=== PATIENT | female | born 2000 | race Caucasian/White ===

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

== ENCOUNTER 2018-03-21 09:25 | Day surgery (SDC) | payer OTHER ==
--- NOTE | 2018-03-11 20:03 | HP ---
PREOPERATIVE HISTORY AND PHYSICAL EXAM: DATE OF ADMISSION/SURGERY: 03/21/18 [facility] DATE OF OFFICE VISIT/ENCOUNTER: 03/05/18 ATTENDING SURGEON: Gayla Daily MD * (DICTATED BY TAMIKO TROTTER) PROCEDURE: Excision mass, left wrist. CHIEF COMPLAINT: Mass, left wrist. 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 She complaints of a painful mass on the volar radial aspect of her wrist that has been present for over a year, some times it gets quite painful. She has tried wearing a brace, but that has not been very helpful. She does not recall any specific injury. She occasionally has numbness and tingling associated with it. She would like to have it surgically removed. PAST MEDICAL HISTORY: Unremarkable. PAST SURGICAL HISTORY: 1. Tonsillectomy. 2. Cyst removed from behind left ear. CURRENT MEDICATIONS: 1. Apri 0.15-30 mg-mcg 1 tab daily. 2. Naproxen p.r.n. ALLERGIES: No known drug allergies. FAMILY MEDICAL HISTORY: Diabetes, hypertension, and cancer. SOCIAL HISTORY: The patient is a student at [employer]. She denies tobacco use or recreational drug use, and does not drink alcohol. REVIEW OF SYSTEMS: Negative for general, cephalic, cardiovascular, respiratory , GI, , other musculoskeletal, integumentary, endocrine, neurologic, and hematologic symptoms. Infectious disease is negative for MRSA, hepatitis C, and HIV. No known anesthesia problems. PHYSICAL EXAMINATION GENERAL: Well-developed, well-nourished, 18-year-old female, in no acute distress. VITAL SIGNS: Height 5 feet tall, weight 146 pounds, pulse rate 88, and blood pressure 92/70. HEENT: Normocephalic and atraumatic. Pupils are equal, round, and reactive to light and accommodation. Extraocular movements are intact. NECK: Supple. No palpable lymph nodes. Throat is clear. PULMONARY: Lungs are clear to auscultation bilaterally. No wheezes, rales, or rhonchi. CARDIOVASCULAR: Regular rate and rhythm. S1 and S2. No murmurs, rubs, or gallops. No edema. ABDOMEN: Positive bowel sounds, soft, and nontender. NEUROLOGIC: Alert and oriented x3. Cranial nerves II through XII are intact. Sensation is intact to light touch. MUSCULOSKELETAL: On exam of the left wrist, she has a cystic mass on the volar radial aspect of the wrist, it is tender to palpation. She has good range of motion of the wrist in both flexion and extension. She can make a full fist. Neurovascular function is intact. Skin is intact. IMAGING STUDIES: X-rays AP, lateral, and oblique of the left wrist appear normal. IMPRESSION: Left volar wrist ganglion. PLAN: The patient is scheduled to undergo an excision mass, left wrist with Dr. Daily on 03/21/18. She will return to the office 10 days postop for followup and suture removal. A prescription for Ultracet was e-scribed to the patient's pharmacy for postoperative pain management. TAMIKO TROTTER [id number]/[facility] #: [id number] MTDCindy
[2018-03-21] MEDS ORDERED: fentaNYL* 50 MCG/ML 2 ML VIAL (100 MCG VIAL) ONE (10:27)
[2018-03-21] MEDS ORDERED: Propofol* 10 MG/ML 20 ML BTL IV PUSH ONE ×2 (10:29→11:16)
[2018-03-21] MEDS ORDERED: Lidocaine 2% PF * 5 ML VIAL ONE (10:29)
[2018-03-21] MEDS ORDERED: Lidocaine 1% INJ* 10 MG/ML 30 ML SDV ONE (10:47)
[2018-03-21 13:18] VITALS: BP 101/62
[2018-03-21] MEDS ORDERED: traMADol TAB* 50 MG ONE (13:24)
[2018-03-21] MEDS ORDERED: Acetaminophen TAB* 325 MG ONE (13:25)
--- NOTE | 2018-03-22 05:26 | OP ---
DATE OF OPERATION: 03/21/18 [facility] DATE OF : 89 SURGEON: Gayla Daily MD RELATIONSHIP BANKER: TAMIKO Ramesh ANESTHESIA: Local MAC. PRE-OP DIAGNOSIS: Left wrist mass. POST-OP DIAGNOSIS: Left wrist mass. OPERATIVE PROCEDURE: Left wrist mass excision. ESTIMATED BLOOD LOSS: Zero. TOURNIQUET TIME: About 15 minutes. INDICATIONS FOR PROCEDURE: Fer is a 18-year-old female with a painful mass on the volar radial aspect of her left wrist. She presents for removal. Clinically, the mass is a ganglion cyst. DESCRIPTION OF PROCEDURE: The patient was brought to the operating room, was given a sedation anesthetic and a local infiltration total of 16 cc of 1% plain lidocaine on the volar radial aspect of her left wrist. The skin of her left upper extremity was prepped and draped in usual sterile fashion. The hand and forearm were exsanguinated and the tourniquet elevated to 250 mmHg. A Chevron incision was made centered over the mass which appeared to be a ganglion cyst emanating from the FCU tendon sheath. The radial artery was carefully dissected away from the mass and the mass was removed with a small portion of the flexor tendon sheath. The edges of the sheath were cauterized with the Bovie. There was no extension of the mass down to the wrist joint. The wound was reapproximated with 4-0 nylon suture and then dressed with Xeroform, 4x4, Webril and an Kayode wrap. The patient tolerated the procedure well and was brought to the recovery room in good condition. [id number]/[facility] #: [id number] [facility] HOSPITALCindy
== END 2018-03-21 13:33 | disposition home or self-care (01) ==
LOC: OREAST 09:25
PROVIDERS: ATTEND Orthopaedic Surgery
DX: M67.432 Ganglion, left wrist (principal)
CPT/HCPCS: 81025; 88304; A9270-GY; J2704; J3010

== ENCOUNTER 2018-04-05 14:41 | Emergency (ER) | payer OTHER ==
--- OUTSIDE RECORDS SUMMARY | 2018-04-05 14:46 | XMS REPORT ---
:2000 External Reference #:[id number] Author Organization [facility] Address [address] [place] [address] [place] [address] Phone [phone] Care Team Providers Name Role Phone Alisia Mcfarland DO Care Team Information Allergist/Pediatric Pulmonologist Unavailable Alisia Mcfarland DO Primary Care Physician Unavailable Payers Type Date Identification Numbers Payment Provider Subscriber Commercial Effective: Policy Number: [id number] [employer] Anton Lynch 2010 Medicaid PayID: [id number] [place] [id number] Problems Description No Information Family History Date Family Member(s) Problem(s) Comments General Diabetes General Hypertension General Cancer Social History Type Date Description Comments Lives With Sister ETOH Use Denies alcohol use Smoking Patient has never smoked Exercise Type/Frequency Exercises regularly Allergies, Adverse Reactions, Alerts Date Description Reaction Status Severity Comments 03/05/2018 NKDA active Medications Medication Date Status Form Strength Qnty SIG Indications Ordering Provider No Active Active Unknown Medications 018 Ultracet Hx Tablets 37.5-325mg 15tabs 1 tab by Gayla 018 - mouth Valdemar Daily every 018 4-6 hours as needed pain Apri Hx Tablets 0.15-30mg-m 1 by Unknown 000 - cg mouth every 018 day Vital Signs Date Vital Result Comment 03/31/2018 Height 60 inches 5'0" Heart Rate 80 /min BP Systolic 118 mmHg BP Diastolic 80 mmHg Body Temperature 97.5 F Pain Level 0 03/05/2018 Height 60 inches 5'0" Weight 146.50 lb Heart Rate 88 /min BP Systolic Sitting 92 mmHg BP Diastolic Sitting 70 mmHg Respiratory Rate 16 /min Body Temperature 98.6 F Pain Level 7 BMI (Body Mass Index) 28.6 kg/m2 10/26/2010 Height 60 inches 5'0" Weight 109.00 lb Heart Rate 82 /min BP Systolic 99 mmHg BP Diastolic 63 mmHg BMI (Body Mass Index) 21.3 kg/m2 Blood Pressure Percentile 24 % Height Percentile 31 % Weight Percentile 67th Results Test Date Test Result H/L Range Note Laboratory test 03/21/2018 Surgical Pathology SEE RESULT BELOW 1, 2 finding Laboratory test 12/28/2017 Monospot Negative Negative 3, 4 finding Leo Ellison 12/28/2017 Ebv Capsid Ag IgG Negative Negative 3 Comprehensive Ab Ebv Capsid Ag IgM Ab Negative Negative 3 Leo-Ellison Nuclear Antigen Negative Negative 3 Leo-Ellison Virus Interp See Comment 3, 5 Laboratory test finding 12/28/2017 Rapid Strep Molecular Negative Negative 6 1 [id number] 2 SEE RESULT BELOW Name: JOHAN LYNCH : [address]: Gayla Daily MD Acct: [id number] Unit: [id number] AGE: 18 Location: [facility] Re03/21/18 SEX: F Status: RUSSELL JEROME SPEC: [id number] MICHAEL: 03/21/18-[address] [facility] [address]: Gayla Daily MD REQ: [id number] RECD: 03/21/18 STATUS: SOUT _ ORDERED: LEVEL 3 COMMENTS: [id number] FINAL DIAGNOSIS Soft tissue, left wrist, excision: -- Ganglion cyst. PRE-OPERATIVE DIAGNOSIS Left wrist mass GROSS DESCRIPTION The specimen is received in formalin labeled, Ganglion Left Wrist, and consists of a 0.5 x 0.4 x 0.3 cm belle-white rubbery fibrous tissue fragment admixed with yellow- white fat. The specimen is inked, bisected and submitted entirely in one cassette. Signed by and Reported on: Florentin Mehta MD [id number] END OF REPORT DEPARTMENT OF PATHOLOGY, [address] [place] [address] Florentin Mehta M.D. Director [facility] # [id number] Would you like an EBV if Monospot is Negative?: Y 5 Results suggest no prior exposure to Leo-Ellison Virus. However, a second serum specimen should be tested in 10-14 days if clinically indicated. ADDITIONAL INFORMATION In most populations, at least 90% of the adult population will have been infected with EBV sometime in the past and therefore, will be positive for anti-VCA/IgG and anti- EBNA. Antibodies to EBNA develop 6-8 weeks after primary infection and remain present for life. Presence of VCA/ IgM antibodies indicates recent primary infection with EBV. Test Performed by: [facility] [address], [place] [address] 6 [place]. Commissioner: [id number] Procedures Description No Information Encounters Type Date Location Provider CPT E/M Dx Office Visit 03/05/2018 [facility] Gayla Daily, [id number] R22.32 3:15p [facility] M67.432 Office Visit 10/26/2010 8:30a [facility], [id number] 719.46 [facility] Plan of Care Future Appointment(s):05/01/2018 8:00 am - Gayla Daily M.D. at [facility]/2018 - Gayla Daily M.D.M67.432 Ganglion, left wristFollow up:Follow up: 4 weeksRecommendations:Massage scar 3-4 times daily for 5 minutes with cocoa butter or Vitamin E lotion
[2018-04-05 15:05] VITALS: BP 115/77
--- NOTE | 2018-04-05 16:10 | UC ---
Abdominal Pain Female HPI - HPI Summary HPI Summary: 18 year old female presents with 2 day history of lower abdominal pain. Describes pain as constant cramping. Denies aggravating factors. Improved with ibuprofen. Started with onset of menstrual period. She did note some heavy bleeding initially but has improved. Has history of 1 other episode of dysmenorrhea with the passing of some tissue that was thought to have been a miscarriage although she states this was ruled out and she was told she had "some extra tissue on her ovaries". Denies fever, chills, nausea, vomiting, diarrhea, dysuria, frequency, urgency, vaginal discharge. She is on oral control. Denies missing any doses. Sexually active and does not use any other barrier protection. - History of Current Complaint Chief Complaint: UCAbdominalPain Stated Complaint: ABD PAIN Time Seen by Provider: 04/05/18 15:35 Hx Obtained From: Patient Hx Last Menstrual Period: on control but period was 03/10/2018 ?: No Onset/Duration: Gradual Onset, Lasting Days - 2 Timing: Constant Severity Currently: Moderate Pain Intensity: 7 Location: Other - lower abdomen Radiates: No Character: Cramping Aggravating Factor(s): Nothing Alleviating Factor(s): OTC Analgesics Associated Signs and Symptoms: Positive: Vaginal Bleeding - Menses. Negative: Fever, Back Pain, Constipation, Blood in Stool, Urinary Symptoms, Vaginal Discharge, Nausea, Vomiting, Diarrhea Allergies/Adverse Reactions: Allergies Allergy/AdvReac Type Severity Reaction Status Date / Time No Known Allergies Allergy Verified 03/21/18 09:44 Home Medications: Home Medications Aspirin 325 mg PO 04/05/18 [History] PMH/Surg Hx/FS Hx/Imm Hx Previously Healthy: Yes - Denies significant PMH - Surgical History Surgical History: Yes Surgery Procedure, Year, and Place: 2004 T & A, CYST REMOVAL FORM [facility]. cyst removed from her wrist a week ago - Family History Family History: Noncontributory - Social History Occupation: Student Lives: Dormitory/Roommates Alcohol Use: None Substance Use Type: None Smoking Status (MU): Never Smoked Tobacco Have You Smoked in the Last Year: No - Immunization History Vaccination Up to Date: Yes Review of Systems Constitutional: Negative Respiratory: Negative Cardiovascular: Negative Gastrointestinal: Abdominal Pain Genitourinary: Negative Is Patient Immunocompromised?: No All Other Systems Reviewed And Are Negative: Yes Physical Exam Triage Information Reviewed: Yes Appearance: Well-Appearing, No Pain Distress, Well-Nourished Vital Signs: Initial Vital Signs Temp 97.7 F 04/05/18 14:57 Pulse 86 04/05/18 14:57 Resp 16 04/05/18 14:57 BP 115/77 04/05/18 14:57 Pulse Ox 98 04/05/18 14:57 Vital Signs Reviewed: Yes Respiratory: Positive: Lungs clear, Normal breath sounds, No respiratory distress Cardiovascular: Positive: RRR, No Murmur Abdomen Description: Positive: No Organomegaly, Soft, Other: - Mild lower abdominal tenderness without rebound tenderness or peritoneal signs.. Negative : CVA Tenderness (R), CVA Tenderness (L), Distended, Guarding Bowel Sounds: Positive: Present Neurological: Positive: Alert Skin Exam: Normal Diagnostics - Laboratory Diagnostic Studies Completed/Ordered: UA 1+ protein, trace ketones, 3+ blood. Urine negative. Abd Pain Female Course/Dx - Course Course Of Treatment: 18 year old female presents with 2 day history of lower abdominal pain with onset of mestrual period. She was concerned about unusually heavy bleeding at the start of her period after a previous episode that was thought to have been a miscarriage although there is some question whether this was actually the case. She states the bleeding has diminished and her pain improved with ibuprofen. Her POC urinalysis showed only small amount of protein and trace ketones with 3+ blood. Her urine was negative. I suspect that her symptoms are dysmenorrhea however discussed with patient that I could not rule out other diagnoses such as ovarian cyst, ovarian torsion, or appendicitis. She is electing for watchful waiting. Reviewed warning symptoms requiring immediate evaluation in the emergency room. Verbalizes understanding and agrees with POC. - Differential Dx/Diagnosis Differential Diagnosis: Appendicitis, Ectopic , Urinary Tract Infection Provider Diagnoses: dysmenorrhea Discharge - Sign-Out/Discharge Documenting (check all that apply): Patient Departure All imaging exams completed and their final reports reviewed: No Studies - Discharge Plan Condition: Stable Disposition: HOME Patient Education Materials: Dysmenorrhea (ED) Forms: *Work Release Referrals: Ceasar Garza, MANAGER PRODUCT SUPPORT [Primary Care Provider] - 3 Days (If no improvement in symptoms.) Additional Instructions: The urine test was performed in the clinic today did not show any signs of infection and her test was also negative. I suspect that your pain is related to your menstrual period. Continue taking ibuprofen 600 mg every 8 hours as needed for pain. Follow-up with your primary care provider in 3 days if symptoms persist. Seek immediate medical attention in the emergency room if you develop fever greater than 100.5 F, have worsening abdominal pain, persistent vomiting, heavy vaginal bleeding that requires you to change her pad more than once every 1-2 hours, you become weak, dizzy, or lightheaded, or any worsening of symptoms. - Billing Disposition and Condition Condition: STABLE Disposition: Home - Attestation Statements Provider Attestation: I was available for consult. This patient was seen by the PATRICIA. The patient was not presented to, seen by, or examined by me. -All
== END 2018-04-05 16:51 | disposition home or self-care (01) ==
LOC: UCEAST 14:41
DX: N94.6 Dysmenorrhea, unspecified (principal)
CPT/HCPCS: 81003; 84702; 99211; G0463

== ENCOUNTER 2018-06-21 19:41 | Emergency (ER) | payer OTHER ==
[2018-06-21] MEDS ORDERED: NS 0.9% 1000 ML* 1,000 ML IV ONE (19:50)
[2018-06-21] MEDS ORDERED: Ondansetron INJ* 2 MG/ML VIAL IV ONE (19:50)
[2018-06-21] MEDS ORDERED: Morphine VIAL* 4 MG/ML VIAL (1 ml vial) IV ONE ×2 (19:52→22:36)
--- NOTE | 2018-06-21 19:56 | ED ---
Abdominal Pain/Female - HPI Summary HPI Summary: A 18 y/o female accompanied by her parents presents to the ED c/o right lower quadrant abdominal pain. Currently, the patient is still experiencing right lower quadrant abdominal pain reaching 7/10 in severity. In the ED room, the patient has a pulse of 108 BPM and O2 saturation of 99%. As per triage, "BIB EMS due to RLQ pain since afternoon today. Pt reports pain started suddenly and has gotten worse since. Also reports nausea; denies vomiting or diarrhea. Reports hx of PCOS; LMP aprox. 05/31". According to the patient, she has been experiencing right lower abdominal pain since the start of today (06/21/2018). She has no other medical problems at this time. No PMHx of appendectomy and cholecystectomy. SHx of no ETOH or smoking. Patient denied pain medications at this time. - History of Current Complaint Chief Complaint: EDAbdPain Stated Complaint: ABD PAIN Time Seen by Provider: 06/21/18 19:47 Hx Obtained From: Patient Hx Last Menstrual Period: 04/05/18 Onset/Duration: Sudden Onset, Lasting Hours, Still Present Timing: Constant Severity Initially: Moderate Severity Currently: Moderate Pain Intensity: 7 Pain Scale Used: 0-10 Numeric Location: Discrete At: RLQ Radiates: No Aggravating Factor(s): Nothing Alleviating Factor(s): Nothing Associated Signs and Symptoms: Positive: Negative Allergies/Adverse Reactions: Allergies Allergy/AdvReac Type Severity Reaction Status Date / Time No Known Allergies Allergy Verified 05/25/18 13:28 PMH/Surg Hx/FS Hx/Imm Hx Endocrine/Hematology History: Denies: Hx Diabetes, Hx Thyroid Disease Cardiovascular History: Denies: Hx Hypertension, Hx Pacemaker/ICD Respiratory History: Denies: Hx Asthma, Hx Chronic Obstructive Pulmonary Disease (COPD) GI History: Denies: Hx Ulcer Sensory History: Reports: Hx Contacts or Glasses - GLASSES Denies: Hx Hearing Aid Opthamlomology History: Reports: Hx Contacts or Glasses - GLASSES Psychiatric History: Reports: Hx Anxiety - tends to get anxious with "overload" no meds Denies: Hx Panic Disorder - Surgical History Surgery Procedure, Year, and Place: 2004 T & A, CYST REMOVAL FORM [facility]. cyst removed from her wrist a week ago Hx Anesthesia Reactions: No Infectious Disease History: No Infectious Disease History: Denies: Hx Clostridium Difficile, Hx Hepatitis, Hx Human Immunodeficiency Virus (HIV), Hx of Known/Suspected MRSA, Hx Shingles, Hx Tuberculosis, Hx Known/ Suspected VRE, Hx Known/Suspected VRSA, History Other Infectious Disease, Traveled Outside the [place] in Last 30 Days - Family History Known Family History: Positive: Hypertension Family History: Noncontributory - Social History Alcohol Use: None Substance Use Type: Reports: None Smoking Status (MU): Never Smoked Tobacco Have You Smoked in the Last Year: No Review of Systems Negative: Fever Positive: Abdominal Pain - RLQ All Other Systems Reviewed And Are Negative: Yes Physical Exam - Summary Physical Exam Summary: Appearance: Well appearing, pain distress Skin: warm, dry, reflects adequate perfusion Head/face: normal Eyes: EOMI, OLEG ENT: normal Neck: supple, non-tender Respiratory: CTA, breath sounds present Cardiovascular: RRR, pulses symmetrical Abdomen: soft, tenderness in right lower quadrant Musculoskeletal: normal, strength/ROM intact Neuro: normal, sensory motor intact, A&Ox3 Triage Information Reviewed: Yes Vital Signs On Initial Exam: Initial Vitals Temp Pulse Resp BP Pulse Ox 98.6 F 110 20 139/72 100 06/21/18 19:42 06/21/18 19:42 06/21/18 19:42 06/21/18 19:42 06/21/18 19:42 Vital Signs Reviewed: Yes Diagnostics - Vital Signs Vital Signs Temp Pulse Resp BP Pulse Ox 06/21/18 19:42 98.6 F 110 20 139/72 100 - Laboratory Result Diagrams: 06/21/18 20:18 06/21/18 20:18 Lab Statement: Any lab studies that have been ordered have been reviewed, and results considered in the medical decision making process. - CT CT A/P CT Interpretation Completed By: Radiologist Summary of CT Findings: No CT findings to correlate with patient's symptomatology. Specifically no. appendicitis. ED PHYSICIAN REVIEWED THIS RADIOLOGY REPORT. Re-Evaluation - Re-Evaluation First Eval Re-Evaluation Time: 21:23 Comment: PATIENT WOULD LIKE PAIN MEDICATIONS. Abdominal Pain Fem Course/Dx - Course Course Of Treatment: A 18 y/o female accompanied by her parents presents to the ED c/o right lower quadrant abdominal pain. Currently, the patient is still experiencing right lower quadrant abdominal pain reaching 7/10 in severity. In the ED room, the patient has a pulse of 108 BPM and O2 saturation of 99%. According to the patient, she has been experiencing right lower abdominal pain since the start of today (06/21/2018). She has no other medical problems at this time. No PMHx of appendectomy and cholecystectomy. Physical examination findings significant for tenderness in right lower quadrant and patient is in pain distress. A CT A/P revealed no CT findings to correlate with patient's symptomatology. Specifically no appendicitis. Hematology, Chemistry, and urinalysis screens were done. No significant laboratory abnormalities were found , except in urine screen. In the ED course, the patient received Omnipaque, Morphine, Bactrim, Zofran. And IV fluids. Patient will be discharged with a diagnosis of UTI. Patient will be sent home with a prescription for Motrin, Zofran, and Bactrim. Patient is to take medication as prescribed. Patient is to follow up with primary care provider in 2-3 days. Patient is to return to ED for any new or worsening symptoms. Patient is agreeable with this plan. - Diagnoses Differential Diagnosis: Positive: Appendicitis, Renal Colic, Urinary Tract Infection Provider Diagnoses: UTI (urinary tract infection) Discharge - Sign-Out/Discharge Documenting (check all that apply): Patient Departure - DISCHARGE - Discharge Plan Condition: Stable Disposition: HOME Prescriptions: Ibuprofen TAB* [Motrin TAB* 600 MG] 600 mg PO Q8H PRN #15 tab MDD 3 PRN Reason: Pain Ondansetron ODT TAB* [Zofran 4 MG Odt TAB*] 4 mg PO Q8H PRN #15 tab.odt MDD 3 PRN Reason: Vomiting Sulfamethox/Trimethoprim DS* [Bactrim DS 800/160 TAB*] 1 tab PO BID #10 tab Patient Education Materials: Urinary Tract Infection in Women (ED) Referrals: Ceasar Garza, WEB PRESS OPERATOR ASSISTANT [Primary Care Provider] - 3 Days Additional Instructions: TAKE MEDICATION PRESCRIBED. FOLLOW UP WITH PRIMARY CARE PROVIDER IN 2-3 DAYS. RETURN TO ED FOR ANY NEW OR WORSENING SYMPTOMS. - Billing Disposition and Condition Condition: STABLE Disposition: Home - Attestation Statements Document Initiated by Scribe: Yes Documenting Scribe: Julian Webb Provider For Whom Scribe is Documenting (Include Credential): MD Tony Crawfordibe Attestation: Julian Lerma, scribed for Elie Guajardo MD on 06/22/18 at 0104. Scribe Documentation Reviewed: Yes Provider Attestation: The documentation as recorded by the scribe, Julian Webb accurately reflects the service I personally performed and the decisions made by me, Elie Guajardo MD Status of Scribe Document: Viewed
[2018-06-21 20:28] LABS: ABS Basophils 0 10^3/ul (0-0.2); ABS Eosinophils 0.1 10^3/ul (0-0.6); ABS Lymphocytes 1.1 10^3/ul (1.0-4.8); ABS Monocytes 0.7 10^3/ul (0-0.8); ABS Neutrophils 11.9 10^3/ul (1.5-7.7); ABS Nucleated RBC 0 10^3/ul; Eosinophil % 0.7 %; Hematocrit 38 % (35-47); Hemoglobin 12.7 g/dl (12.0-16.0); Lymphocyte % 7.9 %; Mean Corpuscular HGB Conc 34 g/dl (31-36); Mean Corpuscular Hemoglobin 29 pg (27-31); Mean Corpuscular Volume 88 fL (80-97); Mean Platelet Volume 7.1 fL (7.4-10.4); Nucleated Red Blood Cells % 0; Platelet Count 409 10^3/ul (150-450); Red Blood Count 4.33 10^6/ul (4.00-5.40); Red Cell Distribution Width 13 % (10.5-15); White Blood Count 13.9 10^3/ul (3.5-10.8)
[2018-06-21 20:37] LABS: INR 1.07 (0.77-1.02)
[2018-06-21 20:45] LABS: ALT 11 U/L (7-52); AST 14 U/L (13-39); Albumin/Globulin Ratio 1.3 (1-3); Alkaline Phosphatase 59 U/L (34-104); Anion Gap 9 mmol/L (2-11); Blood Urea Nitrogen 12 mg/dL (6-24); CO2 Carbon Dioxide 21 mmol/L (22-32); Calcium 9.1 mg/dL (8.6-10.3); Chloride 106 mmol/L (101-111); EGFR Non-African American 91.4 (>60); Globulin 3.2 g/dL (2-4); Glucose 118 mg/dL (70-100); Potassium 3.6 mmol/L (3.5-5.0); Sodium 136 mmol/L (135-145); Total Protein 7.2 g/dL (6.4-8.9)
[2018-06-21 20:52] LABS: HCG Pregnancy < 0.60 mIU/mL
[2018-06-21] MEDS ORDERED: Iohexol 300* (CONTRAST) 10 ML SDV IV ONE (21:11)
[2018-06-21 21:35] LABS: Urine Appearance Cloudy; Urine Bacteria Absent (Absent); Urine Bilirubin Negative (Negative); Urine Blood Negative (Negative); Urine Color Yellow; Urine Glucose Negative (Negative); Urine Ketones 1+ (Negative); Urine Nitrite Negative (Negative); Urine Protein Negative (Negative); Urine Red Blood Cell Absent (Absent); Urine Specific Gravity 1.021 (1.010-1.030); Urine Urobilinogen Negative (Negative); Urine White Blood Cell 1+(6-10/hpf) (Absent)
[2018-06-21] MEDS ORDERED: Sulfamethox/Trimethoprim DS 800/160* TAB PO ONE (23:42)
[2018-06-21 23:55] VITALS: BP 108/61
== END 2018-06-22 00:10 | disposition home or self-care (01) ==
LOC: ED 19:41
DX: N39.0 Urinary tract infection, site not specified (principal); R10.31 Right lower quadrant pain
CPT/HCPCS: 36415; 74177; 80053; 81003; 81015; 83690; 84702; 85025; 85610; 85730; 87086; 99284; A9270-GY; J2270; J2405; Q9967

== ENCOUNTER → 2018-10-14 17:23 | Emergency (ER) | payer OTHER ==
--- NOTE | 2018-10-14 18:58 | ED ---
Back Pain - HPI Summary HPI Summary: A 18 y/o F presents to the ED with c/o R flank pain onset today that is radiating to her lower back. The pain is rated 5 out of10. Associated sx: nausea. Denies fever, vomiting, hematuria, dysuria. She notes that two weeks ago , she had abd pain and dysuria. She saw her GI who took a urine sample and told her she had a UTI, but did not treat pt for UTI. - History of Current Complaint Chief Complaint: EDFlankPain Stated Complaint: RT SIDE AND BACK PAIN PER PT Time Seen by Provider: 10/14/18 18:54 Hx Obtained From: Patient Hx Last Menstrual Period: 04/05/18 Onset/Duration: Lasting Hours - today, Still Present Onset/Duration: Started Hours Ago - today, Atraumatic, Still Present Timing: Constant Back Pain Location: Is Discrete @ - R flank, Radiates To - lower back Severity Initially: Moderate Severity Currently: Moderate Pain Intensity: 5 Pain Scale Used: 0-10 Numeric Associated Signs And Symptoms: Negative: Fever, Other - pos: nausea. neg: vomiting, dysuria, hematuria - Allergies/Home Medications Allergies/Adverse Reactions: Allergies Allergy/AdvReac Type Severity Reaction Status Date / Time No Known Allergies Allergy Verified 09/10/18 08:20 PMH/Surg Hx/FS Hx/Imm Hx Previously Healthy: No Endocrine/Hematology History: Denies: Hx Diabetes, Hx Thyroid Disease Cardiovascular History: Denies: Hx Hypertension, Hx Pacemaker/ICD Respiratory History: Denies: Hx Asthma, Hx Chronic Obstructive Pulmonary Disease (COPD) GI History: Denies: Hx Ulcer Sensory History: Reports: Hx Contacts or Glasses - GLASSES Denies: Hx Hearing Aid Opthamlomology History: Reports: Hx Contacts or Glasses - GLASSES Psychiatric History: Reports: Hx Anxiety - tends to get anxious with "overload" no meds Denies: Hx Panic Disorder - Surgical History Surgery Procedure, Year, and Place: 2004 T & A, CYST REMOVAL FORM [facility]. cyst removed from her wrist a week ago Hx Anesthesia Reactions: No Infectious Disease History: No Infectious Disease History: Denies: Hx Clostridium Difficile, Hx Hepatitis, Hx Human Immunodeficiency Virus (HIV), Hx of Known/Suspected MRSA, Hx Shingles, Hx Tuberculosis, Hx Known/ Suspected VRE, Hx Known/Suspected VRSA, History Other Infectious Disease, Traveled Outside the [place] in Last 30 Days - Family History Known Family History: Positive: Hypertension - Social History Occupation: Student Lives: With Family Alcohol Use: None Hx Substance Use: No Substance Use Type: Reports: None Hx Tobacco Use: No Smoking Status (MU): Never Smoked Tobacco Have You Smoked in the Last Year: No Review of Systems Negative: Fever Positive: Nausea. Negative: Vomiting Positive: flank pain - R. Negative: dysuria, hematuria Musculoskeletal: Other - pos: lower back pain All Other Systems Reviewed And Are Negative: Yes Physical Exam - Summary Physical Exam Summary: Appearance: Well-appearing, Well-nourished, lying in bed comfortably Skin: Warm, dry, no obvious rash Eyes: sclera anicteric, no conjunctival pallor ENT: mucous membranes moist, pharynx appears normal Neck: Supple, nontender Respiratory: Clear to auscultation, no signs of respiratory distress Cardiovascular: Normal S1, S2. No murmurs. Normal distal pulses in tibial and radial bilaterally. Abdomen: Soft, nontender, normal active bowel sounds present, no CVA tenderness Musculoskeletal: Normal, Strength/ROM Intact Neurological: A&Ox3, awake and alert, mentation is normal, speech is fluent and appropriate Psychiatric: affect is normal, does not appear anxious or depressed Triage Information Reviewed: Yes Vital Signs On Initial Exam: Initial Vitals Temp Pulse Resp BP Pulse Ox 98.8 F 75 16 121/86 98 10/14/18 17:49 10/14/18 17:49 10/14/18 17:49 10/14/18 17:49 10/14/18 17:49 Vital Signs Reviewed: Yes Diagnostics - Vital Signs Vital Signs Temp Pulse Resp BP Pulse Ox 10/14/18 17:49 98.8 F 75 16 121/86 98 - Laboratory Result Diagrams: 10/14/18 19:11 10/14/18 19:11 Lab Statement: Any lab studies that have been ordered have been reviewed, and results considered in the medical decision making process. Re-Evaluation - Re-Evaluation 1 Re-Evaluation Time: 20:29 Change: Improved Comment: Discussing results with pt and plans for DC. Back Pain Course/Dx - Course Course Of Treatment: Pt is a 18 y/o F presents with R flank pain radiating to her lower back onset today. Denies fever, vomiting, hematuria, dysuria. She had an untreated UTI two weeks ago. Lab work is unremarkable. UA shows trace leukocyte esterase, ascorbic acid present and squamous epithelia present. Clinically I doubt the patient has a kidney infection as her pain is quite a bit lower than I would expect, not really about the flank, and her urinalysis is essentially normal. Will discharge patient home. - Diagnoses Provider Diagnoses: Low back pain Discharge - Sign-Out/Discharge Documenting (check all that apply): Patient Departure - DC Patient Received Moderate/Deep Sedation with Procedure: No - Discharge Plan Condition: Good Disposition: HOME Patient Education Materials: Acute Low Back Pain (ED) Referrals: Ceasar Garza, DESKTOP ENGINEER [Primary Care Provider] - 1 Week Additional Instructions: The urine test did not show any sign of infection, so I do not think your pain is coming from a kidney infection. It is more likely coming from the muscles and joints in the back. This should get better on its own, over the counter pain medication can be taken for symptom control. - Billing Disposition and Condition Condition: GOOD Disposition: Home - Attestation Statements Document Initiated by Laurence: Yes Documenting Scribe: Zina Ruffin Provider For Whom Laurence is Documenting (Include Credential): Dr. Jayden Mathur MD Scribe Attestation: I, dinorah Olguinibed for Dr. Jayden Mathur MD on 10/15/18 at 1050. Scribe Documentation Reviewed: Yes Provider Attestation: The documentation as recorded by the Zina dallas accurately reflects the service I personally performed and the decisions made by me, Dr. Jayden Mathur MD Status of Scribe Document: Viewed
[2018-10-14 19:18] LABS: ABS Basophils 0.1 10^3/ul (0-0.2); ABS Eosinophils 0.2 10^3/ul (0-0.6); ABS Lymphocytes 2.9 10^3/ul (1.0-4.8); ABS Monocytes 0.6 10^3/ul (0-0.8); ABS Neutrophils 5.4 10^3/ul (1.5-7.7); ABS Nucleated RBC 0 10^3/ul; Eosinophil % 1.8 %; Hematocrit 37 % (33-41); Hemoglobin 12.1 g/dL (12.0-16.0); Lymphocyte % 31.5 %; Mean Corpuscular HGB Conc 33 g/dL (31-36); Mean Corpuscular Hemoglobin 28 pg (27-31); Mean Corpuscular Volume 84 fL (80-97); Mean Platelet Volume 7.6 fL (7.4-10.4); Nucleated Red Blood Cells % 0; Platelet Count 410 10^3/uL (150-450); Red Blood Count 4.35 10^6 /uL (3.70-4.87); Red Cell Distribution Width 15 % (10.5-15); White Blood Count 9.1 10^3/uL (3.5-10.8)
[2018-10-14 19:38] LABS: ALT 9 U/L (7-52); AST 13 U/L (13-39); Albumin/Globulin Ratio 1.3 (1-3); Alkaline Phosphatase 78 U/L (34-104); Anion Gap 4 mmol/L (2-11); BUN/Creatinine Ratio 17.5 (8-20); Blood Urea Nitrogen 14 mg/dL (6-24); CO2 Carbon Dioxide 26 mmol/L (22-32); Calcium 9.3 mg/dL (8.6-10.3); Chloride 106 mmol/L (101-111); EGFR African American 110.7 (>60); EGFR Non-African American 91.4 (>60); Glucose 106 mg/dL (70-100); Potassium 3.8 mmol/L (3.5-5.0); Sodium 136 mmol/L (135-145)
[2018-10-14 19:39] LABS: Urine Appearance Cloudy; Urine Bacteria Absent (Absent); Urine Bilirubin Negative (Negative); Urine Blood Negative (Negative); Urine Color Yellow; Urine Glucose Negative (Negative); Urine Ketones Negative (Negative); Urine Nitrite Negative (Negative); Urine Protein Negative (Negative); Urine Red Blood Cell Trace(0-2/hpf) (Absent); Urine Specific Gravity 1.017 (1.010-1.030); Urine Squamous Epithelial Cell Present (Absent); Urine Urobilinogen Negative (Negative); Urine White Blood Cell Trace(0-5/hpf) (Absent)
[2018-10-14 19:44] LABS: HCG Pregnancy < 0.60 mIU/mL
[2018-10-14 21:01] VITALS: BP 112/67
== END | disposition home or self-care (01) ==
LOC: ED 17:23
DX: M54.5 Low back pain (principal); R10.9 Unspecified abdominal pain
CPT/HCPCS: 36415; 80053; 81003; 81015; 84702; 85025; 87086; 99282

== ENCOUNTER → 2018-12-04 15:34 | Emergency (ER) | payer OTHER ==
--- OUTSIDE RECORDS SUMMARY | 2018-12-04 15:53 | XMS REPORT | Continuity of Care Document ---
:2000 External Reference #:[id number] Author Name Whit Gonzalez Care Team Providers Name Role Phone Ceasar Garza NP Primary Care Physician Unavailable Payers Date Identification Numbers Payment Provider Subscriber Policy Number: [id number] [employer] Anton Lynch PayID: [id number] [address] [address] [place] [address] Effective: 2010 Policy Number: [employer] Anton Lynch [id number] Expires: 2018 PayID: [id number] [address] [address] [place] [address] Problems Active Problems Provider Date Right lower quadrant pain Sherry De NP Onset: 10/24/2018 Cyst of right ovary Sherry De NP Onset: 10/24/2018 Gastroesophageal reflux disease Sherry De NP Onset: 10/24/2018 Resolved Problems Constipation Sherry De NP Onset: 10/03/2018 Resolved: 10/25/2018 Family History Date Family Member(s) Observation Comments General Diabetes General Hypertension General Cancer General Melargia Parestetica Sister age 31 General Pituatary adenoma Sister age 16 General Thyroid Disease Mother Breast Cancer Mother Ovarian Cancer First Sister Breast Cancer Maternal Grandmother Heart Disease Social History Type Date Description Comments Sex Unknown Marital Status Single Lives With Sister 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 Student [employer] ETOH Use Denies alcohol use Tobacco Use Start: Unknown Patient has never smoked Smoking Status Reviewed: 11/26/18 Patient has never smoked Exercise Type/Frequency Exercises regularly Allergies, Adverse Reactions, Alerts Description No Known Drug Allergies Medications Active Medications SIG Qnty Indications Ordering Provider Date Fibercon one to two tablets Sherry De NP 10/25/2018 625mg daily Tablets Amoxicillin 2 by mouth twice a 40tabs Other Ordering 10/25/2018 500mg day Provider Tablets Omeprazole 1 by mouth every 30tabs Sherry De NP 10/03/2018 20mg morning 1/[address] before breakfast Align 1 by mouth every 14caps Sherry De NP 10/03/2018 4mg Capsules day Miralax please take 17 357gm Sherry De NP 10/03/2018 [id number] Powder grams in a drink of your choice. one/two drinks as directed. Apri 1 by mouth every Unknown 0.15-30mg-mcg day Tablets History Medications Fiber Complete Sherry De NP 10/25/2018 - Tablets 10/25/2018 No Active Medications Unknown 03/31/2018 - 10/03/2018 Ultracet 1 tab by mouth 15tabs Gayla Daily, 03/05/2018 - 37.5-325mg every 4-6 hours M.D. 03/30/2018 Tablets as needed pain Vital Signs Date Vital Result Comment 11/26/2018 8:13am Height 59 inches 4'11" Weight 147.00 lb Heart Rate 85 /min BP Systolic 109 mmHg BP Diastolic 75 mmHg O2 % BldC Oximetry 99 % BMI (Body Mass Index) 29.7 kg/m2 Last Menstrual Period [id number] 10/24/2018 3:33pm Weight 144.50 lb Heart Rate 80 /min BP Systolic 106 mmHg BP Diastolic 73 mmHg Respiratory Rate 16 /min Body Temperature 98.0 F 10/03/2018 9:15am Height 60 inches 5'0" Weight 146.25 lb Heart Rate 75 /min BP Systolic 101 mmHg BP Diastolic 70 mmHg Respiratory Rate 16 /min Body Temperature 97.6 F O2 % BldC Oximetry 100 % BMI (Body Mass Index) 28.6 kg/m2 05/14/2018 8:36am Height 60 inches 5'0" Weight 146.00 lb BP Systolic 128 mmHg BP Diastolic 82 mmHg Respiratory Rate 15 /min Body Temperature 97.8 F Pain Level 0 BMI (Body Mass Index) 28.5 kg/m2 03/31/2018 8:44am Height 60 inches 5'0" Heart Rate 80 /min BP Systolic 118 mmHg BP Diastolic 80 mmHg Body Temperature 97.5 F Pain Level 0 03/05/2018 3:47pm Height 60 inches 5'0" Weight 146.50 lb Heart Rate 88 /min BP Systolic Sitting 92 mmHg BP Diastolic Sitting 70 mmHg Respiratory Rate 16 /min Body Temperature 98.6 F Pain Level 7 BMI (Body Mass Index) 28.6 kg/m2 10/26/2010 8:22am Height 60 inches 5'0" Weight 109.00 lb Heart Rate 82 /min BP Systolic 99 mmHg BP Diastolic 63 mmHg BMI (Body Mass Index) 21.3 kg/m2 Blood Pressure Percentile 24 % Height Percentile 31 % Weight Percentile 67th Results Test Date Facility Test Result H/L Range Note Urinalysis Profile 10/07/2018 [facility] Urine Color Yellow [address] [place] [address] [phone] Urine Appearance Cloudy Urine Specific [place] 1.023 N 1.010-1.030 Urine pH 6.0 N 5-9 Urine Urobilinogen Negative Negative Urine Ketones Negative Negative Urine Protein Negative Negative Urine Leukocytes Trace Abnormal Negative Urine Blood Negative Negative Urine Nitrite Negative Negative Urine Bilirubin Negative Negative Urine Glucose Negative Negative Urine White Blood Cell Absent Absent Urine Red Blood Cell Trace(0-2/hpf) Absent Urine Bacteria Absent Absent Urine Squamous Epithelial Cell Present Abnormal Absent Urine Culture And 10/07/2018 [facility] Urine Culture SEE RESULT [address] [place] [address] [phone] Comp Metabolic 10/03/2018 [facility] Sodium 138 mmol/L N 135- [address] [place] [address] [phone] Potassium 4.4 mmol/L N 3.5-5.0 Chloride 104 mmol/L N 101-111 Co2 Carbon Dioxide 26 mmol/L N 22-32 Anion Gap 8 mmol/L N 2-11 Glucose 127 mg/dL High 70-100 Blood Urea Nitrogen 12 mg/dL N 6-24 Creatinine 0.81 mg/dL N 0.51-0.95 BUN/Creatinine Ratio 14.8 N 8-20 Calcium 9.4 mg/dL N 8.6-10.3 Total Protein 7.0 g/dL N 6.4-8.9 Albumin 4.1 g/dL N 3.2-5.2 Globulin 2.9 g/dL N 2-4 Albumin/Globulin Ratio 1.4 N 1-3 Total Bilirubin 0.40 mg/dL N 0.2-1.0 Alkaline Phosphatase 80 U/L N 34-104 Alt 12 U/L N 7-52 Ast 14 U/L N 13-39 Egfr Non- 90.1 >60 Egfr 109.1 >60 3 Laboratory test 10/03/2018 [facility] C Reactive 7.39 mg/L N < 8.[address] [place] [address] [phone] CBC Auto Diff 10/03/2018 [facility] White Blood 9.2 N 3.5- 10.[address] Count 10^3/[place] [address] [phone] Red Blood Count 4.57 10^6/uL N 3.70-4.87 Hemoglobin 12.7 g/dL N 12.0-16.0 Hematocrit 39 % N 33-41 Mean Corpuscular Volume 84 fL N 80-97 Mean Corpuscular Hemoglobin 28 pg N 27-31 Mean Corpuscular HGB Conc 33 g/dL N 31-36 Red Cell Distribution Width 14 % N 10.5-15 Platelet Count 453 10^3/uL High 150-450 Mean Platelet Volume 7.7 fL N 7.4-10.4 Abs Neutrophils 5.8 10^3/uL N 1.5-7.7 Abs Lymphocytes 2.8 10^3/uL N 1.0-4.8 Abs Monocytes 0.4 10^3/uL N 0-0.8 Abs Eosinophils 0.1 10^3/uL N 0-0.6 Abs Basophils 0 10^3/uL N 0-0.2 Abs Nucleated RBC 0 10^3/uL Granulocyte % 63.3 % Lymphocyte % 30.5 % Monocyte % 4.3 % Eosinophil % 1.6 % Basophil % 0.3 % Nucleated Red Blood Cells % 0 Laboratory test 10/03/2018 [facility] Erythrocyte Sed 14 mm/Hr N 0-20 [address] [place] [address] [phone] Urinalysis 10/03/2018 [facility] Urine Color Yellow Profile [address] [place] [address] [phone] Urine Appearance Cloudy Urine Specific [place] 1.017 N 1.010-1.030 Urine pH 6.0 N 5-9 Urine Urobilinogen Negative Negative Urine Ketones Negative Negative Urine Protein Negative Negative Urine Leukocytes 2+ Abnormal Negative Urine Blood Negative Negative Urine Nitrite Negative Negative Urine Bilirubin Negative Negative Urine Glucose Negative Negative Urine White Blood Cell Trace(0-5/hpf) Absent Urine Red Blood Cell Absent Absent Urine Bacteria Absent Absent Urine Squamous Epithelial Cell Present Abnormal Absent Laboratory test 03/21/2018 [facility] Surgical SEE RESULT 5 , [address] [place] [address] [phone] Laboratory test 12/28/2017 [facility] Monospot Negative Negative 7, [address] [place] [address] [phone] Leo Ellison 12/28/2017 [facility] Ebv Capsid Negative Negative Comprehensive [address] [place] [address] [phone] Ebv Capsid Ag IgM Ab Negative Negative Leo-Ellison Nuclear Antigen Negative Negative Leo-Ellison Virus Interp See Comment 9 Laboratory test 12/28/2017 [facility] Rapid Strep Negative Negative [address] [place] [address] [phone] 1 [id number] 2 SEE RESULT BELOW Name: LYNCHJOHAN Adair Ann : [address]: Sherry De NP Acct: [id number] Unit: [id number] AGE: 18 Location: [facility] Re10/07/18 SEX: F Status: REG REF SPEC: [id number] MICHAEL: 10/07/18-[address]: Sherry De NP REQ: [id number] RECD: 10/07/18 STATUS: COMP OTHR DR: Nick Nolasco MD _ SOURCE: URINE [facility]: ORDERED: Urine Culture Procedure Result Reported Site Urine Culture Final 10/09/18- 1138 ML No growth of clinically significant organisms * ML - Main Lab . END OF REPORT DEPARTMENT OF PATHOLOGY, [address] [place] [address] Florentin Mehta M.D. Director [facility] # [id number] 3 Because ethnic data is not always readily available, this report includes an eGFR for both -Americans and non- Americans. The National Kidney Disease Education Program (NKDEP) does not endorse the use of the MDRD equation for patients that are not between the ages of 18 and 70, are , have extremes of body size, muscle mass, or nutritional status, or are non- or non-. According to the National Kidney Foundation, irrespective of diagnosis, the stage of the disease is based on the level of kidney function: Stage Description GFR(mL/min/1.73 m(2)) 1 Kidney damage with normal or decreased GFR 90 2 Kidney damage with mild decrease in GFR 60-89 3 Moderate decrease in GFR 30-59 4 Severe decrease in GFR 15-29 5 Kidney failure <15 (or dialysis) 4 Test Performed by: [facility] [address] [place] [id number] Florentin Mehta M.D. Director of Laboratory 5 [id number] 6 SEE RESULT BELOW Name: JOHAN LYNCH : [address]: Gayla Daily MD Acct: [id number] Unit: [id number] AGE: 18 Location: [facility] Re03/21/18 SEX: F Status: RUSSELL WINTER SPEC: [id number] MICHAEL: 03/21/18-[address] [facility] [address]: Gayla Daily MD REQ: [id number] RECD: 03/21/18 STATUS: SOUT _ ORDERED: LEVEL 3 COMMENTS: [id number] FINAL DIAGNOSIS Soft tissue, left wrist, excision: [...] 1128 END OF REPORT DEPARTMENT OF PATHOLOGY, [address] [place] [address] Florentin Mehta M.D. Director [facility] # [id number] Would you like an EBV if Monospot is Negative?: Y 9 Results suggest no prior exposure to Leo-Ellison [...] primary infection with EBV. Test Performed by: [facility] [address] [place] [id number] [employer]: [id number] Procedures Date Code Description Status 03/21/2018 69632 Excision Ganglion Wrist/ Dorsal Or Volar; Primary Completed 03/21/2018 63683 Excision Ganglion Wrist/ Dorsal Or Volar; Primary Completed Encounters Type Date Location Provider Dx Diagnosis Office Visit 10/24/2018 [facility] Sherry De, N83.201 Unspecified 2:30p PATIENT OBSERVER ovarian cyst, right side E28.8 Other ovarian dysfunction K21.0 Gastro-esophageal reflux disease with esophagitis Office 10/03/2018 [facility] Sherry K21.9 Gastro-esophageal Visit 9:00a NERIS De reflux disease without esophagitis R10.11 Right upper quadrant pain Office Visit 03/05/2018 3:15p Orthopedic Gayla Daily, R22.32 [facility] swelling, mass C.M.A. and lump, left upper limb M67.432 Ganglion, left wrist Office Visit 10/26/2010 8:30a Orthopedic Daniel Dubose, 719.46 [facility] Lower Leg Plan of Treatment Future Appointment(s):01/23/2019 1:30 pm - Sherry De NP at [facility] Nrkjppghkgossujm46/29/2019 - Ania Jarquin [place].419 Encounter for gynecological examination (general) (routine)N94.6 Dysmenorrhea, unspecifiedComments:I suspect that your symptoms are related to dysmenorrhea and can be helped with ibuprofen and magnesium, in addition to your control pill.Ibuprofen 600mg every morning starting the first day of your period and continuing throughout your period.Magnesium glycinate 300mg a day every day to supportgood period health.I also recommend that you read the Period Repair Manual. It provides great information about period management including information about how working with stress, exercise, and diet can greatly improve your period as well.
--- OUTSIDE RECORDS SUMMARY | 2018-12-04 15:54 | XMS REPORT | Continuity of Care Document ---
:2000 External Reference #:[id number] Author Name Ceasar Garza, C.P.N.P Address [address] [place] [address] [place] [address] Care Team Providers Name Role Phone Ceasar Garza CPNP Primary Care Physician Unavailable Payers Date Identification Numbers Payment Provider Subscriber Policy Number: [id number] Gucci (Managed MD) Celine Lynch PayID: [id number] [address] [address] [place] [address] Family History Date Family Member(s) Observation Comments General Asthma General Seasonal Allergies General Constipation General Irritable Bowel Syndrome Mother Cancer First Sister Hypercholesterolemia First Sister Pituiatry adenoma First Sister Tiffani - history of pituitary macroadenoma, insulin insensitivity, migraines Maternal Grandmother Autoimmune disease Maternal Grandmother Heart Disease Paternal Uncles Blood Disorder Paternal Uncles Hypercholesterolemia Paternal Aunts Blood Disorder Social History Type Date Description Comments Sex Unknown General Living with sister Tobacco Use Start: Unknown Patient has never smoked Smoking Status Reviewed: 11/13/18 Patient has never smoked Allergies, Adverse Reactions, Alerts Description No Known Drug Allergies Medications Active Medications SIG Qnty Indications Ordering Provider Date Acetaminophen 1 or 2 tablets 60tabs K08.89 Ceasar Garza, 10/20/2018 500mg by mouth every 6 C.P.N.P Tablets hours as needed for pain Michaeler take one tablet 28tabs N94.6 Ceasar Garza, 04/30/2018 0.15-30mg-mcg by mouth at same C.P.N.P Tablets time of day every day Ibuprofen 200 4 tablets every K08.89 Unknown 200mg 8 hours as Tablets needed for pain History Medications Amoxicillin 1 tablet twice 20tabs K08.89 Ceasar Garza, 10/20/2018 - 875mg daily for 10 C.P.N.P 10/30/2018 Tablets days Ondansetron 1 by mouth every 10tabs R10.9 Ceasar Garza, 09/17/2018 - 8mg Tablets 8 hours as C.P.N.P 09/27/2018 Dispers needed for nausea/vomiting Miralax 1 capful in 8 1020gm K59.00 Ceasar Garza, 07/04/2018 - 3350NF Powder oz. of liquid C.P.N.P 11/13/2018 daily Apri take one by 28tabs N94.6 Ceasar Garza, 10/02/2017 - 0.15-30mg-mcg mouth at the C.P.N.P 04/30/2018 Tablets same time daily Sprintec 28 Take one tablet 28tabs N94.6 Ceasar Garza, 09/16/2017 - by mouth once C.P.N.P 10/02/2017 0.25-35mg-mcg Tablets daily Naproxen 1 tablet by 30tabs N94.6 Ceasar Garza, 09/16/2017 - 375mg Tablets mouth twice C.P.N.P 08/28/2018 daily with food as needed for pain Ranitidine HCL 1 by mouth twice 60tabs R10.13 Ceasar Garza, 2017 - 150mg a day as needed C.P.N.P 08/28/2018 Tablets Lotrisone apply sparingly 30gm R21 Ceasar Garza, 09/16/2017 - 1-0.05% Cream to affected area C.P.N.P 09/16/2017 twice daily Ketoconazole apply to rash on 30gm R21 Ceasar Garza, 09/16/2017 - 2% Cream left shoulder C.P.N.P 07/04/2018 twice daily Fluticasone apply to rash on 30gm Ceasar Garza, 09/16/2017 - Propionate shoulder twice C.P.N.P 08/28/2018 0.05% Cream daily for 5 days Hydrocortisone apply sparingly, 15gm R21 Dutch Fabian, 08/29/2017 - Valerate over the rash M.D. 09/03/2017 0.2% Cream twice a day for 5 days No Active Medications Unknown 07/27/2016 - 07/27/2016 Norethindrone Take 1 tablet by 84tabs N94.6 Ceasar Kayla, 07/27/2016 - Acetate/Ethinyl mouth at the C.P.N.P 09/16/2017 Estradiol/Ferrous same time daily Fumarate 1-20mg-mcg Tablets Amoxicillin/Clavulana 1 tablet twice 20tabs Ceasar Garza, 11/18/2015 - te Potassium daily for 10 C.P.N.P 11/28/2015 875-125mg days Tablets Naproxen 1 by mouth twice 60tabs R51 Ceasarkassidy Garza, 10/27/2015 - 500mg Tablets a day as needed C.P.N.P 07/27/2016 for pain Cetirizine HCL take one tablet 30tabs R42 Ceasar Garza, 10/27/2015 - 10mg by mouth daily C.P.N.P 07/27/2016 Tablets as needed for allergies Omeprazole 1 by mouth every 30caps Ceasar Garza, 06/16/2015 - 20mg day C.P.N.P 08/15/[address] No Active Medications Unknown 09/20/2014 - 06/16/2015 Naproxen 1 tablet by 60tabs 724.5 Ceasar Garza, 01/26/2014 - 500mg Tablets mouth twice C.P.N.P 02/25/2014 daily as needed for pain No Active Medications Unknown 07/02/2012 - 01/26/2014 Clotrimazole apply topically 30G Alisia Mcfarland, 01/24/2011 - 1% Cream bid D.O. 07/01/2012 Miralax 2-4 tsp po qd 255G 564.00 Angeli Maeve, 05/09/2010 - 3350NF Packet -mix with drink C.P.N.P. 07/01/2012 Wyus-Ac-Qmpd 1 PO qd 30units v20.2 Alisia Mcfarland, 09/25/2006 - 1mg D.O. 07/01/2012 Chewtabs Pulmicort Turbuhaler 1 puff bid 1units 493.90 Alisia Mcfarland, 09/25/2006 - D.O. 05/09/2010 200mcg/Inhalation Inhaler Medications Administered in Office Medication SIG Qnty Indications Ordering Provider Date TB Intradermal Test [facility] 12/11/2017 Injection H1N1 mist incoming rec only, Unknown 06/14/2009 not valid @BF Injection Immunizations CPT Code Status Date Vaccine Lot # [id number] Given 10/17/2017 Meningococcal B Recombinant Protein And Outer [id number] Membrane [Bexsero] 76716 Given 09/16/2017 Meningococcal B Recombinant Protein And Outer [id number] Membrane [Bexsero] 24853 Given 07/27/2016 Flu Inj Quadrivalent .5ml Preserve Free [id number] 94509 Given 10/27/2015 Meningococcal A,C,Y,W135 (Menactra) Preservative [id number] Free 91351 Given 10/27/2015 HPV 9 Gardasil 9 [id number] 51089 Given 04/19/2015 Flu Inj Quadrivalent .5ml Preserve Free [id number] 47347 Given 03/03/2015 HPV 9 Gardasil 9 [id number] 12588 Given 09/20/2014 HPV 4 Gardasil 4 [id number] 31829 Given 04/27/2014 Flu Inj Quadrivalent .5ml Preserve Free [id number] 09547 Given 04/11/2013 Flu Inj Quadrivalent .5ml Preserve Free [id number] 65705 Given 07/23/2012 Hepatitis A Vaccine Pediatric/Adolescent 2 Dose [id number] Schedule 61116 Given 07/02/2012 Flu Vacc Preserv Free Trivalent 3+yrs [id number] 53391 Given 07/13/2011 Meningococcal A,C,Y,W135 (Menactra) Preservative [id number] Free 83436 Given 07/13/2011 Hepatitis A Vaccine Pediatric/Adolescent 2 Dose [id number] Schedule 44995 Given 06/19/2011 Flu Vacc Preserv Free Trivalent 3+yrs [id number] 55089 Given 05/09/2010 Varicella (Chicken Pox) Immunization [id number] 75251 Given 05/09/2010 Flu Vacc Preserv Free Trivalent 3+yrs [id number] 15230 Given 05/04/2010 TdaP Immunization Age 7+ [id number] 01977 Given 06/25/2007 Flu Vacc Preserv Free Trivalent 3+yrs 35298 Given 05/15/2007 Flu Vaccine Age 3+Years [id number] 49790 Given 05/15/2007 Flu Vacc Preserv Free Trivalent 3+yrs 98353 Given 02/02/2002 Poliomyelitis Immunization 80654 Given 02/02/2002 MMR Virus Immunization 02695 Given 02/02/2002 DTP Immunization 70754 Given 02/02/2002 Hib Vaccine 48019 Given 01/09/1999 Hepatitis B Imm Age 0 to 19yr 66519 Given 01/09/1999 Varicella (Chicken Pox) Immunization 16122 Given 01/09/1999 Poliomyelitis Immunization 69676 Given 01/09/1999 MMR Virus Immunization 90013 Given 01/09/1999 DTP Immunization 67882 Given 01/09/1999 Hib Vaccine 11441 Given 1998 DTP Immunization 88758 Given 1998 Hib Vaccine 12374 Given 1998 Hepatitis B Imm Age 0 to 19yr 38682 Given 1998 Poliomyelitis Immunization 07305 Given 1998 Hepatitis B Imm Age 0 to 19yr 25012 Given 1998 Poliomyelitis Immunization 20678 Given 1998 DTP Immunization 93751 Given 1998 Hib Vaccine [id number] Refused 04/27/2014 HPV 4 Gardasil 4 Vital Signs Date Vital Result Comment 11/13/2018 2:59pm Weight 146.00 lb Weight 66.226 kg Body Temperature 98.7 F Heart Rate 84 /min BP Systolic 129 mmHg BP Diastolic 84 mmHg O2 % BldC Oximetry 98 % 10/20/2018 3:27pm Weight 146.12 lb Weight 66.282 kg Body Temperature 98.5 F 09/17/2018 3:35pm Weight 147.00 lb Weight 66.679 kg Body Temperature 98.3 F Heart Rate 107 /min BP Systolic 113 mmHg BP Diastolic 76 mmHg 08/28/2018 8:35am Weight 147.00 lb Weight 66.679 kg 07/04/2018 4:05pm Height 59.25 inches 4'11.25" Weight 143.00 lb Weight 64.865 kg Body Temperature 98.1 F Heart Rate 95 /min BP Systolic 113 mmHg BP Diastolic 73 mmHg BMI (Body Mass Index) 28.6 kg/m2 02/18/2018 3:12pm Weight 149.81 lb Weight 67.955 kg Body Temperature 98.0 F 09/16/2017 8:10am Height 59.5 inches 4'11.50" Height Percentile 3 % Weight 148.00 lb Weight 67.133 kg Weight Percentile 79th Heart Rate 86 /min BP Systolic 109 mmHg BP Diastolic 78 mmHg BMI (Body Mass Index) 29.4 kg/m2 Body Mass Index Percentile 92 % Right ear audiology results 25 db Left ear audiology results 20 db Left Visual Acuity Distance 20/25 Corrective Lenses Right Visual Acuity Distance 20/25 Corrective Lenses 08/29/2017 12:26pm Weight 1488.00 lb Weight 674.957 kg Weight Percentile >97th Body Temperature 97.6 F 06/21/2017 4:31pm Weight 142.25 lb Weight 64.525 kg Weight Percentile 73rd Body Temperature 97.8 F Heart Rate 80 /min BP Systolic 114 mmHg BP Diastolic 69 mmHg 07/27/2016 7:50am Height 59.25 inches 4'11.25" Height Percentile 3 % Weight 146.25 lb Weight 66.339 kg Weight Percentile 80th Heart Rate 85 /min BP Systolic 109 mmHg BP Diastolic 73 mmHg Blood Pressure Percentile 57 % BMI (Body Mass Index) 29.3 kg/m2 Body Mass Index Percentile 93 % Right ear audiology results 20 db Left ear audiology results 20 db Left Visual Acuity Distance 20/20 Corrective Lenses Right Visual Acuity Distance 20/20 Corrective Lenses 10/27/2015 8:59am Weight 155.00 lb Weight 70.308 kg Weight Percentile 88th Heart Rate 80 /min BP Systolic 113 mmHg BP Diastolic 76 mmHg Blood Pressure Percentile 0 % 07/07/2015 8:17am Height 59.50 inches 4'11.50" Height Percentile 3 % Weight 150.00 lb Weight 68.040 kg Weight Percentile 85th Heart Rate 82 /min BP Systolic 107 mmHg BP Diastolic 73 mmHg Blood Pressure Percentile 45 % BMI (Body Mass Index) 29.8 kg/m2 Body Mass Index Percentile 95 % 06/08/2015 12:50pm Weight 149.00 lb Weight 67.586 kg Weight Percentile 85th Body Temperature 98.5 F Heart Rate 78 /min BP Systolic 94 mmHg BP Diastolic 62 mmHg Blood Pressure Percentile 0 % 03/03/2015 1:40pm Weight 147.00 lb Weight 66.679 kg Weight Percentile 84th Body Temperature 97.7 F 09/20/2014 2:33pm Height 59 inches 4'11" Height Percentile 3 % Weight 145.00 lb Weight 65.772 kg Weight Percentile 83rd Heart Rate 72 /min BP Systolic 104 mmHg BP Diastolic 69 mmHg Blood Pressure Percentile 35 % BMI (Body Mass Index) 29.3 kg/m2 Body Mass Index Percentile 95 % 08/16/2014 11:31am Height 59.25 inches 4'11.25" Height Percentile 3 % Weight 144.38 lb Weight 65.489 kg Weight Percentile 83rd Heart Rate 81 /min BP Systolic 96 mmHg BP Diastolic 67 mmHg Blood Pressure Percentile 12 % BMI (Body Mass Index) 28.9 kg/m2 Body Mass Index Percentile 95 % 01/26/2014 3:15pm Weight 141.00 lb Weight 63.958 kg Weight Percentile 81st Body Temperature 97.8 F 08/31/2013 2:25pm Height 59.25 inches 4'11.25" Height Percentile 3 % Weight 139.00 lb Weight 63.050 kg Weight Percentile 80th Heart Rate 80 /min BP Systolic 100 mmHg BP Diastolic 69 mmHg Blood Pressure Percentile 23 % BMI (Body Mass Index) 27.8 kg/m2 Body Mass Index Percentile 94 % 03/03/2013 11:50am Weight 135.00 lb Weight 61.236 kg Weight Percentile 78th Body Temperature 98.3 F 07/23/2012 10:15am Height 59.25 inches 4'11.25" Height Percentile 4 % Weight 132.00 lb Weight 59.875 kg Weight Percentile 79th Heart Rate 88 /min BP Systolic 92 mmHg BP Diastolic 60 mmHg Blood Pressure Percentile 8 % BMI (Body Mass Index) 26.4 kg/m2 Body Mass Index Percentile 93 % 07/02/2012 11:37am Weight 136.00 lb Weight 61.690 kg Weight Percentile 82nd Body Temperature 97.5 F Blood Pressure Percentile 0 % 07/13/2011 10:03am Height 59 inches 4'11" Height Percentile 8 % Weight 124.50 lb Weight 56.473 kg Weight Percentile 79th Heart Rate 64 /min BP Systolic 102 mmHg BP Diastolic 74 mmHg Blood Pressure Percentile 36 % BMI (Body Mass Index) 25.1 kg/m2 Body Mass Index Percentile 92 % 05/08/2011 11:06am Weight 125.50 lb Weight 56.927 kg Weight Percentile 81st Body Temperature 98.6 F Blood Pressure Percentile 0 % 10/10/2010 11:09am Weight 115.50 lb Weight 52.391 kg Weight Percentile 77th Body Temperature 98.0 F Blood Pressure Percentile 0 % 05/09/2010 9:53am Height 58 inches 4'10" Height Percentile 21 % Weight 107.00 lb Weight 48.535 kg Weight Percentile 71st Heart Rate 72 /min BP Systolic 112 mmHg BP Diastolic 72 mmHg Blood Pressure Percentile 75 % BMI (Body Mass Index) 22.4 kg/m2 Body Mass Index Percentile 86 % 12/20/2009 3:24pm Weight 103.00 lb Weight 46.721 kg Weight Percentile 71st Body Temperature 98.1 F Blood Pressure Percentile 0 % 10/12/2009 12:27pm Weight 107.00 lb Weight 48.535 kg Weight Percentile 79th Body Temperature 97.5 F Blood Pressure Percentile 0 % 10/07/2008 11:14am Height 54 inches 4'6" Height Percentile 24 % Weight 92.00 lb Weight 41.731 kg Weight Percentile 77th Heart Rate 84 /min BP Systolic 100 mmHg BP Diastolic 60 mmHg BMI (Body Mass Index) 22.2 kg/m2 Body Mass Index Percentile 96 % 09/25/2006 2:14pm Height 49.5 inches 4'1.50" Height Percentile 18 % Weight 63.00 lb Weight 28.577 kg Weight Percentile 55th Heart Rate 90 /min BP Systolic 90 mmHg BP Diastolic 60 mmHg BMI (Body Mass Index) 18.1 kg/m2 Body Mass Index Percentile 82 % Results Test Date Facility Test Result H/L Range Note CBC Auto Diff 10/14/2018 [facility] White Blood 9.1 10^3/uL N 3.5-10.[address] [place] [address] [phone] Red Blood Count 4.35 10^6/uL N 3.70-4.87 Hemoglobin 12.1 g/dL N 12.0-16.0 Hematocrit 37 % N 33-41 Mean Corpuscular Volume 84 fL N 80-97 Mean Corpuscular Hemoglobin 28 pg N 27-31 Mean Corpuscular HGB Conc 33 g/dL N 31-36 Red Cell Distribution Width 15 % N 10.5-15 Platelet Count 410 10^3/uL N 150-450 Mean Platelet Volume 7.6 fL N 7.4-10.4 Abs Neutrophils 5.4 10^3/uL N 1.5-7.7 Abs Lymphocytes 2.9 10^3/uL N 1.0-4.8 Abs Monocytes 0.6 10^3/uL N 0-0.8 Abs Eosinophils 0.2 10^3/uL N 0-0.6 Abs Basophils 0.1 10^3/uL N 0-0.2 Abs Nucleated RBC 0 10^3/uL Granulocyte % 59.6 % Lymphocyte % 31.5 % Monocyte % 6.3 % Eosinophil % 1.8 % Basophil % 0.8 % Nucleated Red Blood Cells % 0 Comp Metabolic Panel 10/14/2018 [facility] Sodium 136 mmol/L N 135-145 [address] [place] [address] [phone] Potassium 3.8 mmol/L N 3.5-5.0 Chloride 106 mmol/L N 101-111 Co2 Carbon Dioxide 26 mmol/L N 22-32 Anion Gap 4 mmol/L N 2-11 Glucose 106 mg/dL High 70-100 Blood Urea Nitrogen 14 mg/dL N 6-24 Creatinine 0.80 mg/dL N 0.51-0.95 BUN/Creatinine Ratio 17.5 N 8-20 Calcium 9.3 mg/dL N 8.6-10.3 Total Protein 7.0 g/dL N 6.4-8.9 Albumin 4.0 g/dL N 3.2-5.2 Globulin 3.0 g/dL N 2-4 Albumin/Globulin Ratio 1.3 N 1-3 Total Bilirubin 0.30 mg/dL N 0.2-1.0 Alkaline Phosphatase 78 U/L N 34-104 Alt 9 U/L N 7-52 Ast 13 U/L N 13-39 Egfr Non- 91.4 >60 Egfr 110.7 >60 1 Laboratory test 10/14/2018 [facility] HCG < 0.60 mIU/ mL 2 finding [address] [place] [address] [phone] Urinalysis Profile 10/14/2018 [facility] Urine Color Yellow [address] [place] [address] [phone] Urine Appearance Cloudy Urine Specific [place] 1.017 N 1.010-1.030 Urine pH 6.0 N 5-9 Urine Urobilinogen Negative Negative Urine Ketones Negative Negative Urine Protein Negative Negative Urine Leukocytes Trace Abnormal Negative Urine Blood Negative Negative * * Abnormal Negative 3 Urine Nitrite Negative Negative Urine Bilirubin Negative Negative Urine Glucose Negative Negative Urine White Blood Cell Trace(0-5/hpf) Absent Urine Red Blood Cell Trace(0-2/hpf) Absent Urine Bacteria Absent Absent Urine Squamous Epithelial Cell Present Abnormal Absent Urine Culture And 10/14/2018 [facility] Urine Culture SEE RESULT [address] [place] [address] [phone] CBC Auto Diff 10/03/2018 [facility] White Blood 9.2 10^3/uL N 3.5-[address] Count .8 [place] [address] [phone] Red Blood Count 4.57 10^6/uL N 3.70-4.87 [...] Blood Cells % 0 Laboratory test 10/03/2018 [facility] C Reactive 7.39 mg/L N < 8.[address] [place] [address] [phone] Erythrocyte Sed Rate 14 mm/Hr N 0-20 5 Comp Metabolic Panel 10/03/2018 [facility] Sodium 138 mmol/L N 135-[address] [place] [address] [phone] Potassium 4.4 mmol/L N 3.5-5.0 Chloride 104 [...] Egfr Non- 90.1 >60 Egfr 109.1 >60 6 Laboratory test 08/28/2018 [facility] .Urine Culture <100k neg finding (317)- - In House Comp Metabolic 07/08/2018 [facility] Sodium 137 mmol/L N 135- 145 Panel [address] [place] [address] [phone] Potassium 4.2 mmol/L N 3.5-5.0 Chloride 105 mmol/L N 101-111 Co2 Carbon Dioxide 26 mmol/L N 22-32 Anion Gap 6 mmol/L N 2-11 Glucose 102 mg/dL High 70-100 Blood Urea Nitrogen 13 mg/dL N 6-24 Creatinine 0.78 mg/dL N 0.51-0.95 BUN/Creatinine Ratio 16.7 N 8-20 Calcium 9.6 mg/dL N 8.6-10.3 Total Protein 6.4 g/dL N 6.4-8.9 Albumin 4.1 g/dL N 3.2-5.2 Globulin 2.3 g/dL N 2-4 Albumin/Globulin Ratio 1.8 N 1-3 Total Bilirubin 0.40 mg/dL N 0.2-1.0 Alkaline Phosphatase 68 U/L N 34-104 Alt 12 U/L N 7-52 Ast 14 U/L N 13-39 Egfr Non- 94.2 >60 Egfr 113.9 >60 7 CBC Auto Diff 07/08/2018 [facility] White Blood 8.1 10^3/uL N 3.5-10.[address] [place], [place] [id number] [phone] Red Blood Count 4.07 10^6/uL N 4.00-5.40 Hemoglobin 11.8 g/dL Low 12.0-16.0 Hematocrit 35 % N 35-47 Mean Corpuscular Volume 87 fL N 80-97 Mean Corpuscular Hemoglobin 29 pg N 27-31 Mean Corpuscular HGB Conc 34 g/dL N 31-36 Red Cell Distribution Width 13 % N 10.5-15 Platelet Count 398 10^3/uL N 150-450 Mean Platelet Volume 8.0 fL N 7.4-10.4 Abs Neutrophils 5.0 10^3/uL N 1.5-7.7 Abs Lymphocytes 2.4 10^3/uL N 1.0-4.8 Abs Monocytes 0.4 10^3/uL N 0-0.8 Abs Eosinophils 0.1 10^3/uL N 0-0.6 Abs Basophils 0 10^3/uL N 0-0.2 Abs Nucleated RBC 0 10^3/uL Granulocyte % 62.4 % Lymphocyte % 30.3 % Monocyte % 5.4 % Eosinophil % 1.4 % Basophil % 0.5 % Nucleated Red Blood Cells % 0.1 Laboratory test 07/08/2018 [facility] C Reactive 12.74 mg/L High <8.[address] [place] [address] [phone] Erythrocyte Sed Rate 26 mm/Hr High 0-14 Celiac Panel 07/08/2018 [facility] Tissue Transglutaminase <1.2 U/mL [address] [place] [address] [phone] Immunoglobulin A 176 mg/dL 61 - 356 Celiac Interpretation See Comment 9 GC/Chlamydia 07/04/2018 [facility] Chlamydia Negative Negative 10 Ampl[address] [place] [address] [phone] Neisseria gonorrhoeae (GC) Rna Negative Negative Urine Culture And 06/21/2018 [facility] Urine SEE RESULT [address] [place] [address] [phone] Inr/Protime 06/21/2018 [facility] Inr 1.07 High 0.77- [address] 1.02 [place], [place] [id number] [phone] Laboratory test 06/21/2018 [facility] Partial 26.0 seconds N 26.0- finding [address] Thrombo Time 36.3 [place] [address] [phone] CBC Auto Diff 06/21/2018 [facility] White Blood 13.9 10^3/uL High 3.5-[address] Count 0.8 [place] [address] [phone] Red Blood Count 4.33 10^6/uL N 4.00-5.40 Hemoglobin 12.7 g/dL N 12.0-16.0 Hematocrit 38 % N 35-47 Mean Corpuscular Volume 88 fL N 80-97 Mean Corpuscular Hemoglobin 29 pg N 27-31 Mean Corpuscular HGB Conc 34 g/dL N 31-36 Red Cell Distribution Width 13 % N 10.5-15 Platelet Count 409 10^3/uL N 150-450 Mean Platelet Volume 7.1 fL Low 7.4-10.4 Abs Neutrophils 11.9 10^3/uL High 1.5-7.7 Abs Lymphocytes 1.1 10^3/uL N 1.0-4.8 Abs Monocytes 0.7 10^3/uL N 0-0.8 Abs Eosinophils 0.1 10^3/uL N 0-0.6 Abs Basophils 0 10^3/uL N 0-0.2 Abs Nucleated RBC 0 10^3/uL Granulocyte % 85.9 % Lymphocyte % 7.9 % Monocyte % 5.2 % Eosinophil % 0.7 % Basophil % 0.3 % Nucleated Red Blood Cells % 0 Comp Metabolic Panel 06/21/2018 [facility] Sodium 136 mmol/L N 135-[address] [place] [address] [phone] Potassium 3.6 mmol/L N 3.5-5.0 Chloride 106 mmol/L N 101-111 Co2 Carbon Dioxide 21 mmol/L Low 22-32 Anion Gap 9 mmol/L N 2-11 Glucose 118 mg/dL High 70-100 Blood Urea Nitrogen 12 mg/dL N 6-24 Creatinine 0.80 mg/dL N 0.51-0.95 BUN/Creatinine Ratio 15.0 N 8-20 Calcium 9.1 mg/dL N 8.6-10.3 Total Protein 7.2 g/dL N 6.4-8.9 Albumin 4.0 g/dL N 3.2-5.2 Globulin 3.2 g/dL N 2-4 Albumin/Globulin Ratio 1.3 N 1-3 Total Bilirubin 0.50 mg/dL N 0.2-1.0 Alkaline Phosphatase 59 U/L N 34-104 Alt 11 U/L N 7-52 Ast 14 U/L N 13-39 Egfr Non- 91.4 >60 Egfr 110.7 >60 12 Laboratory test finding 06/21/2018 [facility] Lipase 12 U/L N 11.0-82.[address] [place] [address] [phone] HCG < 0.60 mIU/mL 13 Urinalysis Profile 06/21/2018 [facility] Urine Color Yellow [address] [place] [address] [phone] Urine Appearance Cloudy Urine Specific [place] 1.021 N 1.010-1.030 Urine pH 6.0 N 5-9 Urine Urobilinogen Negative Negative Urine Ketones 1+ Abnormal Negative Urine Protein Negative Negative Urine Leukocytes 1+ Abnormal Negative Urine Blood Negative Negative Urine Nitrite Negative Negative Urine Bilirubin Negative Negative Urine Glucose Negative Negative Urine White Blood Cell 1+(6-10/hpf) Abnormal Absent Urine Red Blood Cell Absent Absent Urine Bacteria Absent Absent Urine Squamous Epithelial Cell Present Abnormal Absent Laboratory test 04/05/2018 [facility] Poc , Negative Negative [address] [place] [address] [phone] Poc Urinalysis 04/05/2018 [facility] Poc Glucose, Negative Negative [address] [place] [address] [phone] Poc Bilirubin, Urine Negative Negative Poc Ketone, Urine Trace Abnormal Negative Poc Specific [place], Urine 1.025 N 1.010-1.030 Poc Blood, Urine 3+ Abnormal Negative Poc pH, Urine 6.0 N 5-9 Poc Protein, Urine 1+ Abnormal Negative Poc Urobilinogen, Urine 1.0 Negative Poc Nitrite, Urine Negative Negative Poc Leukocytes, Urine Negative Negative Poc Color, Urine Red Abnormal Poc Clarity, Urine Cloudy 15 Laboratory test 12/28/2017 [facility] Monospot Negative Negative 16, [address] [place] [address] [phone] Leo Ellison 12/28/2017 [facility] Ebv Capsid Negative Negative Comprehensive [address] [place] [address] [phone] Ebv Capsid Ag IgM Ab Negative Negative Leo-Ellison Nuclear Antigen Negative Negative Leo-Ellison Virus Interp See Comment 18 Laboratory test 12/28/2017 [facility] Rapid Strep Negative Negative [address] [place] [address] [phone] Urinalysis 10/17/2017 [facility] Urine Cloudy Profile [address] [place] [address] [phone] Urine Specific [place] 1.008 Low 1.010-1.030 Urine pH 7.0 N 5-9 Urine Urobilinogen Negative Negative Urine Ketones Negative Negative Urine Protein Negative Negative Urine Leukocytes 2+ Abnormal Negative Urine Blood 3+ Abnormal Negative Urine Nitrite Negative Negative Urine Bilirubin Negative Negative Urine Glucose Negative Negative Urine White Blood Cell Absent Absent Urine Red Blood Cell 3+(>10/hpf) Abnormal Absent Urine Bacteria Absent Absent Urine Color Yellow Urine Culture And 10/17/2017 [facility] Urine Culture SEE RESULT [address] [place] [address] [phone] CBC Auto Diff 10/17/2017 [facility] White Blood 9.6 10^3/uL N 3.5-[address] Count 0.8 [place] [address] [phone] Red Blood Count 4.36 10^6/uL N 4.0-5.4 Hemoglobin 13.6 g/dL N 12.0-16.0 Hematocrit 40 % N 35-47 Mean Corpuscular Volume 91 fL N 80-97 Mean Corpuscular Hemoglobin 31 pg N 27-31 Mean Corpuscular HGB Conc 34 g/dL N 31-36 Red Cell Distribution Width 13 % N 10.5-15 Platelet Count 327 10^3/uL N 150-450 Mean Platelet Volume 7.5 um3 N 7.4-10.4 Abs Neutrophils 7.0 10^3/uL N 1.5-7.7 Abs Lymphocytes 1.9 10^3/uL N 1.0-4.8 Abs Monocytes 0.5 10^3/uL N 0-0.8 Abs Eosinophils 0.2 10^3/uL N 0-0.6 Abs Basophils 0 10^3/uL N 0-0.2 Abs Nucleated RBC 0 10^3/uL Granulocyte % 72.6 % N 38-83 Lymphocyte % 19.7 % Low 25-47 Monocyte % 5.3 % N 0-7 Eosinophil % 1.9 % N 0-6 Basophil % 0.5 % N 0-2 Nucleated Red Blood Cells % 0 Laboratory 10/17/2017 [facility] HCG < 0.60 21 test finding [address] mIU/[place] [address] [phone] Laboratory 09/26/2017 [facility] Urine Culture And SEE RESULT 22 test finding [address] [place] [address] [phone] GC/Chlamydia 09/26/2017 [facility] Chlamydia Negative Negative Amplified Rna [address] trachomatis Rna [place], [place] [id number] [phone] Neisseria gonorrhoeae (GC) Rna Negative Negative Laboratory test 08/29/2017 [facility] .Strep A, NEGATIVE finding (821)- - Rapid CBC Auto Diff 07/08/2017 [facility] White Blood 11.1 10^3/uL High 3.5-10. [address] Count 8 [place], [place] [id number] [phone] Red Blood Count 4.57 10^6/uL N 4.0-5.4 Hemoglobin 13.7 g/dL N 12.0-16.0 Hematocrit 41 % N 35-47 Mean Corpuscular Volume 90 fL N 80-97 Mean Corpuscular Hemoglobin 30 pg N 27-31 Mean Corpuscular HGB Conc 33 g/dL N 31-36 Red Cell Distribution Width 13 % N 10.5-15 Platelet Count 331 10^3/uL N 150-450 Mean Platelet Volume 8 um3 N 7.4-10.4 Abs Neutrophils 6.7 10^3/uL N 1.5-7.7 Abs Lymphocytes 3.4 10^3/uL N 1.0-4.8 Abs Monocytes 0.7 10^3/uL N 0-0.8 Abs Eosinophils 0.2 10^3/uL N 0-0.6 Abs Basophils 0 10^3/uL N 0-0.2 Abs Nucleated RBC 0 10^3/uL Granulocyte % 60.3 % N 38-83 Lymphocyte % 30.9 % N 25-47 Monocyte % 6.5 % N 1-9 Eosinophil % 2.1 % N 0-6 Basophil % 0.2 % N 0-2 Nucleated Red Blood Cells % 0 Comp Metabolic Panel 07/08/2017 [facility] Sodium 138 mmol/L N 133-145 [address] [place] [address] [phone] Potassium 3.2 mmol/L Low 3.5-5.0 Chloride 105 mmol/L N 101-111 Co2 Carbon Dioxide 28 mmol/L N 22-32 Anion Gap 5 mmol/L N 2-11 Glucose 104 mg/dL High 70-100 Blood Urea Nitrogen 14 mg/dL N 6-24 Creatinine 0.84 mg/dL N 0.51-0.95 BUN/Creatinine Ratio 16.7 N 8-20 Calcium 9.1 mg/dL N 8.6-10.3 Total Protein 7.1 g/dL N 6.4-8.9 Albumin 4.3 g/dL N 3.2-5.2 Globulin 2.8 g/dL N 2-4 Albumin/Globulin Ratio 1.5 N 1-3 Total Bilirubin 0.60 mg/dL N 0.2-1.0 Alkaline Phosphatase 72 U/L N 34-104 Alt 10 U/L N 7-52 Ast 14 U/L N 13-39 Egfr Non- 87.3 >60 Egfr 112.3 >60 23 Laboratory test 07/08/2017 [facility] Lipase < 10 U/L Low 11.0 -82.0 finding [address] [place] [address] [phone] CRP High Sensitivity 5.35 mg/L 24 HCG < 0.60 mIU/mL 25 Urinalysis Profile 07/08/2017 [facility] Urine Color Yellow [address] [place] [address] [phone] Urine Appearance Cloudy Urine Specific [place] 1.023 N 1.010-1.030 Urine pH 6.0 N 5-9 Urine Urobilinogen Negative Negative Urine Ketones Negative Negative Urine Protein Negative Negative Urine Leukocytes 3+ Abnormal Negative Urine Blood Negative Negative Urine Nitrite Negative Negative Urine Bilirubin Negative Negative Urine Glucose Negative Negative Urine White Blood Cell 2+(11-20/hpf) Abnormal Absent Urine Red Blood Cell 1+(3-5/hpf) Abnormal Absent Urine Bacteria Absent Absent Urine Squamous Epithelial Cell Present Abnormal Absent Laboratory 07/08/2017 [facility] Urine Culture And SEE RESULT 26 test finding [address] [place] [address] [phone] Laboratory 06/21/2017 In House [facility] .Urine Culture In neg test finding (899)- - House Laboratory 07/27/2016 [facility] House [facility] .Hemoglobin in 13.6 test finding (607)- - house Laboratory 11/07/2015 [facility] Rapid Strep Negative N Negative 27 test finding [address] [place] [address] [phone] CBC Auto Diff 06/08/2015 [facility] White Blood Count 7.8 10^3/ uL N 3.5-10.[address] [place] [address] [phone] Red Blood Count 4.55 10^6/uL N 4.0-5.4 Hemoglobin 13.8 g/dL N 12.0-16.0 Hematocrit 42 % N 35-47 Mean Corpuscular Volume 93 fL N 80-97 Mean Corpuscular Hemoglobin 30 pg N 27-31 Mean Corpuscular HGB Conc 33 g/dL N 31-36 Red Cell Distribution Width 13 % N 10.5-15 Platelet Count 288 10^3/uL N 150-450 Mean Platelet Volume 8 um3 N 7.4-10.4 Abs Neutrophils 5.0 10^3/uL N 1.5-7.7 Abs Lymphocytes 1.7 10^3/uL N 1.0-4.8 Abs Monocytes 0.9 10^3/uL High 0-0.8 Abs Eosinophils 0.3 10^3/uL N 0-0.6 Abs Basophils 0 10^3/uL N 0-0.2 Abs Nucleated RBC 0 10^3/uL N Granulocyte % 64.0 % N 38-83 Lymphocyte % 21.5 % Low 25-47 Monocyte % 11.0 % High 1-9 Eosinophil % 3.2 % N 0-6 Basophil % 0.3 % N 0-2 Nucleated Red Blood Cells % 0 N Comp Metabolic Panel 06/08/2015 [facility] Sodium 138 mmol/L N 133-145 [address] [place] [address] [phone] Potassium 4.2 mmol/L N 3.5-5.0 Chloride 104 mmol/L N 101-111 Co2 Carbon Dioxide 28 mmol/L N 22-32 Anion Gap 6 mmol/L N 2-11 Glucose 84 mg/dL N 70-100 Blood Urea Nitrogen 10 mg/dL N 6-24 Creatinine 0.85 mg/dL N 0.51-0.95 BUN/Creatinine Ratio 11.8 N 8-20 Calcium 9.9 mg/dL N 8.6-10.3 Total Protein 6.8 g/dL N 6.4-8.9 Albumin 4.4 g/dL N 3.2-5.2 Globulin 2.4 g/dL N 2-4 Albumin/Globulin Ratio 1.8 N 1-3 Total Bilirubin 0.60 mg/dL N 0.2-1.0 Alkaline Phosphatase 80 U/L N 34-104 Alt 19 U/L N 7-52 Ast 20 U/L N 13-39 Laboratory test 06/08/2015 [facility] C Reactive 4.81 mg/L N < 5.00 [address] Protein [place], [place] [id number] [phone] Erythrocyte Sed Rate 15 mm/Hr High 0-14 Ferritin 18.6 ng/mL N 11-307 Celiac Panel 06/08/2015 [facility] Tissue Transglutaminase <1.2 U/mL N [address] IgA [place], [place] [id number] [phone] Immunoglobulin A 128 mg/dL N 60 - 337 Celiac Interpretation See Comment N 30 H Pylori Iga 06/08/2015 [facility] Helicobacter Negative N Negative [address] pylori IgA Ab [place], [place] [id number] [phone] H pylori IgA Ab Index 0.00 N 31 H.Pylori Igg 06/08/2015 [facility] Helicobacter Negative N Negative AB [address] pylori IgG Ab [place], [place] [address] [phone] H pylori IgG AB Index 2.61 N 32 H.Pylori Igm 06/08/2015 [facility] Helicobacter Negative N Negative AB [address] pylori IgM Ab [place], [place] [id number] [phone] H pylori IgM AB Index 34.80 N 33 Laboratory test 03/03/2015 In House Lab .Urine Culture negative <100, 000 finding (537)- - In House colonis Laboratory test 03/03/2015 In House Lab . In Neg finding (607)- - House Laboratory test 09/20/2014 In House Lab Hemoglobin 13.6 finding (607)- - Laboratory test 08/31/2013 In House Lab Hemoglobin 13.4 finding (607)- - Laboratory test 07/23/2012 Hemoglobin 13.2 finding Laboratory test 05/09/2010 In House Lab Hemoglobin 14.3 finding (607)- - CBC With 12/17/2009 [facility] White Blood 6.8 CUMM 5.0-17.0 Electronic Diff [address] [place] [address] [phone] Red Cell Count 4.32 CUMM 3.9-5.3 Hemoglobin [...] Eosinophils 0.1 0-0.6 Abs Basophils 0 0-0.2 Comp Metabolic Panel 12/17/2009 [facility] Sodium 138 mmol/L 135-[address] [place] [address] [phone] Potassium 3.9 mmol/L 3.6-5.2 Chloride 106 mmol/L 101-111 Co2 (Carbon Dioxide) 23.0 mmol/L 22-32 Anion Gap 9.0 mmol/L 2-11 34 Glucose 111 mg/dL High 70-100 35 BUN 14 mg/dL 6-24 Creatinine 0.70 mg/dL 0.50-1.40 One Over Creatinine 1.40 BUN/Creatinine Ratio 20.0 8-20 Calcium 9.1 mg/dL 8.1-9.9 36 Total Protein 6.3 GM/DL 6.2-8.1 Albumin 3.9 GM/DL 3.6-5.4 Globulin 2.4 GM/DL 2-4 Albumin/Globulin Ratio 1.6 1-3 Bilirubin Total 0.9 mg/dL 0.4-1.5 37 Alkaline Phosphatase 166 U/L 130-390 Alt (SGPT) 14 U/L 14-54 Ast (Sgot) 34 U/L 12-42 Laboratory test 12/17/2009 [facility] Lipase 15 U/L Low 22-[address] [place] [address] [phone] Urinalysis 12/17/2009 [facility] Ua Color YELLOW Yellow W/Microscopic [address] [place] [address] [phone] Appearance-Urine CLEAR Clear Specific [place]-Ur 1.019 1.010-1.030 Esterase-Urine TRACE Abnormal Negative Nitrite NEGATIVE Negative [id number]-IDO NEGATIVE Negative Protein-Urine NEGATIVE Negative PH-Urine 6.5 5-9 Blood-Urine NEGATIVE Negative Ketones-Urine NEGATIVE Negative Bilirubin-Ur NEGATIVE Negative Glucose-Urine NEGATIVE Negative WBC-Urine 0-2 0-5 RBC-Urine 0-2 0-2 Mucus Urine SMALL None Epith Cells-Ur FEW None Bacteria-Urine 1+ None CBC With Manual 10/12/2009 [facility] White Blood 8.0 CUMM 5.0-17.[address] [place] [address] [phone] Red Cell Count 4.71 CUMM 3.9-5.3 Hemoglobin [...] RBC Morphology NORMAL Comp Metabolic Panel 10/12/2009 [facility] Sodium 138 mmol/L 135-[address] [place] [address] [phone] Potassium 4.2 mmol/L 3.6-5.2 Chloride 104 mmol/L 101-111 Co2 (Carbon Dioxide) 26.0 mmol/L 22-32 Anion Gap 8.0 mmol/L 2-11 38 Glucose 91 mg/dL 70-100 39 BUN 10 mg/dL 6-24 Creatinine 0.70 mg/dL 0.50-1.40 One Over Creatinine 1.40 BUN/Creatinine Ratio 14.3 8-20 Calcium 9.9 mg/dL 8.1-9.9 40 Total Protein 6.7 GM/DL 6.2-8.1 Albumin 4.2 GM/DL 3.6-5.4 Globulin 2.5 GM/DL 2-4 Albumin/Globulin Ratio 1.7 1-3 Bilirubin Total 0.9 mg/dL 0.4-1.5 41 Alkaline Phosphatase 297 U/L 130-390 Alt (SGPT) 18 U/L 14-54 Ast (Sgot) 24 U/L 12-42 Laboratory test finding 10/12/2009 [facility] Lipase 21 U/L Low 22-51 [address] [place] [address] [phone] C Reactive Protein 0.6 mg/dL High Less Than 0.5 Erythrocyte Sed Rate 14 MM/HR 0-20 Laboratory test 10/12/2009 In House Lab Urine Culture <100,000colonie finding (607)- - Inhouse Throat-Beta Strept 03/26/2009 [facility] Throat-Beta Strep NG [address] [facility] [place] [address] [phone] Laboratory test 10/08/2008 In House Lab Hemoglobin 13.8 finding (607)- - Laboratory test 09/25/2006 In House Lab Hemoglobin 12.5 finding (607)- - 1 Because ethnic data is not always readily [...] 15-29 5 Kidney failure <15 (or dialysis) 2 <5.0 Negative 5.0 - 25.0 Indeterminate (Repeat testing recommended after 72 hours) >25.0 Positive Perimenopausal women can display HCG levels of up to 20 mIU/mL 3 *Ascorbic acid is present which may interfere with detection of blood. 4 SEE RESULT BELOW Name: JOHAN LYNCH : [address]: Jayden Mathur MD Acct: [id number] Unit: [id number] AGE: 18 Location: ED Re10/14/18 SEX: F Status: REG ER SPEC: [id number] MICHAEL: 10/14/18 [facility] DR: Jayden Mathur MD REQ: [id number] RECD: 10/14/18 STATUS: MARY JO DELA CRUZ DR: Ceasar Garza [facility] _ SOURCE: URINE SPDESC: ORDERED: Urine Culture Procedure Result Reported Site Urine Culture Final 10/15/18- 0807 ML No Growth (<1,000 CFU/mL) * ML - Main Lab . END OF REPORT DEPARTMENT OF PATHOLOGY, [address] [place] [address] Florentin Mehta M.D. Director [facility] # [id number] 5 Test Performed by: [facility] [address] [place] [address] Florentin Mehta M.D. Director of Laboratory 6 Because ethnic data is not always readily [...] 15-29 5 Kidney failure <15 (or dialysis) 7 Because ethnic data is not always readily [...] 15-29 5 Kidney failure <15 (or dialysis) 8 REFERENCE VALUE <4.0 (Negative) Test Performed by: [place] [address] 9 Negative serology. Celiac disease unlikely. However, approximately 10% of patients with celiac disease are seronegative. Also, patients who are already adhering to a gluten-free diet may be seronegative. If celiac disease is highly clinically suspected, consider HLA-DQ typing. Test Performed by: [address] [address] 10 [id number] 11 SEE RESULT BELOW Name: JOHAN LYNCH : [address]: Elie Guajardo MD Acct: [id number] Unit: [id number] AGE: 18 Location: ED Re06/21/18 SEX: F Status: DEP ER SPEC: [id number] MICHAEL: 06/21/[address]: Elie Guajardo MD REQ: [id number] RECD: 06/21/18 STATUS: MARY JO DELA CRUZ DR: Ceasar Garza [employer] _ SOURCE: URINE SPDESC: ORDERED: Urine Culture Procedure Result Reported Site Urine Culture Final 06/23/18- 0800 ML No growth of clinically significant organisms * ML - Main Lab . END OF REPORT DEPARTMENT OF PATHOLOGY, [address] [place] [address] Florentin Mehta M.D. Director [facility] # [id number] 12 Because ethnic data is not always readily [...] 15-29 5 Kidney failure <15 (or dialysis) 13 <5.0 Negative 5.0 - 25.0 Indeterminate (Repeat testing recommended after 72 hours) >25.0 Positive Perimenopausal women can display HCG levels of up to 20 mIU/mL 14 Electrolytic Etcher: [id number] If is still suspected, please repeat test after 48 to 72 hours. 15 Electrolytic Etcher: [id number] Would you like an EBV if Monospot is Negative?: Y 18 Results suggest no prior exposure to Leo-Ellison [...] primary infection with EBV. Test Performed by: [facility] [address] [place] [address] 19 Electrolytic Etcher: [id number] 20 SEE RESULT BELOW Name: JOHAN LYNCH Ann : [address]: Jayden Mckinley MD Acct: [id number] Unit: [id number] AGE: 17 Location: ED Re10/17/17 SEX: F Status: DEP ER SPEC: [id number] MICHAEL: 10/17/[address]: Raul MORRISON REQ: [id number] RECD: 10/17/17 STATUS: MARY JO DELA CRUZ DR: Ceasar Garza [employer] Jayden Mckinley MD _ SOURCE: URINE SPDESC: ORDERED: Urine Culture Procedure Result Reported Site Urine Culture Final 10/18/17- 1246 ML No Growth (<1,000 CFU/mL) * ML - Main Lab . END OF REPORT DEPARTMENT OF PATHOLOGY, [address] [place] [address] Florentin Mehta M.D. Director [facility] # [id number] 21 <5.0 Negative 5.0 - 25.0 Indeterminate (Repeat testing recommended after 72 hours) >25.0 Positive Perimenopausal women can display HCG levels of up to 20 mIU/mL 22 SEE RESULT BELOW Name: JOHAN LYNCH : [address]: Ceasar Garza NP Acct: [id number] Unit: [id number] AGE: 17 Location: [facility] Re09/26/17 SEX: F Status: REG REF SPEC: [id number] MICHAEL: 09/26/[address]: Ceasar Garza NP REQ: [id number] RECD: 09/26/17 STATUS: COMP _ SOURCE: URINE SPDESC: ORDERED: Urine Culture QUERIES: Urine Source: Clean Catch Procedure Result Reported Site Urine Culture Final 09/27/17- 1627 ML No Growth (<1,000 CFU/mL) * ML - Main Lab . END OF REPORT DEPARTMENT OF PATHOLOGY, [address] [place] [address] Florentin Mehta M.D. Director [facility] # [id number] 23 Because ethnic data is not always readily [...] 15-29 5 Kidney failure <15 (or dialysis) 24 Low risk: <1.00 Average risk: 1.00-3.00 High risk: >3.00 25 <5.0 Negative 5.0 - 25.0 Indeterminate (Repeat testing recommended after 72 hours) >25.0 Positive Perimenopausal women can display HCG levels of up to 20 mIU/mL 26 SEE RESULT BELOW Name: JOHAN LYNCH : [address]: Galen Harvey MD Acct: [id number] Unit: [id number] AGE: 17 Location: ED Re07/08/17 SEX: F Status: DEP ER SPEC: [id number] MICHAEL: 07/08/[address]: Katty MORRISON REQ: [id number] RECD: 07/08/17 STATUS: MARY JO DELA CRUZ DR: Ceasar Garza [employer] Galen Harvey MD _ SOURCE: URINE [facility]: ORDERED: Urine Culture Procedure Result Reported Site Urine Culture Final 07/10/17- 0859 ML No growth of clinically significant organisms * ML - MAIN LAB ([facility]) . END OF REPORT * ML=Testing performed at Main Lab DEPARTMENT OF PATHOLOGY, [address] [place] [address] Florentin Mehta M.D. Director [facility] # [id number] 27 Electrolytic Etcher: [id number] SORAYA TRUJILLO Due to the increased sensitivity of molecular testing, reflex cultures are no longer performed. 28 Acute inflammation: >10.00 29 REFERENCE VALUE <4.0 (Negative) Test Performed by: [place] [address] Pm Head Cook: Galen Smith II, M.D., Ph.D. 30 Negative serology. Celiac disease unlikely. However, approximately 10% of patients with celiac disease are seronegative. Also, patients who are already adhering to a gluten-free diet may be seronegative. If celiac disease is highly clinically suspected, consider HLA-DQ typing. Test Performed by: [place] [address] Pm Head Cook: Galen Smith II, M.D., Ph.D. 31 Results with Index Values of <18.00 are negative. Test Performed by: [place] [address] Pm Head Cook: Galen Smith II, M.D., Ph.D. 32 Results with Index Values of <8.95 are negative. Test Performed by: [place] [address] Pm Head Cook: Galen Smith II, M.D., Ph.D. 33 Results with Index Values of <36.00 are negative. Test Performed by: [place] [address] Pm Head Cook: Galen Smith II, M.D., Ph.D. 34 Anion gap measurement may be of limited value in the presence of any alkalosis, especially in a combined acid base disorder. . 35 Note change in reference range as of 02/19/08. The change was based on recommendations from the [employer] [place] [employer]. 36 Please note change in reference range effective 07 . 37 A metabolite of Naproxen, O-desmethylnaproxen, has been shown to interfere with the Jendrassik-Trina method for measuring total bilirubin. Samples from patients who have taken Naproxen have shown spurious elevation in total bilirubin levels. 38 Anion gap measurement may be of limited value in the presence of any alkalosis, especially in a combined acid base disorder. . 39 Note change in reference range as of 02/19/08. The change was based on recommendations from the [employer] [place] [employer]. 40 Please note change in reference range effective 07 . 41 A metabolite of Naproxen, O-desmethylnaproxen, has been shown to interfere with the Jendrassik-Trina method for measuring total bilirubin. Samples from patients who have taken Naproxen have shown spurious elevation in total bilirubin levels. 42 NEGATIVE FOR GROUP A BETA STREPTOCOCCUS Encounters Type Date Location Provider Dx Diagnosis Office Visit 10/20/2018 [facility] Ceasar Guzmanbhumi, K08.89 Other specified 3:45p C.P.N.P disorders of teeth and supporting structures Office Visit 09/17/2018 [facility] Ceasar Garza, R10.9 Unspecified abdominal 3:30p C.P.N.P pain Office Visit 08/28/2018 [facility] Ceasar Garza, R10.9 Unspecified abdominal 8:45a C.P.N.P pain Office Visit 07/04/2018 [facility] Office Ceasar Garza, R10.31 Right lower quadrant 4:30p C.P.N.P pain K59.00 Constipation, unspecified Office Visit 02/18/2018 3:45p Main Office Angeli Mcfarlane, M67.432 Ganglion, left C.P.N.P. wrist Office Visit 12/11/2017 4:00p [facility] Office Nurses [place] Z11.1 Encounter for Office screening for respiratory tuberculosis Office Visit 09/16/2017 8:30a [facility] Office Ceasar Z00.00 Encntr for general Kayla, adult medical exam C.P.N.P w/o abnormal findings R21 Rash and other nonspecific skin eruption G47.9 Sleep disorder, unspecified N94.6 Dysmenorrhea, unspecified Z30.011 Encounter for initial prescription of contraceptive pills R10.13 Epigastric pain Office Visit 08/29/2017 Main Office Dutch Peralta, R21 Rash and other 12:30p M.D. nonspecific skin eruption Office Visit 06/21/2017 East Office Alisia Mcfarland, A09 Infectious 4:15p D.O. gastroenteritis and colitis, unspecified Office Visit 07/27/2016 [facility] Office Ceasar Garza, Z00.00 Encntr for general 7:45a C.P.N.P adult medical exam w/o abnormal findings N94.6 Dysmenorrhea, unspecified G47.9 Sleep disorder, unspecified Office Visit 10/27/2015 9:30a [facility] Office Ceasar Garza, C.P.N.P R51 Headache R42 Dizziness and giddiness Office Visit 06/08/2015 1:00p [facility] Office Ceasar Garza, R10.13 Epigastric pain C.P.N.P Office Visit 03/03/2015 2:00p [facility] Office Ceasar Garza, 626.4 Irregular C.P.N.P Menstrual Cycle Office Visit 09/20/2014 3:30p [facility] Office Ceasar Garza, V20.2 Routine Or C.P.N.P Child Health Check V85.53 Body Mass Index Peds, 85TH% Less Than 95TH% For Age 729.5 Pain In Limb 625.3 Dysmenorrhea Office Visit 08/16/2014 11:45a [facility] Office Ceasar Garza, 850.0 Concussion W/ No C.P.N.P Loss Of Consciousness Office Visit 01/26/2014 3:45p [facility] Office Ceasar Garza, 724.5 Backache Unspec C.P.N.P Office Visit 08/31/2013 3:00p [facility] Office Ceasar Garza, V20.2 Routine Infant Or C.P.N.P Child Health Check V85.53 Body Mass Index Peds, 85TH% Less Than 95TH% For Age 789.07 Pain Abdominal Generalized Office Visit 03/03/2013 12:15p [facility] Office Dutch Peralta, 840.8 Sprains & M.D. Strains Shoulder & Upper Arm Other Spec Sites Office Visit 07/23/2012 11:00a [facility] Office Ceasar Garza, V20.2 Routine C.P.N.P Or Child Health Check V85.53 Body Mass Index Peds, 85TH% Less Than 95TH% For Age 625.3 Dysmenorrhea Office Visit 07/02/2012 12:15p Main Office Alisia Mcfarland, 527.5 Salivary Gland D.O. Sialolithiasis Office Visit 07/13/2011 11:00a Main Office Angeli Mcfarlane, V20.2 Routine Infant Or C.P.N.P. Child Health Check 719.46 Pain Joint Lower Leg Office Visit 05/08/2011 11:30a Main Office Alisia Mcfarland, 009.0 Infectious Colitis D.O. Enteritis & Gastroenteritis Office Visit 10/10/2010 11:30a Main Office Alisia Mcfarland, 719.46 Pain Joint Lower Leg D.O. Office Visit 05/09/2010 10:00a Main Office Angeli V20.2 Routine Infant Or Maeve, Child Health Check C.P.N.P. 564.00 Constipation Unspecified Office Visit 12/20/2009 4:00p East Office Alisia Bartolo, 789.07 Pain Abdominal D.O. Generalized Office Visit 10/12/2009 12:15p Main Office Alisia Mcfarland, 789.07 Pain Abdominal D.O. Generalized Office Visit 10/07/2008 11:30a Main Office Alisia Mcfarland, V20.2 Routine Or D.O. Child Health Check Office Visit 09/25/2006 2:15p Main Office Alisia Mcfarland, V20.2 Routine Or D.O. Child Health Check 493.90 Asthma Unspec W/O Status Asthmaticus Office Visit 04/20/2005 2:00p Main Office Alisiajosh Mcfarland, V20.2 Routine Infant Or D.O. Child Health Check Plan of Treatment 11/13/2018 - Ceasar Garza, C.P.N.PR42 Dizziness and giddinessNew Orders:EKG 12 Lead, Scheduled: 11/19/18Comments:Discussed the role that stress and anxiety can play with these symptoms - please consider starting counseling!Follow up:We will call with results as [id number] Chest pain, unspecifiedComments:Please try warm compresses, ibuprofen as needed
--- NOTE | 2018-12-04 18:10 | ED ---
HPI Chest Pain - HPI Summary HPI Summary: 18-year-old female presents with chest pain for the past couple weeks. She states that she is having left-sided chest pain. She states it is sharp in nature. She says that is it constant. Pain is reproducible. She denies any shortness breath or cough. No recent illness. No recent travel. She is on control and does have family history of blood clots. She denies any recent trauma. Denies any drug or smoking history. She states that sleep helps with the pain. She was seen by her primary a week ago for this. She does have family history of costochondritis. she denies any abdominal pain. She did not yesterday but states it did not change the pain at all. - History of Current Complaint Chief Complaint: EDChestWallPain Time Seen by Provider: 12/04/18 17:51 Hx Last Menstrual Period: 04/05/18 Pain Intensity: 7 - Allergy/Home Medications Allergies/Adverse Reactions: Allergies Allergy/AdvReac Type Severity Reaction Status Date / Time No Known Allergies Allergy Verified 09/10/18 08:20 Home Medications: Home Medications Cholecalciferol (Vitamin D3) [Vitamin D3] 2,000 unit PO DAILY 12/04/18 [History Confirmed 12/04/18] Ferrous Sulfate TAB* 325 mg PO DAILY 12/04/18 [History Confirmed 12/04/18] Omeprazole CAP (NF) [Prilosec CAP* 20 MG] 20 mg PO QAM 12/04/18 [History Confirmed 12/04/18] PMH/Surg Hx/FS Hx/Imm Hx Endocrine/Hematology History: Denies: Hx Diabetes, Hx Thyroid Disease Cardiovascular History: Denies: Hx Hypertension, Hx Pacemaker/ICD Respiratory History: Denies: Hx Asthma, Hx Chronic Obstructive Pulmonary Disease (COPD) GI History: Denies: Hx Ulcer Sensory History: Reports: Hx Contacts or Glasses - GLASSES Denies: Hx Hearing Aid Opthamlomology History: Reports: Hx Contacts or Glasses - GLASSES Psychiatric History: Reports: Hx Anxiety - tends to get anxious with "overload" no meds Denies: Hx Panic Disorder - Surgical History Surgery Procedure, Year, and Place: 2004 T & A, CYST REMOVAL FORM [facility]. cyst removed from her wrist a week ago Hx Anesthesia Reactions: No Infectious Disease History: No Infectious Disease History: Denies: Hx Clostridium Difficile, Hx Hepatitis, Hx Human Immunodeficiency Virus (HIV), Hx of Known/Suspected MRSA, Hx Shingles, Hx Tuberculosis, Hx Known/ Suspected VRE, Hx Known/Suspected VRSA, History Other Infectious Disease, Traveled Outside the [place] in Last 30 Days - Family History Known Family History: Positive: Cardiac Disease, Hypertension - Social History Alcohol Use: None Hx Substance Use: No Substance Use Type: Reports: None Hx Tobacco Use: No Smoking Status (MU): Never Smoked Tobacco Have You Smoked in the Last Year: No Review of Systems Negative: Fever Positive: Chest Pain Negative: Shortness Of Breath, Cough All Other Systems Reviewed And Are Negative: Yes Physical Exam Triage Information Reviewed: Yes Vital Signs On Initial Exam: Initial Vitals Temp Pulse Resp BP Pulse Ox 98.1 F 81 20 131/80 99 12/04/18 15:41 12/04/18 15:41 12/04/18 15:41 12/04/18 15:41 12/04/18 15:41 Vital Signs Reviewed: Yes Appearance: Positive: Well-Appearing Skin: Positive: Warm, Dry Head/Face: Positive: Normal Head/Face Inspection Eyes: Positive: Normal, EOMI, OLEG, Conjunctiva Clear ENT: Positive: Normal ENT inspection, Pharynx normal Respiratory/Lung Sounds: Positive: Clear to Auscultation, Breath Sounds Present , Other - reproducible chest pain Cardiovascular: Positive: Normal, RRR Musculoskeletal: Positive: Normal, Other - left shoulder, tenderness left shoulder, 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 - Radiology chest Radiology Interpretation Completed By: ED Physician Summary of Radiographic Findings: no acute disease - EKG No standard instances Cardiac Rate: NL EKG Rhythm: Sinus Rhythm ST Segment: Normal EKG Comparison: No Significant Change Summary of EKG Findings: sinus rhythm Chest Pain Course/Dx - Course Course Of Treatment: 18-year-old female presents with chest pain for the past couple weeks. She states that she is having left-sided chest pain. She states it is sharp in nature. She says that is it constant. Pain is reproducible. She denies any shortness breath or cough. No recent illness. No recent travel. She is on control and does have family history of blood clots. She denies any recent trauma. Denies any drug or smoking history. She states that sleep helps with the pain. She was seen by her primary a week ago for this. She does have family history of costochondritis. On exam has reproducible chest pain. lungs clear to auscultation. Heart regular rate and rhythm. EKG shows sinus rhythm. Chest x-ray normal. troponin zero. d-dimer negative. Discussed could be costochondritis. Also could be referred pain from the neck. Has no midline tenderness neck and has full ROM of such. Told to place ice or heat and take ibuprofen. Told to follow with primary. Patient understands agrees with plan. - Chest Pain Differential Diagnosis/HQI/PQRI: Chest Wall, Lower Respiratory Infection, Pulmonary Embolism - Diagnoses Provider Diagnoses: Atypical chest pain, Left shoulder pain Discharge - Sign-Out/Discharge Documenting (check all that apply): Patient Departure Patient Received Moderate/Deep Sedation with Procedure: No - Discharge Plan Condition: Good Disposition: HOME Patient Education Materials: Chest Wall Pain (ED) Forms: *Gen. Provider Communication, *Work Release Referrals: Ceasar Garza NP [Primary Care Provider] - Additional Instructions: take ibuprofen every 6 hours as needed for pain Apply ice/heat Follow up with primary Return to ED if develop any new or worsening symptoms - Billing Disposition and Condition Condition: GOOD Disposition: Home
[2018-12-04 18:28] LABS: ABS Eosinophils 0.2 10^3/ul (0-0.6); ABS Lymphocytes 2.3 10^3/ul (1.0-4.8); ABS Monocytes 0.6 10^3/ul (0-0.8); ABS Neutrophils 4.2 10^3/ul (1.5-7.7); Eosinophil % 2.1 %; Hematocrit 38 % (35-47); Hemoglobin 12.8 g/dL (12.0-16.0); Lymphocyte % 31.8 %; Mean Corpuscular HGB Conc 34 g/dL (31-36); Mean Corpuscular Hemoglobin 29 pg (27-31); Mean Corpuscular Volume 86 fL (80-97); Mean Platelet Volume 7.5 fL (7.4-10.4); Nucleated Red Blood Cells % 0.1; Platelet Count 328 10^3/uL (150-450); Red Blood Count 4.44 10^6 /uL (3.70-4.87); Red Cell Distribution Width 15 % (10-15); White Blood Count 7.3 10^3/uL (3.5-10.8)
[2018-12-04 18:47] LABS: Albumin 3.8 g/dL (3.2-5.2); Anion Gap 4 mmol/L (2-11); CO2 Carbon Dioxide 27 mmol/L (22-32); Calcium 9.4 mg/dL (8.6-10.3); Chloride 107 mmol/L (101-111); Potassium 4.6 mmol/L (3.5-5.0); Sodium 138 mmol/L (135-145)
[2018-12-04 18:50] LABS: HCG Pregnancy < 0.60 mIU/mL
[2018-12-04 18:53] LABS: ALT 9 U/L (7-52); AST 12 U/L (13-39); Albumin/Globulin Ratio 1.3 (1-3); Alkaline Phosphatase 67 U/L (34-104); BUN/Creatinine Ratio 12.2 (8-20); Blood Urea Nitrogen 10 mg/dL (6-24); C Reactive Protein 13.95 mg/L (<8.01); EGFR African American 107.5 (>60); EGFR Non-African American 88.9 (>60); Glucose 111 mg/dL (70-100); Total Protein 6.8 g/dL (6.4-8.9)
[2018-12-04 19:37] VITALS: BP 109/71
== END | disposition home or self-care (01) ==
LOC: ED 15:34
DX: R07.89 Other chest pain (principal); M25.512 Pain in left shoulder; Z79.899 Other long term (current) drug therapy
CPT/HCPCS: 36415; 71046; 80053; 84484; 84702; 85025; 85379; 86140; 93005; 99282

== ENCOUNTER 2019-03-08 09:13 | Emergency (ER) | payer OTHER ==
[2019-03-08 11:02] VITALS: BP 105/74
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
== END 2019-03-08 12:28 | disposition home or self-care (01) ==
LOC: UCEAST 09:13
DX: M54.2 Cervicalgia (principal); M25.552 Pain in left hip
CPT/HCPCS: 72020; 72170; 99212; G0463

== ENCOUNTER 2019-03-11 18:41 | Emergency (ER) | payer OTHER ==
[2019-03-11 20:32] VITALS: BP 107/75
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
[2019-03-11] MEDS ORDERED: Cyclobenzaprine TAB* 10 MG PO ONE (21:55)
--- NOTE | 2019-03-12 15:15 | UC ---
- Progress Note Progress Note: Final radiologist reading comes back for the left shoulder from March 11, 2019 as no fracture. The provider interpretation of the same date was there may be a lucency in the head of the humerus and the plan was to have him follow-up with orthopedics if not completely improved in 3 days. Nursing to call patient and inform them the radiologist has read the x-ray as no fracture. This does not change the plan is that the patient does not improve any to follow -up with orthopedics as or could be soft tissue injury that is not shown on x- ray. Course/Dx - Diagnoses Provider Diagnoses: Left shoulder pain, Sprain of left shoulder, Muscle spasm Discharge ED - Sign-Out/Discharge Documenting (check all that apply): Patient Departure All imaging exams completed and their final reports reviewed: Yes - Discharge Plan Condition: Stable Disposition: HOME Prescriptions: Cyclobenzaprine TAB* [Flexeril 10 MG TAB*] 10 mg PO TID PRN #21 tab PRN Reason: Spasms - Muscle Ibuprofen TAB* [Motrin TAB* 600 MG] 600 mg PO Q6H PRN #30 tab PRN Reason: moderate pain Patient Education Materials: Shoulder Sprain (ED) Forms: *Work Release Referrals: [facility] [Provider Group] - 3 Days [facility] [Outside] - 3 Days Additional Instructions: 1-Please take Ibuprofen PO q6-8hrs prn after meals as directed to alleviate pain and swelling. 2-Please apply ice, keep your shoulder immobilized with the shoulder sling for 3-4 days and then resume movement slowly 3-Please f/u with Orthopedic DR from sports Medicine in 3 days if not improvement of symptoms for further evaluation and treatment. - Billing Disposition and Condition Condition: STABLE Disposition: Home
== END 2019-03-11 22:12 | disposition home or self-care (01) ==
LOC: UCEAST 18:41
DX: S43.402A Unspecified sprain of left shoulder joint, initial encounter (principal); V43.52XA Car driver injured in collision with other type car in traffic accident, initial encounter; Y92.410 Unspecified street and highway as the place of occurrence of the external cause; M62.830 Muscle spasm of back
CPT/HCPCS: 99213; A9270-GY; G0463

== ENCOUNTER 2019-04-30 15:19 | Emergency (ER) | payer SELFPAY ==
--- OUTSIDE RECORDS SUMMARY | 2019-04-30 16:09 | XMS REPORT | Continuity of Care Document ---
:2000 External Reference #:[id number] Author Name Sunni Turk MD (transmitted by agent of provider Elaine Ballard) Address [address] [facility], [place] [address] Care Team Providers Name Role Phone Alisia Mcfarland DO - Pediatrics Care Team Information Lace Stripper [phone] Terrie Galindo MD - Internal Care Team Information Lace Stripper Medicine Problems Active Problems Provider Date Right lower quadrant pain Sherry De NP Onset: 10/24/2018 Gastroesophageal reflux disease Sherry De NP Onset: 10/24/2018 Dysmenorrhea Ania Jarquin N.Toi Onset: 11/27/2018 Resolved Problems Constipation Sherry De NP Onset: 10/03/2018 Resolved: 10/25/2018 Social History Type Date Description Comments Sex Unknown ETOH Use Denies alcohol use Tobacco Use Start: Unknown Patient has never smoked Recreational Drug Use Denies Drug Use Smoking Status Reviewed: 03/27/19 Patient has never smoked Exercise Type/Frequency Exercises regularly Allergies, Adverse Reactions, Alerts Description No Known Drug Allergies Medications Active Medications SIG Qnty Indications Ordering Provider Date Miralax please take 17 357gm Sherry De NP 10/03/2018 [id number] Powder grams in a drink of your choice. one/two drinks as directed. Apri 1 by mouth every Unknown 0.15-30mg-mcg day Tablets Iron Tablet Unknown Vitamin D 1 by mouth every Unknown 2000Unit day Tablets History Medications Fiber Complete Sherry De NP 10/25/2018 - Tablets 10/25/2018 Fibercon one to two tablets Sherry De NP 10/25/2018 - 625mg Tablets daily 01/21/2019 Amoxicillin 2 by mouth twice a 40tabs Other Ordering 10/25/2018 - 500mg day Provider 01/23/2019 Tablets Omeprazole take 1 tablet by 30caps Nick Nolasco, 10/03/2018 - 20mg mouth every morning 03/27/[address] 1/2 hour before breakfast Align 1 by mouth every 14caps Sherry De NP 10/03/2018 - 4mg Capsules day 01/23/2019 Immunizations Description No Information Available Vital Signs Date Vital Result Comment 03/27/2019 3:19pm Height 59 inches 4'11" Weight 153.00 lb Heart Rate 82 /min BP Systolic Sitting 117 mmHg BP Diastolic Sitting 65 mmHg Body Temperature 99.2 F O2 % BldC Oximetry 97 % BMI (Body Mass Index) 30.9 kg/m2 01/23/2019 10:27am Height 59 inches 4'11" Weight 149.00 lb Heart Rate 89 /min BP Systolic 107 mmHg BP Diastolic 65 mmHg O2 % BldC Oximetry 98 % BMI (Body Mass Index) 30.1 kg/m2 Results Test Date Facility Test Result H/L Range Note Urinalysis Profile 10/07/2018 [facility] Urine Color Yellow [address] [place] [address] [phone] Urine Appearance Cloudy Urine Specific [place] 1.023 Normal 1.010-1.030 Urine pH 6.0 Normal 5-9 Urine Urobilinogen Negative Negative Urine Ketones Negative Negative Urine Protein Negative Negative Urine Leukocytes Trace Abnormal Negative Urine Blood Negative Negative Urine Nitrite Negative Negative Urine Bilirubin Negative Negative Urine Glucose Negative Negative Urine White Blood Cell Absent Absent Urine Red Blood Cell Trace(0-2/hpf) Absent Urine Bacteria Absent Absent Urine Squamous Epithelial Cell Present Abnormal Absent Urine Culture And 10/07/2018 [facility] Urine SEE RESULT [address] [place] [address] [phone] Comp Metabolic 10/03/2018 [facility] Sodium 138 mmol/L Normal 135-[address] [place] [address] [phone] Potassium 4.4 mmol/L Normal 3.5-5.0 Chloride 104 mmol/L Normal 101-111 Co2 Carbon Dioxide 26 mmol/L Normal 22-32 Anion Gap 8 mmol/L Normal 2-11 Glucose 127 mg/dL High 70-100 Blood Urea Nitrogen 12 mg/dL Normal 6-24 Creatinine 0.81 mg/dL Normal 0.51-0.95 BUN/Creatinine Ratio 14.8 Normal 8-20 Calcium 9.4 mg/dL Normal 8.6-10.3 Total Protein 7.0 g/dL Normal 6.4-8.9 Albumin 4.1 g/dL Normal 3.2-5.2 Globulin 2.9 g/dL Normal 2-4 Albumin/Globulin Ratio 1.4 Normal 1-3 Total Bilirubin 0.40 mg/dL Normal 0.2-1.0 Alkaline Phosphatase 80 U/L Normal 34-104 Alt 12 U/L Normal 7-52 Ast 14 U/L Normal 13-39 Egfr Non- 90.1 >60 Egfr 109.1 >60 3 Laboratory test 10/03/2018 [facility] C Reactive 7.39 mg/L Normal <8.[address] [place] [address] [phone] CBC Auto Diff 10/03/2018 [facility] White Blood 9.2 Normal 3.5 -10.[address] Count 10^3/uL [place], [place] [id number] [phone] Red Blood Count 4.57 10^6/uL Normal 3.70-4.87 Hemoglobin 12.7 g/dL Normal 12.0-16.0 Hematocrit 39 % Normal 33-41 Mean Corpuscular Volume 84 fL Normal 80-97 Mean Corpuscular Hemoglobin 28 pg Normal 27-31 Mean Corpuscular HGB Conc 33 g/dL Normal 31-36 Red Cell Distribution Width 14 % Normal 10.5-15 Platelet Count 453 10^3/uL High 150-450 Mean Platelet Volume 7.7 fL Normal 7.4-10.4 Abs Neutrophils 5.8 10^3/uL Normal 1.5-7.7 Abs Lymphocytes 2.8 10^3/uL Normal 1.0-4.8 Abs Monocytes 0.4 10^3/uL Normal 0-0.8 Abs Eosinophils 0.1 10^3/uL Normal 0-0.6 Abs Basophils 0 10^3/uL Normal 0-0.2 Abs Nucleated RBC 0 10^3/uL Granulocyte % 63.3 % Lymphocyte % 30.5 % Monocyte % 4.3 % Eosinophil % 1.6 % Basophil % 0.3 % Nucleated Red Blood Cells % 0 Laboratory test 10/03/2018 [facility] Erythrocyte Sed 14 mm/Hr Normal 0-20 [address] [place] [address] [phone] Urinalysis 10/03/2018 [facility] Urine Color Yellow Profile [address] [place] [address] [phone] Urine Appearance Cloudy Urine Specific [place] 1.017 Normal 1.010-1.030 Urine pH 6.0 Normal 5-9 Urine Urobilinogen Negative Negative Urine Ketones Negative Negative Urine Protein Negative Negative Urine Leukocytes 2+ Abnormal Negative Urine Blood Negative Negative Urine Nitrite Negative Negative Urine Bilirubin Negative Negative Urine Glucose Negative Negative Urine White Blood Cell Trace(0-5/hpf) Absent Urine Red Blood Cell Absent Absent Urine Bacteria Absent Absent Urine Squamous Epithelial Cell Present Abnormal Absent 1 [id number] 2 SEE RESULT BELOW Name: JOHAN LYNCH : [address]: Sherry De NP Acct: [id number] Unit: [id number] AGE: 18 Location: [facility] Re10/07/18 SEX: F Status: REG REF SPEC: [id number] MICHAEL: 10/07/18-[address]: Sherry De NP REQ: [id number] RECD: 10/07/188699 STATUS: COMP [facility] DR: Nick Nolasco MD _ SOURCE: URINE SPDESC: ORDERED: Urine Culture Procedure Result Reported Site Urine Culture Final 10/09/18- 1138 ML No growth of clinically significant organisms * ML - Main Lab . END OF REPORT DEPARTMENT OF PATHOLOGY, [address] [place] [address] Florentin Mehta M.D. Director [facility] # [id number] 3 Because ethnic data is not always [...] <15 (or dialysis) 4 Test Performed by: [facility] [address] [place] [id number] Florentin Mehta M.D. Director of Laboratory Procedures Description No Information Available Medical Devices Description No Information Available Encounters Type Date Location Provider Dx Diagnosis Office Visit 01/23/2019 [facility] Sherry De, N94.6 Dysmenorrhea, 10:15a [employer]PER[employer] unspecified K21.9 Gastro-esophageal reflux disease without esophagitis Office Visit 11/26/2018 8:00a [facility] Ania Jarquin N94.6 Dysmenorrhea, [facility] N.P. unspecified R10.31 Right lower quadrant pain Office Visit 10/24/2018 [facility] Sherry N83.201 Unspecified 2:30p NERIS De ovarian cyst, right side E28.8 Other ovarian dysfunction K21.0 Gastro-esophageal reflux disease with esophagitis Office 10/03/2018 [facility] Sherry K21.9 Gastro-esophageal Visit 9:00a NERIS De reflux disease without esophagitis R10.11 Right upper quadrant pain Assessments Date Code Description Provider 03/27/2019 M54.5 Low back pain Sunni Turk MD 03/27/2019 M25.512 Pain in left shoulder Sunni Turk MD 01/23/2019 N94.6 Dysmenorrhea, unspecified Sherry De NP 01/23/2019 K21.9 Gastro-esophageal reflux disease without Shrery De NP esophagitis 11/26/2018 N94.6 Dysmenorrhea, unspecified Ania Jarquin, N.P. 11/26/2018 R10.31 Right lower quadrant pain Ania Jarquin, N.P. 10/24/2018 N83.201 Unspecified ovarian cyst, right side Sherry De NP 10/24/2018 E28.8 Other ovarian dysfunction Sherry De NP 10/24/2018 K21.0 Gastro-esophageal reflux disease with esophagitis Sherry De NP 10/03/2018 K21.9 Gastro-esophageal reflux disease without Sherry De NP esophagitis 10/03/2018 R10.11 Right upper quadrant pain Sherry De NP Plan of Treatment Future Appointment(s):04/01/2019 3:40 pm - Ania Jarquin N.P. at [facility]07/31/2019 8:15 am - Sherry De NP at [facility] [id number]/27 /2019 - Sunni Turk, MDM54.5 Low back painNew Therapy:Physical TherapyFollow up: F/U for physical and PAP in 6 months ( that has to be under regular insurance) M25.512 Pain in left shoulder Functional Status Description No Information Available Mental Status Description No Information Available Referrals Refer to Reason for Referral Status Appt Date Jamaal Torres M.D. genetic counseling Sent [address] [place] [address] [phone] Jeyson Thompson MD Sent 11/05/2018 [address], [place] [address] [phone]
[2019-04-30 16:17] VITALS: BP 117/78
--- NOTE | 2019-04-30 16:42 | UC ---
Dental HPI - HPI Summary HPI Summary: 19 yo student treated about 3 weeks ago for dental infection, referred to dental surgeon. Pain resolve, returned yesterday with radiation to the left ear and low grade fever. She notified her dentist who advised her to come here for treatment and assessment. Xrays earlier this month showed evidence of infection. - History of Current Complaint Chief Complaint: UCDentalProblem Stated Complaint: EAR PAIN Time Seen by Provider: 04/30/19 16:23 Hx Obtained From: Patient Hx Last Menstrual Period: [id number] Onset/Duration: Sudden Onset, Lasting Days - 2 Severity: Moderate Pain Intensity: 9 Aggravating Factor(s): Cold Alleviating Factor(s): OTC Meds Related History: Previous Dental Care on Same Tooth - Allergies/Home Medications Allergies/Adverse Reactions: Allergies Allergy/AdvReac Type Severity Reaction Status Date / Time No Known Allergies Allergy Verified 04/30/19 16:21 Home Medications: Home Medications Acetaminophen TAB* [Tylenol TAB*] 500 mg PO Q4H PRN 04/30/19 [History Confirmed 04/30/19] PMH/Surg Hx/FS Hx/Imm Hx Previously Healthy: Yes - hx of iron deficiency. - Surgical History Surgical History: Yes Surgery Procedure, Year, and Place: 2004 T & A, CYST REMOVAL FORM EARS. [facility] cyst removed from her wrist 2017 - Family History Known Family History: Positive: Cardiac Disease, Hypertension - Social History Occupation: Student Lives: With Family Alcohol Use: None Substance Use Type: None Smoking Status (MU): Never Smoked Tobacco Have You Smoked in the Last Year: No - Immunization History Vaccination Up to Date: Yes Review of Systems All Other Systems Reviewed And Are Negative: Yes Constitutional: Positive: Fever, Fatigue Skin: Positive: Negative Eyes: Positive: Negative ENT: Positive: Dental Pain Respiratory: Positive: Negative Cardiovascular: Positive: Negative Neurological: Negative: Headache Psychological: Positive: Negative Is Patient Immunocompromised?: No Physical Exam Triage Information Reviewed: Yes Appearance: Well-Appearing, Pain Distress - mild to moderate Vital Signs: Initial Vital Signs Temp 99.2 F 04/30/19 16:11 Pulse 85 04/30/19 16:11 Resp 16 04/30/19 16:11 BP 117/78 04/30/19 16:11 Pulse Ox 99 04/30/19 16:11 Eyes: Positive: Conjunctiva Clear ENT: Positive: Pharynx normal, TMs normal Dental: Positive: Percussion Tenderness @ - 27. Negative: Gross Decay/Caries @ , Dental Fracture @, Abscess @, Cellulitis @, Cervical Lymphadenopathy Neck exam: Normal Respiratory: Positive: Lungs clear, Normal breath sounds Cardiovascular: Positive: RRR, No Murmur Images Dental: 1 - percussion tenderness. Dental Complaint Course/Dx - Course Course Of Treatment: Penicillin for treatment along with naproxen, has dental surgeon follow up pending. - Differential Dx/Diagnosis Differential Diagnosis/Dx: Dental Abscess, Dental Caries, Fractured Tooth Provider Diagnosis: Dental abscess Discharge ED - Sign-Out/Discharge Documenting (check all that apply): Patient Departure All imaging exams completed and their final reports reviewed: No Studies - Discharge Plan Condition: Good Disposition: HOME Prescriptions: Naproxen [Naproxen 500 mg tab] 500 mg PO BID #30 tablet. Penicillin VK 500 MG TAB(NF) [Penicillin VK 500 mg Tab] 500 mg PO QID #40 tab Patient Education Materials: Dental Abscess (ED) Referrals: No Primary Care Phys,NOPCP [Primary Care Provider] - Additional Instructions: Begin course of penicillin for recurrent infection. Naproxen has been prescribed for control of pain. You can use additional acetaminophen up to 3000mg daily for improved pain relief. Follow up with dental surgeon as arranged on 05/15/19. - Billing Disposition and Condition Condition: GOOD Disposition: Home
== END 2019-04-30 16:50 | disposition home or self-care (01) ==
LOC: UCEAST 15:19
DX: K04.7 Periapical abscess without sinus (principal); R53.83 Other fatigue
CPT/HCPCS: 99212; G0463

== ENCOUNTER 2019-05-03 18:48 | Emergency (ER) | payer SELFPAY ==
[2019-05-03 19:03] VITALS: BP 119/74
--- NOTE | 2019-05-03 19:39 | UC ---
Abdominal Pain Female HPI - HPI Summary HPI Summary: Patient's a 19-year-old female presents to urgent care stating she has a history of ovarian cyst. Patient states she is on oral poor control due to start her period today. Patient states she woke up tonight with some lower abdominal discomfort. Patient states she felt was related to her ovarian pain. Patient a she took some naproxen this morning without improvement. Patient states that the day pains become more intense. Patient states it feels like a heavy pressure with urinary frequency. Patient denies any vaginal itching but states she did have a little discharge yesterday. No odor. Patient states she called the ED this morning and they told her to get checked if she intended to have burning symptoms. Patient states tonight she ate dinner not better she vomited. Patient states she has some back pain so she decided to come here. No fevers or chills. Patient without a history of abdominal surgery. Patient states she is sexually active but has no concerns of STD or . Patient' s medications reviewed this visit. Patient does report she is on antibiotic for dental infection. She is scheduled to see an oral surgeon related to her wisdom teeth on the of this month. - History of Current Complaint Chief Complaint: UCGU Stated Complaint: BACK AND ABDOMINAL PAIN Time Seen by Provider: 05/03/19 19:11 Hx Obtained From: Patient, Medical Records Hx Last Menstrual Period: 04/08/19 ?: No Onset/Duration: Gradual Onset Severity Initially: Mild Severity Currently: Moderate Pain Intensity: 7 Allergies/Adverse Reactions: Allergies Allergy/AdvReac Type Severity Reaction Status Date / Time No Known Allergies Allergy Verified 05/03/19 19:03 PMH/Surg Hx/FS Hx/Imm Hx Previously Healthy: Yes Other GI/ History: ovarian cysts - Surgical History Surgical History: Yes Surgery Procedure, Year, and Place: 2004 T & A, CYST REMOVAL FORM EARS. [facility] cyst removed from her wrist 2017 - Family History Known Family History: Positive: Cardiac Disease, Hypertension, Non-Contributory - Social History Occupation: Unemployed Lives: With Family Alcohol Use: None Substance Use Type: None Smoking Status (MU): Never Smoked Tobacco Have You Smoked in the Last Year: No - Immunization History Vaccination Up to Date: Yes Review of Systems All Other Systems Reviewed And Are Negative: Yes Constitutional: Positive: Fatigue Skin: Positive: Negative Eyes: Positive: Negative ENT: Positive: Negative Respiratory: Positive: Negative Cardiovascular: Positive: Negative Gastrointestinal: Positive: Abdominal Pain, Vomiting - Once after dinner, Nausea Genitourinary: Positive: Vaginal/Penile Discharge. Negative: Hematuria, Frequency, Urgency, Vaginal/Penile Itching, Vaginal/Penile Pain, Vaginal/Penile Tenderness Motor: Positive: Negative Neurovascular: Positive: Negative Musculoskeletal: Positive: Negative Is Patient Immunocompromised?: No Physical Exam - Summary Physical Exam Summary: Vital Signs Reviewed: Yes A+Ox3, no distress Eyes: Conjunctiva Clear, OLEG. EOM intact and full ENT: Hearing grossly normal TM x 2 clear, mmoist, uvula midline, no exudate, no erythema Neck: Positive: Supple Respiratory: Positive: No respiratory distress, No accessory muscle use + CTA throughout no w/r Cardiovascular: RRR nl s1, s2 no m/r CBT <2 sec abd soft mild lower abdominal pain with direct palp. no guarding, no cva soft + BS : RN at bedside - no external lesions, pt with mild white thicker discharge concerning for yaginal yeast. no bleeding os closed,no cMT Musculoskeletal Exam: LEONG x 4 without difficulty Strength Intact, ROM Intact Neurological: Positive: Alert, + sensation throughout Psychological: Positive: Normal Response To examiner Skin: Positive: no rash, no ecchymosis Triage Information Reviewed: Yes Vital Signs: Initial Vital Signs Temp 99.3 F 05/03/19 18:56 Pulse 82 05/03/19 18:56 Resp 16 05/03/19 18:56 BP 119/74 05/03/19 18:56 Pulse Ox 100 05/03/19 18:56 Abd Pain Female Course/Dx - Course Course Of Treatment: Patient presents to urgent care for evaluation of lower abdominal pain and progressive throughout the day. Patient states she's been having urinary urgency and frequency. Patient denies any dysuria or hematuria. Patient states she feels the pain as a pressure. Patient thought initially related to ovarian cyst but it seemed more intense and she is experienced. Patient naproxen's morning but no further analgesia. Patient's age he has vaginal discharge yesterday but nothing today. Patient is sexually active and on control pills. Patient is also on oral antibiotic for dental infection. On exam vital signs are stable. Patient with mild lower abdominal pain. No guarding or rebound. Urine is negative for signs of infection and is negative. exam reveals: white discharge - suspicious for vaginal yeast. cultures were taken for both GC/CH as well as BC and gogo discuss with pt - nontoxic-appearing with a nonacute abdomen abdomen exam. We' ll give patient prescription for Diflucan. Patient does have a [employer] appointment scheduled for . Strict return precautions discussed with patient. Increased pain, fever, vomiting recommend she will immediately to the ED. Patient states understanding and comfort with plan. Patient appears well- hydrated and urine does not show ketones. I did discuss with patient that her pain could be hr representative of early appendicitis versus nontoxic. She goes home with very close monitoring. Patient comfortable in agreement. - Differential Dx/Diagnosis Provider Diagnosis: Vaginitis, Abdominal pain Discharge ED - Sign-Out/Discharge Documenting (check all that apply): Patient Departure All imaging exams completed and their final reports reviewed: No Studies - Discharge Plan Condition: Stable Disposition: HOME Prescriptions: Fluconazole [Diflucan 150 MG (NF)] 150 mg PO ONCE PRN #1 tab PRN Reason: vaginal yeast infection Patient Education Materials: Vaginitis (ED), Abdominal Pain (ED) Referrals: [facility] [Outside] No Primary Care Phys,NOPCP [Primary Care Provider] - Additional Instructions: -Take Diflucan tomorrow as prescribed. -As discussed, uterovaginal samples have been sent for additional testing. This includes gonorrhea, chlamydia, yeast infection for which she was treated for today, as well as bacterial vaginosis. These test take 3-4 days to come back. If he needed different treatment you receive a call from a care steam shovel runner. -For the first 6 hours, eat and drink clears (water, yesenia ponce, soup broth, jello, popsicles, Gatorade). If you tolerate this okay, add bland foods such as dry toast, scrambled eggs, crackers. Wait until you are feeling better for 24 hours before eating spicy food, acidic food, tomato based food, fried food. -Okay to alternate ibuprofen (Advil, Motrin) and Tylenol (acetaminophen) every 3 hours for pain or fever. Take with food. Do NOT take for more than 4-5 days. -The doctor that evaluated you thinks it is okay for your to go home. However, it is very important you monitor symptoms closely. If you develop increased pain, fever, vomiting, diarrhea, or any other concerns is recommended you go to the emergency room for further evaluation and treatment. As discussed with your today, this could represent a very early appendicitis however the doctor thinks it's okay physical closely monitoring her symptoms. Go to the emergency department if your symptoms are not improving. -Keep your appointment as scheduled this week, , with your [employer] provider -Contacted your doctor with any questions or concerns - Billing Disposition and Condition Condition: STABLE Disposition: Home
[2019-05-05 10:33] LABS: Chlamydia trachomatis NAA Negative (Negative); Neisseria gonorrhoeae (GC) NAA Negative (Negative)
== END 2019-05-03 20:10 | disposition home or self-care (01) ==
LOC: UCEAST 18:48
DX: N76.0 Acute vaginitis (principal); R10.9 Unspecified abdominal pain; M54.9 Dorsalgia, unspecified
CPT/HCPCS: 81003; 84702; 87480; 87491; 87510; 87591; 87661; 99212; G0463

== ENCOUNTER 2019-06-20 13:27 | Emergency (ER) | payer MEDICAID, OTHER ==
[2019-06-20 13:54] VITALS: BP 103/62
--- NOTE | 2019-06-20 14:21 | UC ---
Abdominal Pain Female HPI - HPI Summary HPI Summary: 3 days of abdomen and not rlq pain with nausea/vomiting, and fever on day - History of Current Complaint Chief Complaint: UCAbdominalPain Stated Complaint: ABD PAIN Time Seen by Provider: 06/20/19 14:13 Hx Obtained From: Patient Hx Last Menstrual Period: 06/01/19 ?: No Onset/Duration: Sudden Onset, Lasting Days - 3, Still Present Timing: Constant Pain Intensity: 6 Pain Scale Used: 0-10 Numeric Location: Discrete At: RLQ, Epigastric Radiates: No Character: Unable to describe Aggravating Factor(s): Food Alleviating Factor(s): Nothing Associated Signs and Symptoms: Positive: Nausea, Vomiting Allergies/Adverse Reactions: Allergies Allergy/AdvReac Type Severity Reaction Status Date / Time No Known Allergies Allergy Verified 06/20/19 15:03 PMH/Surg Hx/FS Hx/Imm Hx Previously Healthy: Yes - Surgical History Surgical History: Yes Surgery Procedure, Year, and Place: 2005 T & A, CYST REMOVAL FORM EARS. [facility] cyst removed from her wrist 2017 - Family History Known Family History: Positive: Cardiac Disease, Hypertension, Non-Contributory - Social History Occupation: Employed Full-time Lives: With Family Alcohol Use: None Substance Use Type: None Smoking Status (MU): Never Smoked Tobacco Have You Smoked in the Last Year: No - Immunization History Vaccination Up to Date: Yes Review of Systems All Other Systems Reviewed And Are Negative: Yes Constitutional: Positive: Fever Skin: Positive: Negative Eyes: Positive: Negative ENT: Positive: Negative Respiratory: Positive: Negative Cardiovascular: Positive: Negative Gastrointestinal: Positive: Abdominal Pain, Vomiting, Nausea Genitourinary: Positive: Negative Motor: Positive: Negative Neurovascular: Positive: Negative Musculoskeletal: Positive: Negative Neurological: Positive: Negative Psychological: Positive: Negative Is Patient Immunocompromised?: No Physical Exam Triage Information Reviewed: Yes Appearance: Well-Appearing, No Pain Distress, Well-Nourished Vital Signs: Initial Vital Signs Temp 97.4 F 06/20/19 13:39 Pulse 91 06/20/19 13:39 Resp 17 06/20/19 13:39 BP 103/62 06/20/19 13:39 Pulse Ox 100 06/20/19 13:39 Vital Signs Reviewed: Yes Eye Exam: Normal Eyes: Positive: Conjunctiva Clear ENT Exam: Normal ENT: Positive: Normal ENT inspection, Hearing grossly normal. Negative: Trismus , Muffled voice, Hoarse voice Dental Exam: Normal Neck exam: Normal Neck: Positive: Supple, Nontender Respiratory Exam: Normal Respiratory: Positive: Chest non-tender, Lungs clear, Normal breath sounds, No respiratory distress, No accessory muscle use Cardiovascular Exam: Normal Cardiovascular: Positive: RRR, No Murmur, Pulses Normal, Brisk Capillary Refill Abdominal Exam: Other Abdomen Description: Positive: No Organomegaly, Soft, McBurney's Point Tenderness. Negative: CVA Tenderness (R), CVA Tenderness (L) Bowel Sounds: Positive: Present Musculoskeletal Exam: Normal Musculoskeletal: Positive: Strength Intact, ROM Intact, No Edema Neurological Exam: Normal Neurological: Positive: Alert, Muscle Tone Normal Psychological Exam: Normal Skin Exam: Normal Abd Pain Female Course/Dx - Course Course Of Treatment: npo to ed for further assessment - Differential Dx/Diagnosis Provider Diagnosis: Pain in the abdomen Discharge ED - Sign-Out/Discharge Documenting (check all that apply): Patient Departure All imaging exams completed and their final reports reviewed: No Studies - Discharge Plan Condition: Stable Disposition: HOME-RECOMMEND TO ED Patient Education Materials: Acute Abdominal Pain (ED) Referrals: No Primary Care Phys,NOPCP [Primary Care Provider] - Additional Instructions: Please go to emergency department for further evaluation of Right lower quadrant pain fever and vomiting - Billing Disposition and Condition Condition: STABLE Disposition: Home-Recommend to ED
== END 2019-06-20 14:25 | disposition home health service (06) ==
LOC: UCEAST 13:27
DX: R10.9 Unspecified abdominal pain (principal); R50.9 Fever, unspecified; R11.2 Nausea with vomiting, unspecified
CPT/HCPCS: 99212; G0463

== ENCOUNTER 2019-06-20 14:57 | Emergency (ER) | payer MEDICAID ==
--- NOTE | 2019-06-20 15:12 | ED ---
Abdominal Pain/Female - HPI Summary HPI Summary: This pt is a 19 y/o [facility]. 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 Pt notes she went to [facility] and 3-5 minutes later she began vomiting. Per sister pt has had 20 episodes of emesis. Pt has not vomited today , the last time was last night. Pt tried to eat last night but was just dry heaving and vomiting. Additionally pt notes fever. She went to Urgent Care this morning because she developed abd pain. Pt notes her abd pain was located in the center of her abd until the provider at palpated her RLQ. Now she c/o RLQ abd pain. Her abd pain is aggravated with movement. Currently she c/o nausea. She denies decreased appetite and actually notes she is hungry. Denies diarrhea, constipation, dysuria, hematuria. Pt notes feeling better today compared to yesterday. PMHx: gluten disorder. LMP: June 01. NKDA. Medications reviewed. Allergies noted. - History of Current Complaint Chief Complaint: EDAbdPain Stated Complaint: ABD PAIN PER PT Time Seen by Provider: 06/20/19 15:04 Hx Obtained From: Patient Hx Last Menstrual Period: 06/01/19 Onset/Duration: Lasting Days, Still Present Timing: Days Severity Currently: Moderate Pain Intensity: 6 Pain Scale Used: 0-10 Numeric Location: Discrete At: RLQ Radiates: No Aggravating Factor(s): Nothing Alleviating Factor(s): Nothing Associated Signs and Symptoms: Positive: Fever, Nausea, Vomiting. Negative: Constipation, Urinary Symptoms, Diarrhea Allergies/Adverse Reactions: Allergies Allergy/AdvReac Type Severity Reaction Status Date / Time No Known Allergies Allergy Verified 06/20/19 15:03 PMH/Surg Hx/FS Hx/Imm Hx Endocrine/Hematology History: Denies: Hx Diabetes, Hx Thyroid Disease Cardiovascular History: Denies: Hx Hypertension, Hx Pacemaker/ICD Respiratory History: Denies: Hx Asthma, Hx Chronic Obstructive Pulmonary Disease (COPD) GI History: Denies: Hx Ulcer History: Denies: Hx Renal Disease Sensory History: Reports: Hx Contacts or Glasses - GLASSES Denies: Hx Hearing Aid Opthamlomology History: Reports: Hx Contacts or Glasses - GLASSES Psychiatric History: Reports: Hx Anxiety - tends to get anxious with "overload" no meds Denies: Hx Panic Disorder - Surgical History Surgical History: Yes Surgery Procedure, Year, and Place: 2005 T & A, CYST REMOVAL FORM EARS. [facility] cyst removed from her left wrist 2018 Hx Anesthesia Reactions: No Infectious Disease History: No Infectious Disease History: Denies: Hx Clostridium Difficile, Hx Hepatitis, Hx Human Immunodeficiency Virus (HIV), Hx of Known/Suspected MRSA, Hx Shingles, Hx Tuberculosis, Hx Known/ Suspected VRE, Hx Known/Suspected VRSA, History Other Infectious Disease, Traveled Outside the [place] in Last 30 Days - Family History Known Family History: Positive: Cardiac Disease, Hypertension - Social History Alcohol Use: None Hx Substance Use: No Substance Use Type: Reports: None Hx Tobacco Use: No Smoking Status (MU): Never Smoked Tobacco Have You Smoked in the Last Year: No Review of Systems Positive: Fever ENT: Negative Cardiovascular: Negative Positive: Abdominal Pain, Vomiting, Nausea. Negative: Diarrhea, Other - NEGATIVE: constipation Negative: dysuria, hematuria Skin: Negative Neurological: Negative All Other Systems Reviewed And Are Negative: Yes Physical Exam - Summary Physical Exam Summary: Constitutional: Well-developed, Well-nourished, Alert. (-) Distressed Skin: Warm, Dry HENT: Normocephalic; Atraumatic Eyes: Conjunctiva normal Neck: Musculoskeletal ROM normal neck. (-) JVD, (-) Stridor, (-) Tracheal deviation Cardio: Rhythm regular, rate normal, Heart sounds normal; Intact distal pulses; The pedal pulses are 2+ and symmetric. Radial pulses are 2+ and symmetric. (-) Murmur Pulmonary/Chest wall: Effort normal. (-) Respiratory distress, (-) Wheezes, (-) Rales Abd: Soft, mild right lower quadrant tenderness, negative Rovsing's sign, negative obturator sign, no pain with jumping. Musculoskeletal: (-) Edema Lymph: (-) Cervical adenopathy Neuro: Alert, Oriented x3 Psych: Mood and affect Normal Triage Information Reviewed: Yes Vital Signs On Initial Exam: Initial Vitals Temp Pulse Resp BP Pulse Ox 97.7 F 88 16 115/78 99 06/20/19 15:01 06/20/19 15:01 06/20/19 15:01 06/20/19 15:01 06/20/19 15:01 Vital Signs Reviewed: Yes Procedures - Sedation Patient Received Moderate/Deep Sedation with Procedure: No Diagnostics - Vital Signs Vital Signs Temp Pulse Resp BP Pulse Ox 06/20/19 15:01 97.7 F 88 16 115/78 99 - Laboratory Result Diagrams: 06/20/19 15:19 06/20/19 15:19 Lab Statement: Any lab studies that have been ordered have been reviewed, and results considered in the medical decision making process. Re-Evaluation - Re-Evaluation First Eval Re-Evaluation Time: 16:43 Change: Improved Comment: Patient is feeling better. She will be discharged home. Abdominal Pain Fem Course/Dx - Course Course Of Treatment: Patient is here with vomiting that has stopped and right lower quadrant pain only when she has palpation at that spot. Patient had blood work performed which showed no leukocytosis and a slightly elevated CRP. Patient is not . Patient has an appetite, is feeling better than yesterday, has no pain with jumping, no fever today. The symptoms all point to this not being appendicitis. Patient was feeling better by the time of discharge. Patient was discharged with Bentyl and Zofran. Discussion was had with the patient about why don't think this is appendicitis and patient was comfortable with not getting a CT scan and returning if she gets worse. - Diagnoses Provider Diagnoses: RLQ abdominal pain Discharge ED - Sign-Out/Discharge Documenting (check all that apply): Patient Departure - Discharge home - Discharge Plan Condition: Stable Disposition: HOME Prescriptions: Dicyclomine CAP* [Bentyl CAP*] 10 mg PO TID PRN #20 cap PRN Reason: cramping Ondansetron TAB* [Zofran 4 MG Tab*] 4 mg PO Q8HR PRN #12 tab PRN Reason: Vomiting Patient Education Materials: Abdominal Pain (ED) Referrals: [facility] [Outside] Additional Instructions: Take your medications as prescribed. Stay hydrated with Pedialyte. Take Ibuprofen and Tylenol for your pain. PLEASE RETURN TO EMERGENCY DEPARTMENT IF YOU HAVE WORSENING ABDOMINAL PAIN, FEVER, OR ANY OTHER CONCERNING SYMPTOMS. Please follow up with your primary care physician. Please make all follow-ups in 1-3 days unless I advise you otherwise. - Billing Disposition and Condition Condition: STABLE Disposition: Home - Attestation Statements Document Initiated by Scribe: Yes Documenting Scribe: Rosette Anthony Provider For Whom Scribe is Documenting (Include Credential): J Carlos Valdovinos MD Scribe Attestation: I, Rosette Anthony, scribed for J Carlos Valdovinos MD on 06/20/19 at 1703. Scribe Documentation Reviewed: Yes Provider Attestation: The documentation as recorded by the scribe, Rosette Anthony accurately reflects the service I personally performed and the decisions made by me, J Carlos Valdovinos MD Status of Scribe Document: Viewed
[2019-06-20] MEDS ORDERED: NS 0.9% 1000 ML** 1,000 ML IV ONE (15:14)
[2019-06-20] MEDS ORDERED: Ondansetron INJ* 2 MG/ML VIAL IV ONE (15:14)
[2019-06-20 15:33] LABS: ABS Eosinophils 0.3 10^3/ul (0-0.6); ABS Lymphocytes 3.1 10^3/ul (1.0-4.8); ABS Monocytes 0.6 10^3/ul (0-0.8); ABS Neutrophils 6.1 10^3/ul (1.5-7.7); Eosinophil % 2.9 %; Hematocrit 38 % (35-47); Hemoglobin 12.8 g/dL (12.0-16.0); Lymphocyte % 30.4 %; Mean Corpuscular HGB Conc 34 g/dL (31-36); Mean Corpuscular Hemoglobin 30 pg (27-31); Mean Corpuscular Volume 88 fL (80-97); Mean Platelet Volume 7.4 fL (7.4-10.4); Platelet Count 368 10^3/uL (150-450); Red Cell Distribution Width 13 % (10-15); White Blood Count 10.1 10^3/uL (3.5-10.8)
[2019-06-20 15:49] LABS: ALT 9 U/L (7-52); AST 13 U/L (13-39); Albumin 3.8 g/dL (3.2-5.2); Albumin/Globulin Ratio 1.2 (1-3); Alkaline Phosphatase 63 U/L (34-104); Anion Gap 6 mmol/L (2-11); BUN/Creatinine Ratio 14.3 (8-20); Blood Urea Nitrogen 13 mg/dL (6-24); C Reactive Protein 21.29 mg/L (<8.01); CO2 Carbon Dioxide 25 mmol/L (22-32); Calcium 8.7 mg/dL (8.6-10.3); Chloride 105 mmol/L (101-111); EGFR African American 94.4 (>60); Globulin 3.1 g/dL (2-4); Glucose 88 mg/dL (70-100); Potassium 3.9 mmol/L (3.5-5.0); Sodium 136 mmol/L (135-145); Total Protein 6.9 g/dL (6.4-8.9)
[2019-06-20] MEDS: Ketorolac INJ* 30 MG/ML 1 ML VIAL IV PUSH ONE ×2 (15:53→16:47)
[2019-06-20 15:55] LABS: HCG Pregnancy < 0.60 mIU/mL
[2019-06-20] MEDS ORDERED: Ondansetron TAB* 4 MG PO ONE (16:52)
[2019-06-20 17:04] VITALS: BP 109/64
== END 2019-06-20 17:00 | disposition home or self-care (01) ==
LOC: ED 14:57
DX: R10.31 Right lower quadrant pain (principal); R50.9 Fever, unspecified; R11.2 Nausea with vomiting, unspecified; F41.9 Anxiety disorder, unspecified
CPT/HCPCS: 36415; 80053; 84702; 85025; 86140; 96361; 96374; 96375; 99283; A9270-GY; J1885; J2405

== ENCOUNTER 2019-06-22 19:00 | Observation (INO) | payer MEDICAID ==
--- NOTE | 2019-06-22 19:17 | ED ---
Abdominal Pain/Female - HPI Summary HPI Summary: This patient is a 19 year old female brought in by EMS presenting to [facility] with a chief complaint of RLQ abdominal pain. 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 She has had the Abdominal pain, N/V since , where she came to the ED and was diagnosed with inflammation. She states her mom is sick at home but with URI. She rates her pain 8/10 in severity. She states she has been urinating less frequently. Pt denies any fever, chills, erythema of eyes, sore throat, CP, SOB, cough, dysuria, hematuria, myalgia, edema, or rash - History of Current Complaint Chief Complaint: EDAbdPain Stated Complaint: ABD PAIN PER EMS Time Seen by Provider: 06/22/19 19:09 Hx Obtained From: Patient Hx Last Menstrual Period: 06/01/19 Pain Intensity: 8 Pain Scale Used: 0-10 Numeric Location: Discrete At: RLQ Allergies/Adverse Reactions: Allergies Allergy/AdvReac Type Severity Reaction Status Date / Time No Known Allergies Allergy Verified 06/20/19 15:03 Home Medications: Home Medications Cholecalciferol (Vitamin D3) [Vitamin D3] 2,000 unit PO DAILY 06/22/19 [History Confirmed 06/22/19] PMH/Surg Hx/FS Hx/Imm Hx Endocrine/Hematology History: Denies: Hx Diabetes, Hx Thyroid Disease Cardiovascular History: Denies: Hx Hypertension, Hx Pacemaker/ICD Respiratory History: Denies: Hx Asthma, Hx Chronic Obstructive Pulmonary Disease (COPD) GI History: Denies: Hx Ulcer History: Denies: Hx Renal Disease Sensory History: Reports: Hx Contacts or Glasses - GLASSES Denies: Hx Hearing Aid Opthamlomology History: Reports: Hx Contacts or Glasses - GLASSES Psychiatric History: Reports: Hx Anxiety - tends to get anxious with "overload" no meds Denies: Hx Panic Disorder - Surgical History Surgery Procedure, Year, and Place: 2004 T & A, CYST REMOVAL FORM EARS. [facility] cyst removed from her left wrist 2017 Hx Anesthesia Reactions: No Infectious Disease History: No Infectious Disease History: Denies: Hx Clostridium Difficile, Hx Hepatitis, Hx Human Immunodeficiency Virus (HIV), Hx of Known/Suspected MRSA, Hx Shingles, Hx Tuberculosis, Hx Known/ Suspected VRE, Hx Known/Suspected VRSA, History Other Infectious Disease, Traveled Outside the [place] in Last 30 Days - Family History Known Family History: Positive: Cardiac Disease, Hypertension - Social History Alcohol Use: None Hx Substance Use: No Substance Use Type: Reports: None Hx Tobacco Use: No Smoking Status (MU): Never Smoked Tobacco Have You Smoked in the Last Year: No Review of Systems Negative: Fever, Chills Positive: Blurred Vision. Negative: Erythema Negative: Sore Throat Negative: Chest Pain Negative: Shortness Of Breath, Cough Positive: Abdominal Pain, Vomiting, Nausea Positive: frequency - Less frequent. Negative: dysuria, hematuria Negative: Myalgia, Edema Negative: Rash Neurological: Other - Dizziness Positive: Syncope All Other Systems Reviewed And Are Negative: No Physical Exam - Summary Physical Exam Summary: Constitutional: Well-developed, Well-nourished, Alert. (-) Distressed Skin: Warm, Dry HENT: Normocephalic; Atraumatic Eyes: Conjunctiva normal Neck: Musculoskeletal ROM normal neck. (-) JVD, (-) Stridor, (-) Tracheal deviation Cardio: Rhythm regular, rate normal, Heart sounds normal; Intact distal pulses; The pedal pulses are 2+ and symmetric. Radial pulses are 2+ and symmetric. (-) Murmur Pulmonary/Chest wall: Effort normal. (-) Respiratory distress, (-) Wheezes, (-) Rales Abd: Soft, RLQ tenderness, (-) Distension, (-) Guarding, (-) Rebound Musculoskeletal: (-) Edema Lymph: (-) Cervical adenopathy Neuro: Alert, Oriented x3 Psych: Mood and affect Normal Triage Information Reviewed: Yes Vital Signs On Initial Exam: Initial Vitals Temp Pulse Resp BP Pulse Ox 98.4 F 114 20 135/79 100 06/22/19 19:05 06/22/19 19:05 06/22/19 19:05 06/22/19 19:05 06/22/19 19:05 Vital Signs Reviewed: Yes Procedures - Sedation Patient Received Moderate/Deep Sedation with Procedure: No Diagnostics - Vital Signs Vital Signs Temp Pulse Resp BP Pulse Ox 06/22/19 19:05 98.4 F 114 20 135/79 100 - Laboratory Result Diagrams: 06/22/19 19:27 06/22/19 19:27 Lab Statement: Any lab studies that have been ordered have been reviewed, and results considered in the medical decision making process. - Ultrasound No standard instances Ultrasound Interpretation Completed By: Radiologist Summary of Ultrasound Findings: Appendix US: Appendix is not seen. Appendicitis is not excluded. ED Provider has reviewed this report. - EKG 1931 Cardiac Rate: Tachycardia - 105 BPM EKG Rhythm: Sinus Tachycardia Summary of EKG Findings: No STEMI. ED Physician has reviewed this report. Abdominal Pain Fem Course/Dx - Course Course Of Treatment: This patient is a 19 year old female brought in by EMS presenting to [facility] with a chief complaint of abdominal pain. Labs reveal MPV 7.0, AST 12 L, CRP 22.96 H, Ur Leukocyte Esterase 1+A, Urine WBC 1+A, Ur Squamous epth Cells Present A. Patient to be signed out to Dr. Mathur at shift change [address] Abd/Pel. - Diagnoses Provider Diagnoses: RLQ abdominal pain Discharge ED - Sign-Out/Discharge Documenting (check all that apply): Sign-Out Patient Signing out patient TO: Jayden Mathur - Pend CT Abd/Pel at shift change 2200 - Discharge Plan Condition: Stable Referrals: No Primary Care Phys,NOPCP [Primary Care Provider] - - Attestation Statements Document Initiated by Scribe: Yes Documenting Scribe: Jorge Vergara Provider For Whom Scribe is Documenting (Include Credential): Sam Cordova MD Scribe Attestation: Jorge Lerma, scribed for Sam Cordova MD on 06/22/19 at 2136. Status of Scribe Document: Ready
[2019-06-22] MEDS ORDERED: NS 0.9% 1000 ML** 2,000 ML IV ONE (19:20)
[2019-06-22] MEDS ORDERED: Ondansetron INJ* 2 MG/ML VIAL IV ONE (19:20)
[2019-06-22 19:34] LABS: ABS Eosinophils 0.2 10^3/ul (0-0.6); ABS Lymphocytes 2.5 10^3/ul (1.0-4.8); ABS Monocytes 0.7 10^3/ul (0-0.8); ABS Neutrophils 6.1 10^3/ul (1.5-7.7); Eosinophil % 2.1 %; Hematocrit 36 % (35-47); Hemoglobin 12.2 g/dL (12.0-16.0); Lymphocyte % 26.4 %; Mean Corpuscular HGB Conc 34 g/dL (31-36); Mean Corpuscular Hemoglobin 30 pg (27-31); Mean Corpuscular Volume 88 fL (80-97); Platelet Count 359 10^3/uL (150-450); Red Blood Count 4.12 10^6 /uL (3.70-4.87); Red Cell Distribution Width 13 % (10-15); White Blood Count 9.5 10^3/uL (3.5-10.8)
[2019-06-22 19:50] LABS: Albumin 3.7 g/dL (3.2-5.2); Albumin/Globulin Ratio 1.2 (1-3); BUN/Creatinine Ratio 13.7 (8-20); C Reactive Protein 22.96 mg/L (<8.01); Calcium 9.1 mg/dL (8.6-10.3); EGFR African American 89.9 (>60); EGFR Non-African American 74.3 (>60); Globulin 3.1 g/dL (2-4); Potassium 4.1 mmol/L (3.5-5.0); Total Bilirubin 0.2 mg/dL (0.2-1.0); Total Protein 6.8 g/dL (6.4-8.9)
[2019-06-22 19:52] LABS: Urine Appearance Cloudy; Urine Bilirubin Negative (Negative); Urine Blood Negative (Negative); Urine Color Yellow; Urine Glucose Negative (Negative); Urine Ketones Negative (Negative); Urine Nitrite Negative (Negative); Urine Protein Negative (Negative); Urine Specific Gravity 1.015 (1.010-1.030); Urine Urobilinogen Negative (Negative)
[2019-06-22 20:02] LABS: Urine Bacteria Absent (Absent); Urine Red Blood Cell Trace(0-2/hpf) (Absent); Urine Squamous Epithelial Cell Present (Absent); Urine White Blood Cell 1+(6-10/hpf) (Absent)
[2019-06-22] MEDS ORDERED: Iohexol 300* (CONTRAST) 10 ML SDV IV ONE (20:29)
[2019-06-22] MEDS ORDERED: Morphine 4 MG/ML VIAL (1 ml) 4 MG/ML VIAL IV ONE (21:55)
--- NOTE | 2019-06-22 22:15 | ED ---
Progress - Progress Note Progress Note: Patient is received as a sign out from Dr. Cordova to Dr. Mathur at [address] ABD/PEL. CT ABD/PEL IMPRESSION: Negative CT abdomen/pelvis. There is partial visualization of a normal appendix adjacent to the cecal tip. The entire appendix is not completely delineated. THIS REPORT WAS REVIEWED BY ED PHYSICIAN. US pelvic/transvaginal to be obtained. 2357 - Patient's case discussed with Dr. Graham, Dr. Graham will evaluate the patient in ED. PELVIC/TRANSVAGINAL US IMPRESSION: Negative pelvic sonogram. No right ovarian blood flow is documented. THIS REPORT WAS REVIEWED BY ED PHYSICIAN. 2 - Patient's case was discussed with Dr. Mas, she will come evaluate the patient in ED. After evaluations, it was determined that the patient should be admitted to hospitalist. 40 - Patient's case was discussed with Dr. Gamboa, Dr. Gamboa accepts the patient for admission. Admit orders placed at this time. Course/Dx - Course Course Of Treatment: Patient is received as a sign out from Dr. Cordova to Dr. Mathur at 2200 06/22/[address] ABD/PEL. CT ABD/PEL IMPRESSION : Negative CT abdomen/pelvis. There is partial visualization of a normal appendix. adjacent to the cecal tip. The entire appendix is not completely delineated. THIS REPORT WAS REVIEWED BY ED PHYSICIAN. US pelvic/transvaginal to be obtained. 2357 - Patient's case discussed with Dr. Graham, Dr. Graham will evaluate the patient in ED. PELVIC/TRANSVAGINAL US IMPRESSION: Negative pelvic sonogram. No right ovarian blood flow is documented. THIS REPORT WAS REVIEWED BY ED PHYSICIAN. 2 - Patient's case was discussed with Dr. Mas, she will come evaluate the patient in ED. After evaluations, it was determined that the patient should be admitted to hospitalist. 40 - Patient' s case was discussed with Dr. Cooper Noonan accepts the patient for admission. Admit orders placed at this time. - Diagnoses Provider Diagnoses: RLQ abdominal pain - Provider Notifications Discussed Care Of Patient With: Joseph Graham Time Discussed With Above Provider: 23:58 Instructed by Provider To: Other - 2357 - Patient's case discussed with Dr. Graham, Dr. Graham will evaluate the patient in ED. 0003 - Patient's case was discussed with Dr. Mas, she will come evaluate the patient in ED. 0041 - Patient's case was discussed with Dr. Gamboa, Dr. Gamboa accepts the patient for admission. Admit orders placed at this time. Discharge ED - Sign-Out/Discharge Documenting (check all that apply): Patient Departure - admit - Discharge Plan Condition: Stable Disposition: ADMITTED TO [facility] - Billing Disposition and Condition Condition: STABLE Disposition: Admitted to [facility] - Attestation Statements Document Initiated by Laurence: Yes Documenting Scribe: JOHN ARAUJO Provider For Whom Laurence is Documenting (Include Credential): FRANCISCO MATHUR MD Scribe Attestation: IJOHN, scribed for FRANCISCO MATHUR MD on 06/27/19 at 0633. Scribe Documentation Reviewed: Yes Provider Attestation: The documentation as recorded by the JOHN dallas accurately reflects the service I personally performed and the decisions made by me, FRANCISCO MATHUR MD Status of Scribe Document: Viewed
[2019-06-23] MEDS ORDERED: Ondansetron INJ* 2 MG/ML VIAL IV PRN (00:41)
[2019-06-23] MEDS ORDERED: NS 0.9% 1000 ML** 1,000 ML IV SCH (00:45)
[2019-06-23] MEDS ORDERED: Dicyclomine CAP* 10 MG PO PRN (00:48)
--- NOTE | 2019-06-23 01:22 | CONS ---
CC: [facility] SURGICAL CONSULTATION REPORT: DATE OF EVALUATION: 06/23/19, in the emergency room. PRIMARY CARE PHYSICIAN: None. HISTORY OF PRESENT ILLNESS: I was contacted by the emergency room to evaluate Ms. Hernandez, a 19-yea r-old female who presented by ambulance with complaints of persistent nausea and vomiting as well as lower abdominal pain. She was seen in urgent care 2 days ago with persistent nausea and vomiting. No significant workup wa s performed and patient was discharged, told to return if the pain returns. The weekend went well and patient was doing overall well until earlier today. The pain is mostly in the right lower quadrant. She has no appetite. Her last vomit was prior to pr esenting to the hospital. No sick contacts. Her mother has dealt with a respiratory infection but n ot a GI infection. The patient denies any similar symptoms in the past. No abdominal surgeries. No medical problems. She only takes her control. She has no known drug allergies. REVIEW OF SYSTEMS: No previous endoscopies. She does not see a primary care doctor. She is sexuall y active. She is not . PHYSICAL EXAM: She is afebrile. Blood pressure 117/85, heart rate of 100. Alert and oriented x3, i n no distress. Head is normocephalic, atraumatic. Sclerae anicteric. Mucous membranes are dry. Ab domen is soft, nondistended, tender in the right lower quadrant with minimal guarding. Negative rebo und. The patient describes the pain radiates to the midline. Vaginal exam not performed. Extremitie s: Within normal limits. Negative psoas sign. Negative Rovsing sign. DIAGNOSTIC STUDIES/LAB DATA: Labs reviewed. Normal white count. Chemistries shows mildly elevated CRP of 23. Reference range is under 8. LFTs within normal limits including lipase. The patient underwent a CAT scan of the abdomen and pelvis, these images as well as report reviewed, shows no inflammation in the right lower quadrant. This was done with IV contrast and oral contrast. There is partial visualization of the appendix but could not see the full appendix. No free fluid. No free air. The patient underwent transvaginal ultrasound as well and there was minimal fluid in the cul-de-sac. There was a question of no ovarian blood flow on the right documented. IMPRESSION: Nausea and vomiting, right lower quadrant pain with CAT scan shows no inflammation and n egative white count. 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 status, IV fluids and r eevaluation in the morning. [id number]/[facility] #: [id number]
--- NOTE | 2019-06-23 01:53 | CONSULT ---
Consult Consult: CC: RLQ pain HPI: Pt c/o RLQ pain. She says it first started on after vomiting "like 20 times" after eating out. She says it felt like someone was grabbing her insides and twisting. She also reports that she had a 102 temperature that day. The pain persisted for several days so she went to the ED on saturday. Initial w/u was normal and the pain was improving so she was sent home. Over the past 2 days she says she didn't eat much and has felt chills but no fever. Pain was almost gone. Then today she drank a chocolate milk and after wards started vomiting again and the pain came back even stronger than before so she came back to the ED. She says the pain is constant once it comes. It sort of radiates into her back but not into her legs. It is worse with movement or walking and better with rest. She reports normal BMs, urination. She says she had a similar pain to this several months ago but it wasn't as bad. Meds: OCPs, Vit C, iron NKDA ROS: Negative other than sxms mentioned above PMH: anemia PSH: tonsils, cyst removal [employer] hx: no pregnancies, on OCPs Soc Hx: denies tobacco, alcohol or illicit drug use Labs all wnl except a mildly elevated CRP @23 Sono: pelvic organs all normal but right ovary with no observable blood flow. Right ovary only 1.5x2.7x0.9cm. CT scan wnl but appendix not fully visualized PE Gen: NAD, resting in bed Abd: Soft, ND, mild tenderness to palpation in RLQ, slight tenderness on right side with palpation of left side. Mild tenderness suprapubically. No rebound or guarding. Ext: neg edema A/P: 19yo F with RLQ, nausea and vomiting and absent bloodflow to R ovary but no other signs of ovarian torsion. Due to small size of the ovary I think ovarian torsion is unlikely but a repeat sono could be ordered in the am to re- evaluate the ovary. Please contact with further questions. Thank-you for this consult.
--- NOTE | 2019-06-23 02:03 | HP ---
HISTORY AND PHYSICAL: DATE OF ADMISSION: 06/23/19 PRIMARY CARE PROVIDER: None. CHIEF COMPLAINT: Right lower quadrant abdominal pain. HISTORY OF PRESENT ILLNESS: Ms. Hernandez is a 19-year-old female who has no past medical history, who presents to the emergency room with complaints of right lower quadrant abdominal pain. She states the pain began this past , 06/18/19. She ultimately was seen in the emergency room on 06/20/19 where blood work was obtained and found to be normal and she was discharged home. The patient had been continuing to have intermittent abdominal pain off and on since the onset on the 06/18/19; however, while she was out shopping at [employer] on 06/22/19, she developed severe right lower quadrant abdominal pain. She vomited. She felt near syncopal when the pain began. She described a feeling of her vision going and lightheadedness. She was ultimately brought to the emergency room by ambulance. The patient states over the last several days, she has had chills. She states that she had a fever of 102 this past . She does not have any diarrhea. Her last bowel movement was this past Saturday. She states it was black; however, she had been taking Pepto-Bismol. 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 She does note that in the ambulance ride to the hospital going over bumps did slightly exacerbate her pain. PAST MEDICAL HISTORY: None. PAST SURGICAL HISTORY: 1. Tonsillectomy. 2. Cyst removal from behind the left ear. 3. Left wrist cyst removal. MEDICATIONS: 1. Zofran 4 mg p.o. q.8 hours p.r.n. nausea. 2. Bentyl 10 mg p.o. t.i.d. p.r.n. cramping. 3. Vitamin D 2000 units p.o. daily. 4. Juleber 1 tab p.o. at bedtime. 5. Ferrous sulfate 325 mg p.o. daily. ALLERGIES: No known drug allergies. FAMILY HISTORY: Mom is living, she is 48, she has a history of breast and ovarian cancer. Dad's health is unknown. SOCIAL HISTORY: She does not smoke, she does not drink alcohol. She denies any recreational drugs. 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 She is not . Her boyfriend is here in the emergency room with her. She does not have any children. Her health care proxy will be her mom. REVIEW OF SYSTEMS: A complete 11 systems review of systems was obtained. Pertinent positives and negatives are as per HPI. In addition, the patient does admit to having intermittent anxiety. The rest of the review of systems is negative. PHYSICAL EXAMINATION GENERAL: The patient is a well-developed, young female seen lying in the stretcher in no acute distress. VITAL SIGNS: Blood pressure 117/85, pulse 102, respirations 20, temp 98.4, O2 sat 98% on room air. HEENT: Pupils are equal. Extraocular muscles are intact. Oropharynx is clear and moist. PULMONARY: Lungs are clear to auscultation bilaterally. CARDIAC: Normal S1 and S2. Heart rate is mildly tachycardic. It is regular. There is no lower extremity edema. ABDOMEN: Bowel sounds are present. Abdomen is soft and nondistended. She winces to minimal palpation to the right lower quadrant. There is no abdominal pain on palpation of any of the other quadrants. MUSCULOSKELETAL: There is no cyanosis or clubbing in the digits. There is full active range of motion of all 4 extremities. SKIN: Visible areas of skin are warm and dry and without rash. NEUROLOGIC: Cranial nerves II through XII are grossly intact. Sensation is intact to light touch. Strength is 5/5 and symmetric in both upper and lower extremities bilaterally. PSYCH: The patient is alert, she is oriented x3. Affect appears appropriate. DIAGNOSTIC STUDIES/LAB DATA: WBC 9.5, hemoglobin 12.2, hematocrit 36, platelets 359. Sodium 137, potassium 4.1, chloride 108, CO2 25, BUN 13, creatinine 0.95, glucose 102. Lactic 1.4 down to 0.5. Calcium 9.1, bilirubin 0.2, AST 12, ALT 18, alk phos 66, CRP 22.96, albumin 3.7, lipase 14. Urinalysis reveals a specific gravity of 1.015. 1+ leukocyte esterase, 1+ wbc, absent bacteria. CT abdomen and pelvis: Negative CT abdomen and pelvis. There is partial visualization of a normal appendix adjacent to the cecal tip. The entire appendix was not completely delineated. Appendix ultrasound: The appendix was not seen. Appendicitis was not excluded. Transvaginal ultrasound: Negative pelvic sonogram. No right ovarian blood flow was documented. EKG: Reveals sinus tachycardia without any acute ST or T-wave abnormality. ASSESSMENT AND PLAN: Ms. Hernandez is a 19-year-old female with no significant past medical history who presented to the emergency room with complaints of 4 days of intermittent severe right lower quadrant abdominal pain. 1. Right lower quadrant abdominal pain. The etiology behind this was not clear. There is questionable lack of blood flow to the right ovary. Ovarian torsion is a potential; however, as there is no edema seen of the ovary, this seems unlikely. The patient has already been seen by Dr. Mas from [facility]. It has been recommended that the patient have a repeat transvaginal ultrasound obtained early this morning. I had this ordered for 8 a.m. For pain control, we will attempt to utilize Toradol. I would like to minimize narcotic use. She will have p.r.n. Zofran. As the patient is tender to light palpation, I do question if perhaps this could be musculoskeletal in nature. Her lab work is not concerning for infection. Her CRP; however, is mildly elevated. 2. DVT prophylaxis. According to the Adult Thrombosis Prophylaxis Risk Factor Assessment Guide the patient has a total risk factor score of 1 making her low risk. Ambulation will be utilized as DVT prophylaxis. 3. Code status is full. TIME SPENT: Forty-five minutes was spent admitting this patient. [id number]/[facility] #: [id number] RIMA
[2019-06-23] MEDS: Ketorolac INJ* 30 MG/ML 1 ML VIAL IV PUSH PRN ×2 (02:45→08:52)
--- NOTE | 2019-06-23 11:04 | PN ---
Progress Note - Progress Note Date of Service: 06/23/19 SOAP: Subjective: Pt seen and examined. Still with abdo pain. nausea, but no additional vomiting Objective: [ Temp Pulse Resp BP Pulse Ox 98.4 F 102 18 105/60 100 06/23/19 08:00 06/23/19 08:00 06/23/19 08:00 06/23/19 08:00 06/23/19 08:00 abdo: soft/ ND/ tender at RLQ exteding to groin. no rebound. Assessment: vomiting, abdo pain- no evidence of infection, or appendicitis Plan: ivf repeat CBC no surgical intervention recommend GI consult if nausea, pain persist
[2019-06-23] MEDS ORDERED: fentaNYL* 50 MCG/ML 2 ML VIAL (100 MCG VIAL) ONE (13:45)
[2019-06-23] MEDS ORDERED: Midazolam* 1 MG/ML 10 ML VIAL (10 MG) ONE (13:45)
--- NOTE | 2019-06-23 13:54 | PN ---
Subjective Date of Service: 06/23/19 Interval History: Ms. Hernandez is not feeling any better today. Abdominal pain remains present in RLQ, 02/07. Improved with Toradol. She is sleeping on my arrival. Denies N/V and asking nursing for something to eat. Multiple family members at bedside, requesting GI consult and expressing concern about cancer based on strong family history of various cancers. No concerns from nursing. Family History: Unchanged from Admission Social History: Unchanged from Admission Past Medical History: Unchanged from Admission Objective Active Medications: Dicyclomine HCl (Bentyl Cap*) 10 mg PO TID PRN cramping Ethinyl Estradiol/Desogestrel ([place] 0.03/0.15 (Nf)) 1 tab PO QPM JULIA Sodium Chloride (Ns 0.9% 1000 Ml) 1,000 mls @ 100 mls/hr IV PER RATE JULIA Ketorolac Tromethamine (Toradol Inj*) 30 mg IV PUSH Q6H PRN PAIN - MODERATE Ondansetron HCl (Zofran Inj*) 4 mg IV Q6H PRN NAUSEA Vital Signs - 8 hr 06/23/19 06/23/19 08:00 11:15 Temperature 98.4 F 98.4 F Pulse Rate 102 86 Respiratory 18 16 Rate Blood Pressure 105/60 113/72 (mmHg) O2 Sat by Pulse 100 100 Oximetry Oxygen Devices in Use Now: None Appearance: Young adult female lying in bed in NAD Ears/Nose/Mouth/Throat: Mucous Membranes Moist Neck: NL Appearance and Movements; NL JVP, Trachea Midline Respiratory: Symmetrical Chest Expansion and Respiratory Effort, Clear to Auscultation Cardiovascular: NL Sounds; No Murmurs; No JVD, RRR Abdominal: - - RLQ tender, soft throughout Extremities: No Edema Neurological: Alert and Oriented x 3 - Drowsy Lines/Tubes/Other Access: Clean, Dry and Intact Peripheral IV Result Diagrams: 06/22/19 19:27 06/22/19 19:27 Assess/Plan/Problems-Billing Assessment: Ms. Hernandez is a 19 yo F with no significant PMH, who presented to the ED with c/o RLQ pain, present intermittently for at least 5 days with associated N/V. - Patient Problems (1) Abdominal pain Code(s): R10.9 - UNSPECIFIED ABDOMINAL PAIN Comment: - Intermittent RLQ; became near syncopal d/t pain - Associated N/V, no diarrhea - Questionable ovarian torsion or lack of blood flow on admission but repeat transvaginal US this morning is unremarkable - Appreciate Surgery consult; no evidence of appendicitis - Appreciate GI consult; possible EGD today - Continue Toradol; will avoid narcotics (2) DVT prophylaxis Code(s): Z29.9 - ENCOUNTER FOR PROPHYLACTIC MEASURES, UNSPECIFIED Comment: - Ambulation (3) Full code status Code(s): Z78.9 - OTHER SPECIFIED HEALTH STATUS Comment: Status and Disposition: Observation. Anticipate d/c home when medically stable. Attending: Rosette Jacobson
[2019-06-23 15:34] VITALS: BP 108/69
[2019-06-23 15:57] LABS: ABS Eosinophils 0.2 10^3/ul (0-0.6); ABS Lymphocytes 1.8 10^3/ul (1.0-4.8); ABS Monocytes 0.5 10^3/ul (0-0.8); ABS Neutrophils 5.5 10^3/ul (1.5-7.7); Hematocrit 36 % (35-47); Lymphocyte % 22.6 %; Mean Corpuscular HGB Conc 34 g/dL (31-36); Mean Corpuscular Hemoglobin 30 pg (27-31); Mean Corpuscular Volume 88 fL (80-97); Mean Platelet Volume 6.9 fL (7.4-10.4); Platelet Count 307 10^3/uL (150-450); Red Blood Count 4.04 10^6 /uL (3.70-4.87); Red Cell Distribution Width 13 % (10-15)
--- NOTE | 2019-06-23 16:05 | PRO ---
PROCEDURE REPORT: DATE OF PROCEDURE: 06/23/19 PROCEDURE: EGD with biopsy. INPATIENT PROVIDER: Charis Cunningham NP INDICATIONS: The patient presents with a week of nausea, vomiting, and right lower quadrant abdominal discomfort. Labs are notable for elevated CRP. Imaging without any acute findings. The patient reports that nausea and vomiting is much improved today. Right lower quadrant pain persists but is also improved. The patient last had a bowel movement on Saturday. No diarrhea or constipation complaints. She does complain of significant gas and bloating. MEDICATIONS GIVEN: 1. Midazolam 15 mg IV. 2. Fentanyl 100 mcg IV. DESCRIPTION OF PROCEDURE: Full disclosure of risks was reviewed with the patient as detailed on the consent form. The patient was placed in the left lateral decubitus position and monitored with continuous pulse oximetry, capnography, interval blood pressure monitoring, and direct observation. A bite -block was placed between the patient's teeth. An adult gastroscope was then inserted into the patient's mouth and advanced down the esophagus, into the stomach, and into the distal duodenum. Findings and interventions are described below. FINDINGS: Esophagus was a normal tubular structure without ring or strictures. The GE junction occurred at 35 cm. There was mild esophagitis. The Z-line was mildly irregular with 0.5 to 1 cm proximal extension above the GE junction. Scope was then advanced into the stomach. Stomach was examined in the forward and retroflexed views. There was a mild amount of retained gastric fluid that was suctioned. No residual food material seen. Gastric mucosa was normal in appearance. No erosions or ulcers. The scope was then advanced into the duodenum to at least the third portion. Duodenal mucosa was normal in appearance. Ampulla was visualized and was normal. No erosions or ulcers. Biopsies obtained from the duodenum for histologic evaluation as well as disaccharidase enzyme analysis. The scope was then withdrawn back into the stomach. Biopsy obtained from the antrum for CLOtest. Scope was then withdrawn into the esophagus. Biopsies were obtained from the GE junction. Scope was then withdrawn from the patient. The patient tolerated the procedure well and was recovered in the GI recovery area. IMPRESSION: 1. Complete upper endoscopy to distal duodenum. 2. Mild esophagitis. 3. Otherwise unremarkable exam. FOLLOWUP: 1. Await pathology. 2. Start omeprazole 40 mg daily x1 month. Then decrease to 20 mg daily x1 month. Can then stop this med if the patient is feeling well from a GI standpoint. 3. If the patient's right lower quadrant pain persists, then I would recommend checking a fecal calprotectin given the elevated CRP. 4. Follow-up in GI clinic if symptoms persist. 5. Recommend advancing diet as the patient reports the pain is improving today. Thank you very much for this consult. [id number]/[facility] #: [id number] RIMA
--- NOTE | 2019-06-23 16:38 | CONS ---
GASTROENTEROLOGY CONSULT REPORT: DATE OF CONSULT: 06/23/19 REQUESTING PROVIDER: Charis Cunningham NP REASON FOR CONSULT: Nausea, vomiting, abdominal pain. HISTORY OF PRESENT ILLNESS: Ms. Hernandez is a 19-year-old woman without significant past medical history who is admitted with right lower quadrant pain , nausea, and vomiting. Ms. Hernandez was in her usual state of health until last . She ate barbecue wings and shortly after developed nausea, vomiting and right lower quadrant pain. She estimates that she vomited more than 20 times on . Nausea persisted for several days with vomiting intermittently. She did not see any blood mixed with the emesis. She describes the pain in the right lower quadrant as waxing and waning. The patient is sharp in nature. Bowel movements have not been significantly changed, although she believes her last bowel movement was Saturday. This stool was quite dark at that time, which she was told might be related to Pepto-Bismol use. Her oral intake has been decreased. She is not aware of any weight loss. She has noted an increasing gas and bloating. She has gone to the ER on several occasions and was discharged. She is admitted at this time given the ongoing nature of symptoms. Workup during this admission demonstrated normal CBC. Comprehensive panel notable for barely low AST of 12. CRP elevated to 22.96. She underwent a CT abdomen and pelvis yesterday, which was unremarkable, although the appendix was not fully visualized. Followup appendix ultrasound was again limited as the appendix was not fully seen. She had a pelvic transvaginal ultrasound yesterday evening and today. Pelvic ultrasound was normal today. Given persistent symptoms, GI was consulted. At the time of interview on Saturday, Ms. Hernandez states that her nausea and vomiting have resolved. She has not had any vomiting since yesterday. Abdominal pain is also beginning to improve. She is eager to try to advance her diet. She denies any GI symptoms at baseline. She reports that she was told that she has an issue with gluten. This diagnosis was given when she was in fifth grade. She does not believe she ever had testing to confirm celiac disease. She has remained on a gluten free diet. PAST MEDICAL HISTORY: 1. Gluten intolerance versus celiac disease. PAST SURGICAL HISTORY: 1. Tonsillectomy. 2. Cyst removal from behind left ear. 3. Left wrist cyst removal. MEDICATIONS: 1. Vitamin D 2000 units daily. 2. Juleber 1 tablet daily. 3. Ferrous sulfate 325 mg daily. ALLERGIES: No known drug allergies. FAMILY HISTORY: Mother has a history of breast and ovarian cancer. No known GI or liver disease in family. 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 She is not . No alcohol use. No smoking. No drug use. REVIEW OF SYSTEMS: Complete review of systems negative except as mentioned above. PHYSICAL EXAM: Vital Signs: Afebrile, heart rate 86, blood pressure 113/72, 100% on room air. General: Pleasant, well-appearing woman, in no acute distress. HEENT: Mucous membranes are moist. Cardiovascular: Regular rate and rhythm. Pulmonary: Clear lungs bilaterally. Abdomen: Soft, nondistended. Mild tenderness in right lower quadrant, although I was able to palpate fairly deeply. No guarding. No rebound tenderness. Extremities: No significant edema. Skin: No jaundice or rash on examined areas of skin. DIAGNOSTIC STUDIES/LAB DATA: Labs reviewed as per HPI. Labs only notable for an elevated CRP to 22.96. It appears that this has been elevated to a lesser degree going back to the beginning of the year. Imaging: Imaging as reviewed above in the HPI. CT abdomen and pelvis without any acute findings. Pelvic transvaginal ultrasound was normal. IMPRESSION AND RECOMMENDATIONS: Ms. Hernandez is a 19-year-old woman without significant past medical history, who is admitted for a week of nausea, vomiting , and right lower quadrant discomfort. Afebrile. Workup notable only for elevated CRP. Nausea and vomiting have now resolved. Right lower quadrant persists, although this has improved. Favor infectious gastroenteritis (vs food-borne illness) given acuity of symptoms with significant improvement today. Differential also GERD +/- esophagitis, PUD , IBD. - Will plan for EGD today given the significant n/v symptoms. NPO. - Symptom management per primary team. Consider initiation of Miralax as no bowel movement since Saturday. Constipation may be contributing to RLQ pain. - Depending on EGD findings and symptoms, I would consider fecal calprotectin given the elevated CRP. - Consider colonoscopy in outpatient setting if RLQ persists, particularly if fecal calprotectin is positive. Thank you for this consult. Megha Abdullahi MD Gastroenterology [id number]/[facility] #: [id number] MTDCindy
[2019-06-23] MEDS ORDERED: Ethinyl Estrad/Desogest 0.03/0.15 (NF) TAB PO SCH (18:00)
--- NOTE | 2019-06-23 23:38 | DS ---
DISCHARGE SUMMARY: DATE OF ADMISSION: 06/23/19 DATE OF DISCHARGE: 06/23/19 PRIMARY CARE PROVIDER: None. ATTENDING PHYSICIAN: Dr. Rosette Jacobson* (dictated by Esa Cunningham NP). PRIMARY DIAGNOSES: 1. Abdominal pain, suspected viral gastroenteritis. 2. Mild esophagitis. SECONDARY DIAGNOSIS: None. STUDIES WHILE IN THE HOSPITAL: 1. Abdomen and pelvis CT on 06/22/[address] abdomen and pelvis. There is partial visualization of a normal appendix adjacent to the cecal tip. The entire appendix is not completely delineated. 2. Appendix ultrasound on 06/22/19 reads as the appendix is not seen. Appendicitis is not excluded. 3. EKG on 06/22/19 shows sinus tachycardia with a rate of 105. 4. Transvaginal ultrasound on 06/22/19 reads as negative pelvic sonogram. No right ovarian blood flow is documented. 5. Transvaginal ultrasound on 06/23/19 reads as negative pelvic ultrasound. Normal vascular flow documented at both ovaries. PROCEDURES WHILE IN THE HOSPITAL: 1. EGD on 06/23/[address] Abdullahi. HISTORY OF PRESENT ILLNESS AND HOSPITAL COURSE: Ms. Hernandez is a 19-year-old female with no significant past medical history, who presented to the emergency room on 06/22/19 with complaints of right lower quadrant pain. Please see the history and physical by Dr. Gamboa for complete summary of the events leading up to this hospitalization. In short, the patient had approximately 4 days of intermittent severe abdominal pain. Reportedly on the first day of the pain, she experienced a fever up to 102 degrees Fahrenheit. She had associated nausea and vomiting, though no diarrhea. Ultimately yesterday, she was out shopping and had a near syncopal event when she began to experience recurrent abdominal pain and so she presented to the emergency room. In the emergency room, the patient had imaging as noted above. Blood work was unremarkable except for a CRP of 22. Vital signs were stable except for some mild tachycardia. She had imaging as noted above. She was admitted by the hospitalist service. There was some concern about a lack of blood flow to the right ovary. Gynecology was consulted and the patient was seen by Dr. Mas on 06/23/19. At that time, she did not think ovarian torsion was likely, but recommended a repeat ultrasound in the morning. We did have a repeat ultrasound this morning , which was normal as noted above and showed normal blood flow to both ovaries. Surgery was also consulted and the patient was seen by Dr. Graham both on admission and again this morning. He did not feel as though there was any evidence of appendicitis or infection and recommended GI consultation if symptoms were persisting. The patient was still having significant abdominal pain this morning. She had remained n.p.o. after midnight. Her family was quite concerned and requesting a GI consult. I did talk with Dr. Abdullahi who saw the patient today and ultimately did an EGD on the patient. Official report of that EGD is pending at this time, though verbal report from her was that of a normal EGD except for findings of mild esophagitis. She did recommend placing the patient on omeprazole b.i.d. for 30 days followed by daily for 30 days and advancing diet as tolerated. At this point, the patient is back on the floor. She is feeling well. She is requesting to go home. She has tolerated a clear liquid diet as well as some crackers and has not had any increasing pain or any nausea, vomiting. Repeat blood work this afternoon did show a normal white blood count and tachycardia has essentially resolved. Ms. Hernandez is stable for discharge. Most recent vitals are as follows: Temp 97.9, heart rate 100, respiratory rate 18, oxygen saturation 100% on room air, blood pressure 108/69. DISCHARGE MEDICATIONS: New medications: Omeprazole 20 mg p.o. b.i.d. x30 days, then daily x30 days, then stop. Continued medications: 1. Oral contraceptive 1 tab p.o. daily. 2. Bentyl 10 mg p.o. t.i.d. p.r.n. abdominal cramping. 3. Cholecalciferol 2000 units p.o. daily. 4. Ferrous sulfate 325 mg p.o. daily. 5. Ondansetron 4 mg p.o. q.8 hours p.r.n. vomiting. DISCHARGE PLAN: Ms. Hernandez will be discharged home. Activity will be as tolerated. Diet will be full liquids and advancing as tolerated. Medications are noted above per the recommendations of Gastroenterology. I have prescribed the patient omeprazole b.i.d. for 30 days followed by daily for 30 days. At that point, she can stop. She does not have a primary care provider, although I have put the information for the [facility] on her discharge paperwork. She may also follow up with GI if her symptoms are persisting and I did put Dr. Abdullahi's office information on the paperwork as well. I will note that looking back through the patient's visit history, she has had many emergency room visits for abdominal pain within the past 2 years. So, she very well may benefit from a followup with GI. She should return to the emergency room or nearest hospital for any worsening of symptoms, shortness of breath, lightheadedness, dizziness, chest discomfort, high fevers, chills, night sweats , loss of consciousness or any other worrisome signs or symptoms. DISCHARGE CONDITION: Stable. DISCHARGE DISPOSITION: Home. This is a summarized report of a complex medical history and hospital stay. For further details, please see the entire medical record. TIME SPENT: Approximately 45 minutes was spent on this discharge. ESA CUNNINGHAM NP [id number]/CPS #: [id number] RIMA
== END 2019-06-23 16:50 | disposition home or self-care (01) ==
LOC: ED 19:00 → MED 06-23 00:41
PROVIDERS: ADMIT Hospitalist; ATTEND Internal Medicine
DX: R10.9 Unspecified abdominal pain (principal); K20.9 Esophagitis, unspecified; Z79.3 Long term (current) use of hormonal contraceptives; Z79.899 Other long term (current) drug therapy
CPT/HCPCS: 36415; 74177; 76705; 76830; 76856; 76857; 80053; 81003; 81015; 82657; 83605; 83690; 85025; 86140; 87077; 87086; 88305; 93005; 96374; 96375; 96376; 99156; 99157; 99284; A9270-GY; G0378; J1885; J2250; J2270; J2405; J3010; Q9967

== ENCOUNTER 2019-07-03 16:28 | Emergency (ER) | payer MEDICAID, OTHER ==
[2019-07-03] MEDS ORDERED: NS 0.9% 1000 ML** 1,000 ML IV ONE (18:21)
--- NOTE | 2019-07-03 18:21 | ED ---
Abdominal Pain/Female - HPI Summary HPI Summary: Patient complains of recurrent right lower quadrant pain. Abdominal pain has been recurrent over the past few months. Also states she started her period yesterday with heavier than normal blood flow with passage of one large clot.. Right lower quadrant pain is crampy, intermittent,. Denies fever, cough, sore throat, CP, SOB, N/V/D, change in urine, change in BM. Patient was admitted for same sx on 06/22/19, with negative CT abdomen and pelvis, 1 transvaginal ultrasound positive for no right ovarian blood flow, and repeat transvaginal ultrasound positive for blood flow to both ovaries, unremarkable EGD with unremarkable biopsies. Patient's pain resolved on prior visit and patient was discharged with recommendation to follow up with GI. Patient has not followed up with GI. Medical history is none. Abdominal surgical history is none. - History of Current Complaint Chief Complaint: EDOBProblems Stated Complaint: HEAVY BLEEDING PER PT Time Seen by Provider: 07/03/19 18:14 Hx Obtained From: Patient Hx Last Menstrual Period: 06/01/19 Onset/Duration: Gradual Onset, Lasting Weeks Timing: Intermittent Episode Lasting Severity Initially: Severe Severity Currently: Severe Pain Intensity: 8 Pain Scale Used: 0-10 Numeric Location: Discrete At: RLQ Radiates: No Character: Cramping Aggravating Factor(s): Nothing Alleviating Factor(s): Nothing Associated Signs and Symptoms: Positive: Vaginal Bleeding Allergies/Adverse Reactions: Allergies Allergy/AdvReac Type Severity Reaction Status Date / Time No Known Allergies Allergy Verified 07/03/19 16:39 PMH/Surg Hx/FS Hx/Imm Hx Endocrine/Hematology History: Denies: Hx Diabetes, Hx Thyroid Disease Cardiovascular History: Denies: Hx Hypertension, Hx Pacemaker/ICD Respiratory History: Denies: Hx Asthma, Hx Chronic Obstructive Pulmonary Disease (COPD) GI History: Denies: Hx Ulcer History: Denies: Hx Renal Disease Sensory History: Reports: Hx Contacts or Glasses Denies: Hx Hearing Aid Opthamlomology History: Reports: Hx Contacts or Glasses EENT History: Denies: Hx Deafness Neurological History: Denies: Hx Dementia Psychiatric History: Reports: Hx Anxiety - tends to get anxious with "overload" no meds Denies: Hx Panic Disorder - Surgical History Surgery Procedure, Year, and Place: 2004 [facility], CYST REMOVAL FORM EARS. [facility] cyst removed from her left wrist 2018 Hx Anesthesia Reactions: No - Immunization History Date of Influenza Vaccine: 05/2019 Infectious Disease History: No Infectious Disease History: Denies: Hx Clostridium Difficile, Hx Hepatitis, Hx Human Immunodeficiency Virus (HIV), Hx of Known/Suspected MRSA, Hx Shingles, Hx Tuberculosis, Hx Known/ Suspected VRE, Hx Known/Suspected VRSA, History Other Infectious Disease, Traveled Outside the [place] in Last 30 Days - Family History Known Family History: Positive: Cardiac Disease, Hypertension - Social History Alcohol Use: None Hx Substance Use: No Substance Use Type: Reports: None Hx Tobacco Use: No Smoking Status (MU): Never Smoked Tobacco Have You Smoked in the Last Year: No Review of Systems Constitutional: Negative Eyes: Negative ENT: Negative Cardiovascular: Negative Respiratory: Negative Positive: Abdominal Pain Genitourinary: Negative Musculoskeletal: Negative Skin: Negative Neurological: Negative Psychological: Normal All Other Systems Reviewed And Are Negative: Yes Physical Exam - Summary Physical Exam Summary: Mild tenderness in right lower quadrant, abdominal exam otherwise unremarkable. Triage Information Reviewed: Yes Vital Signs On Initial Exam: Initial Vitals Temp Pulse Resp BP Pulse Ox 97.7 F 81 18 114/83 98 07/03/19 16:35 07/03/19 16:35 07/03/19 16:35 07/03/19 16:35 07/03/19 16:35 Vital Signs Reviewed: Yes Appearance: Positive: Well-Appearing Skin: Positive: Warm Head/Face: Positive: Normal Head/Face Inspection Eyes: Positive: Normal Neck: Positive: Supple Respiratory/Lung Sounds: Positive: Clear to Auscultation Cardiovascular: Positive: Normal Abdomen Description: Positive: Other: Musculoskeletal: Positive: Normal Neurological: Positive: Normal Psychiatric: Positive: Normal AVPU Assessment: Alert - Tanya Coma Scale Best Eye Response: 4 - Spontaneous Best Motor Response: 6 - Obeys Commands Best Verbal Response: 5 - Oriented Coma Scale Total: 15 Procedures - Sedation Patient Received Moderate/Deep Sedation with Procedure: No Diagnostics - Vital Signs Vital Signs Temp Pulse Resp BP Pulse Ox 07/03/19 16:35 97.7 F 81 18 114/83 98 - Laboratory Result Diagrams: 07/03/19 18:46 07/03/19 18:46 Lab Statement: Any lab studies that have been ordered have been reviewed, and results considered in the medical decision making process. Abdominal Pain Fem Course/Dx - Course Course Of Treatment: Patient complains of recurrent right lower quadrant pain. Abdominal pain has been recurrent over the past few months. Also states she started her period yesterday with heavier than normal blood flow with passage of one large clot.. Right lower quadrant pain is crampy, intermittent,. Denies fever, cough, sore throat, CP, SOB, N/V/D, change in urine, change in BM. Patient was admitted for same sx on 06/22/19, with negative CT abdomen and pelvis, 1 transvaginal ultrasound positive for no right ovarian blood flow, and repeat transvaginal ultrasound positive for blood flow to both ovaries, unremarkable EGD with unremarkable biopsies. Patient's pain resolved on prior visit and patient was discharged with recommendation to follow up with GI. Patient has not followed up with GI. Medical history is none. Abdominal surgical history is none. Vital signs within normal limits. Labs unremarkable. Transvaginal ultrasound negative. Urine negative. Discussed patient with [employer] Dr. Mas as she had been consulted on patient's prior admission. Possibility of intermittent torsion discussed, but considered low possibility. Dr. Mcdowell recommends discharge and follow-up in clinic. Patient advised to follow-up with GI for right lower quadrant pain, and follow up with [employer] for heavier than normal menstrual bleeding with clots. negative. Patient understands and approves of plan - Diagnoses Provider Diagnoses: Right lower quadrant abdominal pain, Abnormal vaginal bleeding Discharge ED - Sign-Out/Discharge Documenting (check all that apply): Patient Departure - Discharge Plan Condition: Stable Disposition: HOME Prescriptions: Oxycodone HCl 5 mg PO BID 3 Days #6 tablet MDD 2 tabs Patient Education Materials: Dysfunctional Uterine Bleeding (ED), Abdominal Pain (ED) Referrals: No Primary Care Phys,NOPCP [Primary Care Provider] - Patricia Mas MD [Medical Doctor] - Megha Abdullahi MD [Medical Doctor] - Additional Instructions: Alternate Tylenol 650 mg with ibuprofen 600 mg every 3 hours as needed for abdominal pain. Follow-up with [employer] Dr. Mas for further evaluation of heavy vaginal bleeding and clot production. Follow-up with GI Doctor Arnulfo Daniel for further evaluation of right side abdominal pain. You may also try pelvic physical therapy for right-sided abdominal pain. You may need to go through your primary care doctor for referrals. - Billing Disposition and Condition Condition: STABLE Disposition: Home - Attestation Statements Provider Attestation: I have seen the patient with the PATRICIA and agree with the plan and documentation below except as noted: 19-year-old female with recent admit for right lower quadrant pain and concern for torsion, who presents with continued pain. Patient was evaluated by general surgery, and OB during her last admission. Patient was also seen by GI. Patient's repeat US here does not show any evidence of torsion, case discussed with on-call OB who recommended outpatient follow-up. She does not have labs suggestive of infection, did not repeat CT scan Juan Soria MD
[2019-07-03 18:56] LABS: ABS Eosinophils 0.3 10^3/ul (0-0.6); ABS Lymphocytes 2.9 10^3/ul (1.0-4.8); ABS Monocytes 0.6 10^3/ul (0-0.8); Eosinophil % 3.3 %; Hematocrit 40 % (35-47); Hemoglobin 13.6 g/dL (12.0-16.0); Lymphocyte % 37.9 %; Mean Corpuscular HGB Conc 34 g/dL (31-36); Mean Corpuscular Hemoglobin 30 pg (27-31); Mean Corpuscular Volume 88 fL (80-97); Mean Platelet Volume 7.1 fL (7.4-10.4); Nucleated Red Blood Cells % 0.1; Platelet Count 472 10^3/uL (150-450); Red Blood Count 4.56 10^6 /uL (3.70-4.87); Red Cell Distribution Width 13 % (10-15); White Blood Count 7.8 10^3/uL (3.5-10.8)
[2019-07-03 19:14] LABS: ALT 12 U/L (7-52); AST 17 U/L (13-39); Albumin 4.1 g/dL (3.2-5.2); Albumin/Globulin Ratio 1.3 (1-3); Alkaline Phosphatase 75 U/L (34-104); Anion Gap 6 mmol/L (2-11); BUN/Creatinine Ratio 11.6 (8-20); Blood Urea Nitrogen 10 mg/dL (6-24); CO2 Carbon Dioxide 26 mmol/L (22-32); Calcium 8.9 mg/dL (8.6-10.3); Chloride 105 mmol/L (101-111); EGFR African American 100.8 (>60); EGFR Non-African American 83.3 (>60); Globulin 3.2 g/dL (2-4); Glucose 95 mg/dL (70-100); Potassium 3.6 mmol/L (3.5-5.0); Sodium 137 mmol/L (135-145); Total Protein 7.3 g/dL (6.4-8.9)
[2019-07-03 19:20] LABS: HCG Pregnancy < 0.60 mIU/mL
[2019-07-03] MEDS ORDERED: Ondansetron INJ* 2 MG/ML VIAL IV ONE (19:24)
[2019-07-03] MEDS ORDERED: Morphine 4 MG/ML VIAL (1 ml) 4 MG/ML VIAL IV ONE (19:24)
[2019-07-03 20:08] LABS: Urine Appearance Cloudy; Urine Bilirubin Negative (Negative); Urine Blood 3+ (Negative); Urine Color Yellow; Urine Glucose Negative (Negative); Urine Ketones Negative (Negative); Urine Nitrite Negative (Negative); Urine Protein Negative (Negative); Urine Specific Gravity 1.013 (1.010-1.030); Urine Urobilinogen Negative (Negative)
[2019-07-03 20:17] LABS: Urine Bacteria Absent (Absent); Urine Red Blood Cell 3+(>10/hpf) (Absent); Urine Squamous Epithelial Cell Present (Absent); Urine White Blood Cell Trace(0-5/hpf) (Absent)
[2019-07-03 21:33] VITALS: BP 115/74
== END 2019-07-03 21:29 | disposition home or self-care (01) ==
LOC: ED 16:28
DX: R10.31 Right lower quadrant pain (principal); N93.9 Abnormal uterine and vaginal bleeding, unspecified
CPT/HCPCS: 36415; 76830; 80053; 81003; 81015; 83690; 84702; 85025; 87086; 96361; 96374; 96375; 99283; J2270; J2405

== ENCOUNTER 2019-10-16 12:51 | Emergency (ER) | payer OTHER ==
[2019-10-16 13:27] VITALS: BP 108/73
--- OUTSIDE RECORDS SUMMARY | 2019-10-16 13:29 | XMS REPORT | Continuity of Care Document ---
:2000 External Reference #:[id number] Author Name [facility] (transmitted by agent of provider Raquel Tripathi) Address [address] [place] [address] Care Team Providers Name Role Phone Alisia Mcfarland DO - Pediatrics Care Team Information Cap Blocker [phone] Sunni Turk MD - Internal Medicine Care Team Information Cap Blocker [phone] Problems Active Problems Provider Date Right lower quadrant pain Sherry De NP Onset: 10/24/2018 Gastroesophageal reflux disease Sherry De NP Onset: 10/24/2018 Dysmenorrhea Ania Jarquin N.Toi Onset: 11/27/2018 Social History Type Date Description Comments Sex Unknown ETOH Use Denies alcohol use Tobacco Use Start: Unknown Patient has never smoked Recreational Drug Use Denies Drug Use Smoking Status Reviewed: 03/27/19 Patient has never smoked Exercise Type/Frequency Exercises regularly Allergies, Adverse Reactions, Alerts Description No Known Drug Allergies Medications Active Medications SIG Qnty Indications Ordering Provider Date Miralax please take 17 357gm Sherry Alaniz 10/03/2018 [id number] Powder grams in a drink NERIS De of your choice. one/two drinks as directed. Apri 1 by mouth every Unknown 0.15-30mg-mcg day Tablets Iron Tablet Unknown Vitamin D 1 by mouth every Unknown 2000Unit day Tablets Immunizations Description No Information Available Vital Signs [...] (Body Mass Index) 30.1 kg/m2 Results Test Acquired Date Facility Test Result H/L Range Note Laboratory test 06/23/2019 [facility] Surgical SEE RESULT [address] [place] [address] Order [phone] Laboratory test 05/22/2019 [facility] Rubella Screen Immune Immune finding [address] [place], [place] [id number] [phone] Mumps Igg 05/22/2019 [facility] Mumps Virus Positive [address] [place] [address] [phone] Mumps IgG Antibody Index 2.9 3 Rubeola Measles 05/22/2019 [facility] Rubeola (Measles) Positive [address]gg [address] [place] [address] [phone] Rubeola IgG Antibody Index 4.4 5 Varicella Zoster 05/22/2019 [facility] Varicella-Zoster IgG Negative 6 Igg AB [address] Antibody [place], [place] [id number] [phone] Varicella IgG Antibody Index 0.6 7 Quantiferon-TB 05/22/2019 [facility] QuantiferonTb Negative Negative [address] [place] [address] [phone] TB1 Ag minus Nil Result 0.00 IU/mL TB2 Ag minus Nil Result 0.00 IU/mL Mitogen minus Nil Result 14.46 IU/mL Nil Result 0.03 IU/mL 1 SEE RESULT BELOW Name: LYNCHJOHAN MAK ROSALIO : [address]: Maite Devlin DO Acct: [id number] Unit: [id number] AGE: 19 Location: [place] [address] Re06/23/19 Dis: 06/23/19 SEX: F Status: DIS Klever SPEC: [id number] MICHAEL: 06/23/19142 [facility] DR: Megha Daniel MD REQ: [id number] RECD: 06/23/19 STATUS: IAIN DELA CRUZ DR: Maite Devlin DO _ ORDERED: LEVEL 4/2 FINAL DIAGNOSIS 1. Small bowel, duodenum, biopsy: -- Small bowel mucosa with normal villous architecture and no significant pathologic abnormality. -- No villous blunting or increase in lamina propria lymphoplasmacytic infiltrate identified. 2. Gastroesophageal junction, biopsy: -- Superficial gastric Cardia-type mucosal fragments. -- No goblet cell/intestinal metaplasia or dysplasia identified. -- No squamous component identified. CLINICAL HISTORY Nausea and vomiting; right lower quadrant; abdominal pain POST-OPERATIVE DIAGNOSIS EGD: esophagus - gastroesophageal junction at 35 cm - mild esophagitis biopsy ; irregular - thickened; gastric - normal; biopsy; duodenum - normal; biopsy CONTINUED ON NEXT PAGE DEPARTMENT OF PATHOLOGY, [address] [place] [address] Florentin Mehta M.D. Director [facility] # [id number] GROSS DESCRIPTION 1. The specimen is received in formalin labeled, Duodenum Biopsies, and consists of a 1.0 x 0.9 x 0.4 cm aggregate of speckled belle-pink irregular to polypoid soft tissue fragments, which is entirely submitted in one cassette. 2. The specimen is received in formalin labeled, GE Junction Biopsies, and consists of a 0.8 x 0.4 x 0.3 cm aggregate of speckled belle-pink irregular to polypoid soft tissue fragments, which is entirely submitted in one cassette. Signed by and Reported on: Florentin Mehta MD 1102 END OF REPORT DEPARTMENT OF PATHOLOGY, [address] [place] [address] Florentin Mehta M.D. Director [facility] # [id number] 2 Results suggest response to immunization or prior exposure to the virus. REFERENCE VALUE Vaccinated: Positive (>=1.1 AI) Unvaccinated: Negative (<=0.8 AI) 3 Test Performed by: [facility] [place] [address] Manager Of Program: Galen Smith M.D. Ph.D.; CLIA# [id number] 4 Results suggest response to immunization or prior exposure to the virus. REFERENCE VALUE Vaccinated: Positive (>=1.1 AI) Unvaccinated: Negative (<=0.8 AI) 5 Test Performed by: [facility] [place] [address] Manager Of Program: Galen Smith M.D. Ph.D.; CLIA# [id number] 6 REFERENCE VALUE Vaccinated: Positive (>=1.1 AI) Unvaccinated: Negative (<=0.8 AI) 7 Test Performed by: [facility] [address] [place] [address] Manager Of Program: Galen Smith M.D. Ph.D.; CLIA# [id number] 8 M. tuberculosis infection NOT likely Procedures Description No Information Available Medical Devices Description No Information Available Encounters Type Date Location Provider Dx Diagnosis Office Visit [facility] Joseph Graham, R10.31 Right lower 7:00a Of [facility] , FACS quadrant pain R11.2 Nausea with vomiting, unspecified Office Visit 03/27/2019 3:00p [facility] Internal Sunni Turk MD M54.5 Low back pain Medicine - [facility] M25.512 Pain in left shoulder Assessments Date Code Description Provider 06/23/2019 R10.31 Right lower quadrant pain Joseph Graham MD, FACS 06/23/2019 R11.2 Nausea with vomiting, unspecified Joseph Graham MD, FACS 03/27/2019 M54.5 Low back pain Sunni Turk MD 03/27/2019 M25.512 Pain in left shoulder Sunni Turk MD Plan of Treatment Future Appointment(s):09/29/2019 4:20 pm - Sunni Turk MD at [facility] Internal Medicine - [facility]03/27/2019 - Sunni Turk MDM54.5 Low back painNew Therapy: Physical TherapyFollow up:F/U for physical and PAP in 6 months ( that has to be under regular insurance)M25.512 Pain in left shoulderComments:Continue to do PT as suggested by Sports Medicine Functional Status Description No Information Available Mental Status Description No Information Available Referrals Refer to Reason for Referral Status Appt Date Jamaal Torres M.D. genetic counseling Called office they did not Sent have patient on file. hard faxing information. 04/01/19 [address] [place] [address] [phone]
--- OUTSIDE RECORDS SUMMARY | 2019-10-16 13:29 | XMS REPORT | Continuity of Care Document ---
:2000 External Reference #:[id number] Author Name Sunni Turk MD (transmitted by agent of provider Ginna Nguyen) Address [address], [address] [place] [address] Care Team Providers Name Role Phone Alisia Mcfarland DO - Pediatrics Care Team Information Appliances Sample Maker [phone] Sunni Turk MD - Internal Medicine Care Team Information Appliances Sample Maker [phone] Problems Active Problems Provider Date Right lower [...] Available Vital Signs Date Vital Result Comment 09/29/2019 4:31pm Height 59 inches 4'11" Weight 153.00 lb BP Systolic 120 mmHg BP Diastolic 86 mmHg BMI (Body Mass Index) 30.9 kg/m2 03/27/2019 3:19pm Height 59 inches 4'11" Weight 153.00 lb Heart Rate 82 /min BP Systolic Sitting 117 mmHg BP Diastolic Sitting 65 mmHg Body Temperature 99.2 F O2 % BldC Oximetry 97 % BMI (Body Mass Index) 30.9 kg/m2 Results Test Acquired Date Facility Test Result H/L Range Note Influenza A & B 09/14/2019 [facility] Flu AB (SEE NOTE) [address] [place] [address] [phone] Influenza A Molecular Negative Negative Influenza B Molecular Negative Negative 2 Laboratory test 09/14/2019 [facility] Covid19, PCR NOT DETECTED [address] [place] [address] [phone] Laboratory test 06/23/2019 [facility] Surgical SEE RESULT [address] [place] [address] Order [phone] Laboratory test 05/22/2019 [facility] Rubella Screen Immune Immune finding [address] [place] [address] [phone] Mumps Igg 05/22/2019 [facility] Mumps Virus Positive [address] IgG Antibody [place], [place] [address] [phone] Mumps IgG Antibody Index 2.9 6 Rubeola Measles 05/22/2019 [facility] Rubeola (Measles) Positive 7 Igg AB [address] IgG Antibody [place], [place] [address] [phone] Rubeola IgG Antibody Index 4.4 8 Varicella Zoster 05/22/2019 [facility] Varicella-Zoster IgG Negative 9 Igg AB [address] Antibody [place], [place] [address] [phone] Varicella IgG Antibody Index 0.6 10 Quantiferon-TB 05/22/2019 [facility] QuantiferonTb Negative Negative [address] [address] [phone] TB1 Ag minus Nil Result 0.00 IU/mL TB2 Ag minus Nil Result 0.00 IU/mL Mitogen minus Nil Result 14.46 IU/mL Nil Result 0.03 IU/mL 1 Suboptimal collection technique may reduce sensitivity of test. Refer to the [facility] Test Catalog for collection information: [email or web address] As with all diagnostic procedures, the laboratory results obtained should be used in conjunction with other clinical information available to the physician, including confirmation by another method, as applicable. 2 Derrick Boat Operator: [id number] 3 Test Name Result SARS-CoV-2 RNA NOT DETECTED REFERENCE RANGE: NOT DETECTED Source NASOPHARYNGEAL Patient Symptomatic? NOT GIVEN REVISED RESULTS PREVIOUSLY REPORTED NOT PROVIDED (Reported 09/15/2019 11:53) This test is intended to be performed on respiratory specimens collected from individuals who meet Centers for Disease Control and Prevention (CDC) clinical and/or epidemiological criteria for COVID-19 testing. CDC COVID-19 criteria for testing on human specimens are available at CDC's webpage Information for Healthcare Professionals: Coronavirus Disease 2019 (COVID-19) (https://www.cdc.gov/coronavirus/ 2019-ncov/hcp/index.html). A Detected result is considered a positive test result for COVID-19. This indicates that RNA from SARS-CoV-2 (formerly 2019-nCoV) was detected, and the patient is considered infected with the virus and presumed to be contagious. If requested by public health authorities, specimens will be sent for additional testing. An Inconclusive result means not all of the testing targets were detected, additional sample collection may be considered. A Not Detected (negative) test result for this test means that SARS-CoV-2 RNA was not present in the specimen above the limit of detection. A negative result does not rule out the possibility of COVID-19 and should not be used as the sole basis for treatment or patient management decisions. If COVID-19 is still suspected, based on exposure history together with other clinical findings, re-testing should be considered in consultation with public health authorities. Laboratory test results should always be considered in the context of clinical observations and epidemiological data in making a final diagnosis and patient management decisions. For additional information, please refer to [email or web address] (This link is being provided for informational/ educational purposes only.) This test was developed and its analytical performance characteristics have been determined by [facility]. It has not been cleared or approved by FDA. This assay has been validated pursuant to the CLIA regulations and is used for clinical purposes. This test is pending the Food and Drug Administration's Emergency Use Authorization. Test Performed by: [facility] [id number] [place] [id number] 4 SEE RESULT BELOW Name: JOHAN LYNCH : [address]: Maite Devlin DO Acct: [id number] Unit: [id number] AGE: 19 Location: [place] [address] Re06/23/19 Dis: 06/23/19 SEX: F Status: DIS Klever SPEC: [id number] MICHAEL: 06/23/[address] [facility] [address]: Megha Daniel MD REQ: [id number] RECD: 06/23/19 STATUS: IAIN DELA CRUZ DR: [...] CONTINUED ON NEXT PAGE DEPARTMENT OF PATHOLOGY, [facility] [address] [place] [address] Florentin Mehta M.D. Director [facility] # [id number] GROSS DESCRIPTION 1. The specimen is received [...] 1102 END OF REPORT DEPARTMENT OF PATHOLOGY, [facility] [address] [place], [place] [address] Florentin Mehta M.D. Director [facility] # [id number] 5 Results suggest response to immunization or prior exposure to the virus. REFERENCE VALUE Vaccinated: Positive (>=1.1 AI) Unvaccinated: Negative (<=0.8 AI) 6 Test Performed by: [facility] [place] [address] Griddle Cook: Galen Smith M.D. Ph.D.; CLIA# [id number] 7 Results suggest response to immunization or prior exposure to the virus. REFERENCE VALUE Vaccinated: Positive (>=1.1 AI) Unvaccinated: Negative (<=0.8 AI) 8 Test Performed by: [place] [address] Griddle Cook: Galen Smith M.D. Ph.D.; CLIA# [id number] 9 REFERENCE VALUE Vaccinated: Positive (>=1.1 AI) Unvaccinated: Negative (<=0.8 AI) 10 Test Performed by: [place] [place] [address] Griddle Cook: Galen Smith M.D. Ph.D.; CLIA# [id number] 11 M. tuberculosis infection NOT likely Procedures Description No Information Available Medical Devices Description No Information Available Encounters Type Date Location Provider Dx Diagnosis Office Visit 09/29/2019 [facility] Internal Sunni Turk MD Z00.00 Encntr for 4:20p Medicine - Ccmob general adult medical exam w/o abnormal findings Office Visit 06/23/2019 [facility], R10.31 Right lower 7:00a Of Carlos FLETCHER, FACS quadrant pain R11.2 Nausea with vomiting, unspecified Assessments Date Code Description Provider 09/29/2019 Z00.00 Encounter for general adult medical Sunni Turk MD examination without abnormal findings 06/23/2019 R10.31 Right lower quadrant pain Joseph Graham MD, FACS 06/23/2019 R11.2 Nausea with vomiting, unspecified Joseph Graham MD, FACS Plan of Treatment 09/29/2019 - Sunni Turk MDZ00.00 Encounter for general adult medical examination without abnormal findingsComments:Healthy to perform all duties without restrictionVACCINES:Flu shot every year in the fall.Tetanus: last one done in 05/2010 PAP: Please f/u with CATERPILLAR TRACTOR OPERATOR to get PAP Functional Status Description No Information Available Mental Status Description No Information Available Referrals Description No Information Available
--- OUTSIDE RECORDS SUMMARY | 2019-10-16 13:29 | XMS REPORT | Continuity of Care Document ---
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 Flu AB (SEE NOTE) [address] [place] [address] [phone] Influenza A Molecular Negative Negative Influenza B Molecular Negative Negative 2 Laboratory test 09/14/2019 [facility] Covid19, PCR NOT DETECTED [address] [place] [address] [phone] Laboratory test 06/23/2019 [facility] Surgical SEE RESULT [address] [place] [address] Order [phone] Laboratory test 05/22/2019 [facility] Rubella Screen Immune Immune finding [address] [place], [place] [address] [phone] Mumps Igg 05/22/2019 [facility] Mumps Virus Positive [address] [place] [address] [phone] Mumps IgG Antibody Index 2.9 6 Rubeola Measles 05/22/2019 [facility] Rubeola (Measles) Positive 7 Igg AB [address] IgG Antibody [place], [place] [address] [phone] Rubeola IgG Antibody Index 4.4 8 Varicella Zoster 05/22/2019 [facility] Varicella-Zoster IgG Negative 9 Igg AB [address] Antibody [place], [place] [address] [phone] Varicella IgG Antibody Index 0.6 10 Quantiferon-TB 05/22/2019 [facility] QuantiferonTb Negative Negative 11 Gold Plus [address] Gold Plus Result [place], [place] [address] [phone] TB1 Ag minus Nil Result 0.00 IU/mL TB2 Ag minus Nil Result 0.00 IU/mL Mitogen minus Nil Result 14.46 IU/mL Nil Result 0.03 IU/mL 1 Suboptimal collection technique may reduce sensitivity of test. Refer to the [facility] Test Catalog for collection information: [email or web address] As with all diagnostic procedures, the laboratory results obtained should be used in conjunction with other clinical information available to the physician, including confirmation by another method, as applicable. 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 For additional information, please refer to [email or web address] (This link is being provided for informational/ educational purposes only.) This test was developed and its analytical performance characteristics have been determined by [facility]. It has not been cleared or approved by FDA. This assay has been validated pursuant to the CLIA regulations and is used for clinical purposes. This test is pending the Food and Drug Administration's Emergency Use Authorization. Test Performed by: [facility] [address] [place] [address] 4 SEE RESULT BELOW Name: JOHAN LYNCH : [address]: Maite Devlin DO Acct: [id number] Unit: [id number] AGE: 19 Location: [place] [address] Re06/23/19 Dis: 06/23/19 SEX: F Status: DIS Klever SPEC: [id number] MICHAEL: 06/23/19142 [facility] DR: Megha Daniel MD REQ: [id number] RECD: 06/23/19 STATUS: IAIN DELA CRUZ DR: [...] CONTINUED ON NEXT PAGE DEPARTMENT OF PATHOLOGY, [address] [place], [place] [address] Florentin Mehta M.D. Director [facility] # [id number] GROSS DESCRIPTION 1. The specimen is received [...] 1102 END OF REPORT DEPARTMENT OF PATHOLOGY, [address] [place] [address] Florentin Mehta M.D. Director [facility] # [id number] 5 Results suggest response to immunization or prior exposure to the virus. REFERENCE VALUE Vaccinated: Positive (>=1.1 AI) Unvaccinated: Negative (<=0.8 AI) 6 Test Performed by: [facility] [place] [address] Broomcorn Seeder: Galen Smith M.D. Ph.D.; CLIA# [id number] 7 Results suggest response to immunization or prior exposure to the virus. REFERENCE VALUE Vaccinated: Positive (>=1.1 AI) Unvaccinated: Negative (<=0.8 AI) 8 Test Performed by: [facility] [place] [address] Broomcorn Seeder: Galen Smith M.D. Ph.D.; CLIA# [id number] 9 REFERENCE VALUE Vaccinated: Positive (>=1.1 AI) Unvaccinated: Negative (<=0.8 AI) 10 Test Performed by: [facility] [place] [address] Broomcorn Seeder: Galen Smith M.D. Ph.D.; CLIA# [id number] 11 M. tuberculosis infection NOT likely Procedures [...] the fall.Tetanus: last one done in 05/2010 Functional Status Description No Information Available Mental Status Description No Information Available Referrals Description No Information Available
[2019-10-16] MEDS ORDERED: Ibuprofen TAB* 600 MG PO ONE (13:40)
--- NOTE | 2019-10-16 13:54 | UC ---
Back Pain HPI - HPI Summary HPI Summary: Patient presents to urgent care for evaluation of mid back pain. Patient states 2 days ago she slipped in the shower When catching herself felt a strain to her back. Patient did not have direct contact with her back. Did not strike her head. Did not lose consciousness. No blood HEENT. No neck pain. Patient denies extremity weakness. Patient denies extremity paresthesias. No change to bowel or bladder. Pt took Motrin last naima with some relief. None today. 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 Injury did not occur at work. Pt denies previous injury. Not . Medications as entered in EMR by broodmare foreman reviewed this visit - History of Current Complaint Chief Complaint: UCBackPain Stated Complaint: BACK PAIN Time Seen by Provider: 10/16/19 13:15 Hx Obtained From: Patient Hx Last Menstrual Period: 2 months ago, is on bc Pain Intensity: 7 - Allergies/Home Medications Allergies/Adverse Reactions: Allergies Allergy/AdvReac Type Severity Reaction Status Date / Time No Known Allergies Allergy Verified 10/16/19 13:18 Home Medications: Home Medications Ferrous Sulfate TAB* 325 mg PO DAILY 12/04/18 [History Confirmed 10/16/19] Dicyclomine CAP* [Bentyl CAP*] 10 mg PO TID PRN #20 cap 06/20/19 [Rx Confirmed 10/16/19] Cholecalciferol (Vitamin D3) [Vitamin D3] 2,000 unit PO DAILY 06/22/19 [History Confirmed 10/16/19] Acetaminophen [Athenol] 650 mg PO Q6HR PRN #30 tablet 10/16/19 [Rx] Ibuprofen 600 mg PO Q6HR PRN #30 tablet 10/16/19 [Rx] Ibuprofen [Advil] 400 mg PO ONCE PRN 10/16/19 [History Confirmed 10/16/19] Norethindrone Acetate 1 tab PO QPM 10/16/19 [History Confirmed 10/16/19] PMH/Surg Hx/FS Hx/Imm Hx Previously Healthy: Yes - Surgical History Surgical History: Yes Surgery Procedure, Year, and Place: 2004 T & A, CYST REMOVAL FORM EARS. [facility] cyst removed from her left wrist 2017 - Family History Known Family History: Positive: Cardiac Disease, Hypertension, Non-Contributory - Social History Occupation: Employed Full-time Lives: With Family Alcohol Use: None Substance Use Type: None Smoking Status (MU): Never Smoked Tobacco Have You Smoked in the Last Year: No - Immunization History Vaccination Up to Date: Yes Review of Systems All Other Systems Reviewed And Are Negative: Yes Constitutional: Positive: Negative Skin: Positive: Negative Eyes: Positive: Negative ENT: Positive: Negative Respiratory: Positive: Negative Cardiovascular: Positive: Negative Gastrointestinal: Positive: Negative Genitourinary: Positive: Negative Musculoskeletal: Positive: Other: - back pain Physical Exam - Summary Physical Exam Summary: Vital Signs Reviewed: Yes A+Ox3, no distress- easily changed position sitting to standing, onto exam table Eyes: Conjunctiva Clear, OLEG. EOM intact and full ENT: Hearing grossly normal TM x 2 clear, mmoist, uvula midline, no exudate, no erythema Neck: Positive: Supple Respiratory: Positive: No respiratory distress, No accessory muscle use + CTA throughout no w/r Cardiovascular: RRR nl s1, s2 no m/r CBT <2 sec abd soft + BS nt/nd no guarding, no distension Musculoskeletal Exam: 5/5 AROM ext x 4 against resistance, No spinous process c/ t/l/s full AROM c spine + TTP lower thoracic paraspinal left + SLE b/l + Pain reproduced with direct palpation, movement upper ext (abduction) against resistance Neurological: Positive: Alert, + sensation throughout b/l equal, 2+ bicep, 2+ patellar - no clonus Psychological: Positive: Normal 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 States it occurred 2 days ago when she slipped in the shower and caught herself. Patient did not have contacted on her back. Patient denies any paresthesias or extremity weakness. No bowel or bladder changes. No history of back pain. Patient states she's taken Motrin once with improvement. 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 On exam vital signs reviewed. Patient with point tenderness paraspinal distal thoracic on the left. Patient with good range of motion upper and lower extremities. Patient with non-concerning neurologic exam. No pain over spinous process. Discussed with patient will not do x-rays at this time. Recommend Motrin and Tylenol. Heat. 5. Rest. Stretch. Patient given note to limit lifting for 2 days. Patient comfortable and agreeable to plan. Review of the patient's strict return precautions. States agreement and understanding of plan. - Differential Dx/Diagnosis Provider Diagnosis: Left paraspinal back pain Discharge ED - Sign-Out/Discharge Documenting (check all that apply): Patient Departure All imaging exams completed and their final reports reviewed: No Studies - Discharge Plan Condition: Stable Disposition: HOME Prescriptions: Acetaminophen [Athenol] 650 mg PO Q6HR PRN #30 tablet PRN Reason: back pain Ibuprofen 600 mg PO Q6HR PRN #30 tablet PRN Reason: back pain Patient Education Materials: Low Back Strain (ED), Lower Back Exercises (ED) Forms: *Gen. Provider Communication Referrals: [facility] [address] [Provider Group] No Primary Care Phys,NOPCP [Primary Care Provider] - Additional Instructions: - Okay to alternate ibuprofen (Advil, Motrin) 600mg and Tylenol every 3hours as needed for pain. Take with food. Do NOT take for more than 4-5 days. -Okay to take Zofran, medication for nausea - 15 minutes before [place] as needed -Apply moist heat to your back for 20 minutes at a time, 4-5 times a day. Once your muscles are warm, slow gentle stretching exercises are important - Sleep with a pillow under your knees if you are on your back or between your knees if you are on your side - wear natasha wrap for support -Contact your doctor today to arrange a follow-up appointment next week. Contact your doctor or return with questions or concerns - Billing Disposition and Condition Condition: STABLE Disposition: Home
== END 2019-10-16 13:55 | disposition home or self-care (01) ==
LOC: UCEAST 12:51
DX: M54.5 Low back pain (principal)
CPT/HCPCS: 99212; A9270-GY; G0463

== ENCOUNTER 2022-02-20 17:12 | Observation (INO) ==
[2022-02-20] MEDS ORDERED: Ondansetron 4 mg VIAL 2 MG/ML 2 ml VIAL IV ONE (22:53)
[2022-02-20] MEDS ORDERED: NS 0.9% 1000 ml BAG 1,000 ML IV ONE (22:53)
[2022-02-20 23:36] LABS: ABS Basophils 0.1 10^3/ul (0-0.2); ABS Eosinophils 0.3 10^3/ul (0-0.6); ABS Lymphocytes 3.3 10^3/ul (1.0-4.8); ABS Monocytes 0.7 10^3/ul (0-0.8); ABS Neutrophils 7.9 10^3/ul (1.5-7.7); Eosinophil % 2.2 %; Hematocrit 41 % (35-47); Hemoglobin 13.3 g/dL (12.0-16.0); Lymphocyte % 26.8 %; Mean Corpuscular HGB Conc 33 g/dL (31-36); Mean Corpuscular Hemoglobin 29 pg (27-31); Mean Corpuscular Volume 87 fL (80-97); Mean Platelet Volume 7.4 fL (7.4-10.4); Platelet Count 415 10^3/uL (150-450); Red Blood Count 4.66 10^6 /uL (3.70-4.87); Red Cell Distribution Width 13 % (10-15); White Blood Count 12.1 10^3/uL (3.5-10.8)
[2022-02-21 00:19] LABS: ALT 19 U/L (7-52); AST 19 U/L (13-39); Albumin 4.1 g/dL (3.2-5.2); Albumin/Globulin Ratio 1.5 (1-3); Alkaline Phosphatase 118 U/L (35-149); Anion Gap 8 mmol/L (2-11); Blood Urea Nitrogen 11 mg/dL (6-24); C Reactive Protein 19.06 mg/L (<8.01); CO2 Carbon Dioxide 25 mmol/L (22-32); Calcium 9.3 mg/dL (8.6-10.3); Chloride 105 mmol/L (101-111); Globulin 2.7 g/dL (2-4); Glucose 92 mg/dL (70-100); Lipase < 10 U/L (11.0-82.0); Potassium 3.8 mmol/L (3.5-5.0); Sodium 138 mmol/L (135-145); Total Protein 6.8 g/dL (6.4-8.9); eGFR CKD-EPI 94.1 (>60)
[2022-02-21] MEDS ORDERED: Morphine 4 MG/ML VIAL (1 ml) IV ONE (00:47)
[2022-02-21] MEDS ORDERED: NS 0.9% 1000 ml BAG 1,000 ML IV ONE (01:16)
[2022-02-21] MEDS ORDERED: Piperacillin/Tazobac ADVAN 3.375 GM in NS 0.9% 100 ml BAG 100 ML IV ONE (01:17)
[2022-02-21 04:35] LABS: TSH Ultra Thyroid Stim Horm 0.05 mcIU/mL (0.34-5.60)
[2022-02-21 05:34] LABS: ABS Eosinophils 0.3 10^3/ul (0-0.6); ABS Lymphocytes 3.3 10^3/ul (1.0-4.8); ABS Monocytes 0.6 10^3/ul (0-0.8); ABS Neutrophils 4.3 10^3/ul (1.5-7.7); Eosinophil % 3.2 %; Hematocrit 38 % (35-47); Hemoglobin 12.6 g/dL (12.0-16.0); Lymphocyte % 38.8 %; Mean Corpuscular HGB Conc 33 g/dL (31-36); Mean Corpuscular Hemoglobin 29 pg (27-31); Mean Corpuscular Volume 87 fL (80-97); Mean Platelet Volume 7.1 fL (7.4-10.4); Nucleated Red Blood Cells % 0.1; Platelet Count 363 10^3/uL (150-450); Red Blood Count 4.34 10^6 /uL (3.70-4.87); Red Cell Distribution Width 13 % (10-15); White Blood Count 8.6 10^3/uL (3.5-10.8)
[2022-02-21 06:16] LABS: ALT 16 U/L (7-52); Albumin 3.2 g/dL (3.2-5.2); Albumin/Globulin Ratio 1.6 (1-3); Alkaline Phosphatase 90 U/L (35-149); Blood Urea Nitrogen 9 mg/dL (6-24); CO2 Carbon Dioxide 23 mmol/L (22-32); Calcium 7.5 mg/dL (8.6-10.3); Glucose 86 mg/dL (70-100); Sodium 140 mmol/L (135-145); Total Protein 5.2 g/dL (6.4-8.9); eGFR CKD-EPI 115.8 (>60)
[2022-02-21 06:21] LABS: Anion Gap 4 mmol/L (2-11); Chloride 113 mmol/L (101-111)
[2022-02-21] MEDS: Ondansetron 4 mg VIAL 2 MG/ML 2 ml VIAL IV PRN ×2 (07:14→20:09)
[2022-02-21] MEDS: NS 0.9% 1000 ml BAG 1,000 ML IV SCH (07:22)
[2022-02-21 07:41] LABS: Potassium Redraw 4.1 mmol/L (3.5-5.0)
[2022-02-21 07:44] LABS: Urine Appearance Clear; Urine Bilirubin Negative (Negative); Urine Color Yellow; Urine Glucose Negative (Negative)
[2022-02-21 07:46] LABS: Urine Blood Negative (Negative); Urine Ketones Negative (Negative); Urine Specific Gravity 1.024 (1.002-1.030); Urine pH 5.5 (5.0-9.0)
[2022-02-21 07:47] LABS: Urine Nitrite Negative (Negative); Urine Protein Negative (Negative); Urine Urobilinogen 0.2 (Negative) (Negative)
[2022-02-21] MEDS ORDERED: LEVOTHYROXINE PO SCH (09:00)
[2022-02-21] MEDS: Fluticasone NASAL SPRAY 50MCG 16 gm SPRAY BTL INTRANASAL SCH (10:33)
[2022-02-21] MEDS: HYDROmorphone 0.5 MG/0.5 ML SYRINGE IV SLOW PU PRN ×2 (11:41→15:35)
[2022-02-21] MEDS ORDERED: Acetaminophen IV 1 GM/100ML 1,000 MG/100 ML BAG IV PRN ×2 (16:56→17:02)
[2022-02-21] MEDS: Acetaminophen IV 1 GM/100ML 1,000 MG/100 ML BAG IV PRN (17:17)
[2022-02-22] MEDS: Acetaminophen IV 1 GM/100ML 1,000 MG/100 ML BAG IV PRN (02:19)
[2022-02-22] MEDS: NS 0.9% 1000 ml BAG 1,000 ML IV SCH (05:16)
[2022-02-22 09:14] LABS: Free T3 3.7 pg/mL (2.5-3.9)
[2022-02-22 09:17] LABS: Free T4 0.83 ng/dL (0.61-1.12)
[2022-02-22] MEDS: Ondansetron 4 mg VIAL 2 MG/ML 2 ml VIAL IV PRN (09:51)
[2022-02-22] MEDS: Fluticasone NASAL SPRAY 50MCG 16 gm SPRAY BTL INTRANASAL SCH (10:10)
[2022-02-22] MEDS ORDERED: Prochlorperazine 5 mg/ml 2 ml VIAL (10 mg) IV PRN (14:00)
[2022-02-22] MEDS ORDERED: PEG 3000 GI LAVAGE 1 GALLON PO ONE (15:51)
[2022-02-23] MEDS ORDERED: PEG 3000 GI LAVAGE 1 GALLON PO ONE (06:00)
[2022-02-23] MEDS: Fluticasone NASAL SPRAY 50MCG 16 gm SPRAY BTL INTRANASAL SCH (08:29)
[2022-02-23 11:41] VITALS: BP 120/76
[2022-02-23] MEDS ORDERED: Midazolam 10 mg/10 ml VIAL 1 mg/ml 10 ml VIAL (10 mg) ONE (15:48)
[2022-02-23] MEDS ORDERED: fentaNYL 100 mcg/2 ml 50 MCG/ML VIAL ONE (15:48)
[2022-02-26 17:29] LABS: Calprotectin 119 mcg/g
== END 2022-02-23 18:45 | disposition home or self-care (01) ==
LOC: ED 17:12 → INTOOBSV 02-21 03:31 → EDHOLD 02-21 03:31 → SUATTDRO 02-21 03:31 → SSU 02-21 11:36
PROVIDERS: ADMIT Internal Medicine; ATTEND Student in an Organized Health Care Education/Training Program

== ENCOUNTER 2023-01-12 21:33 | Inpatient (IN) ==
[2023-01-12 22:27] LABS: ABS Basophils 0.1 10^3/uL (0.0-0.1); ABS Eosinophils 0.4 10^3/uL (0.0-0.5); ABS Lymphocytes 3.9 10^3/uL (1.0-4.8); ABS Monocytes 0.7 10^3/uL (0.0-0.9); ABS Neutrophils 5.2 10^3/uL (1.5-7.6); ABS Nucleated RBC 0.01 10^3/ul; Hemoglobin 13.6 g/dL (11.5-14.3); Lymphocyte % 38.5 %; Mean Corpuscular Volume 85.1 fL (80-97); Nucleated Red Blood Cells % 0.1 /100 WBC (0.0-0.4); Platelet Count 423 10^3/uL (150-450); Red Cell Distribution Width 13.8 % (12-17); White Blood Count 10.2 10^3/uL (3.8-11.8)
[2023-01-12 22:42] LABS: ALT 28 U/L (7-52); AST 22 U/L (13-39); Albumin/Globulin Ratio 1.3 (1-3); Alkaline Phosphatase 106 U/L (35-149); Anion Gap 6 mmol/L (2-16); Blood Urea Nitrogen 14 mg/dL (6-24); CO2 Carbon Dioxide 25 mmol/L (22-32); Calcium 9.6 mg/dL (8.6-10.3); Chloride 105 mmol/L (101-111); Creatinine, Serum 0.92 mg/dL (0.51-0.95); Globulin 3.1 g/dL (2-4); Glucose 137 mg/dL (70-100); Potassium 3.7 mmol/L (3.5-5.0); Sodium 136 mmol/L (135-145); Total Protein 7.1 g/dL (6.4-8.9); eGFR CKD-EPI 88.6 (>60)
[2023-01-12 22:59] LABS: Urine Appearance Cloudy; Urine Bilirubin Negative (Negative); Urine Blood Negative (Negative); Urine Color Yellow; Urine Glucose Negative (Negative); Urine Ketones Negative (Negative); Urine Nitrite Negative (Negative); Urine Protein Negative (Negative); Urine Specific Gravity 1.013 (1.002-1.030); Urine Urobilinogen Negative (Negative)
[2023-01-12 23:02] LABS: Urine Bacteria Absent (Absent); Urine Red Blood Cell Trace(0-2/hpf) (Absent); Urine Squamous Epithelial Cell Present (Absent); Urine White Blood Cell Trace(0-5/hpf) (Absent)
[2023-01-12 23:08] LABS: Acetaminophen < 15 mcg/mL; Alcohol, S < 13 mg/dL (<13); Salicylate < 2.50 mg/dL (<30)
[2023-01-12 23:12] LABS: Urine Benzodiazepine Screen None Detected (None Detect); Urine Cannabinoids Screen None Detected (None Detect); Urine Opiates Screen None Detected (None Detect)
[2023-01-12 23:25] LABS: TSH Ultra Thyroid Stim Horm 0.01 mcIU/mL (0.34-5.60)
[2023-01-12 23:27] LABS: Free T4 1.02 ng/dL (0.61-1.12)
[2023-01-13] MEDS ORDERED: Al Hydrox/Mg Hydrox/Simet LIQ 30 ML UDC PO PRN (01:59)
[2023-01-13 02:12] LABS: HCG Pregnancy < 0.60 mIU/mL
[2023-01-13] MEDS: Vitamin THERAPEUTIC TAB PO SCH (08:33)
[2023-01-13] MEDS: Fluticasone NASAL SPRAY 50MCG 16 gm SPRAY BTL BOTH NARES SCH (08:37)
[2023-01-14] MEDS: Fluticasone NASAL SPRAY 50MCG 16 gm SPRAY BTL BOTH NARES SCH (08:10)
[2023-01-14] MEDS: Vitamin THERAPEUTIC TAB PO SCH (08:11)
[2023-01-14 08:25] LABS: HDL Cholesterol 45.9 mg/dL
[2023-01-14 09:52] VITALS: BP 125/74
== END 2023-01-14 14:07 | disposition home or self-care (01) | DRG 753 ==
LOC: ED 21:33 → BSU 01-13 01:36
PROVIDERS: ADMIT Psychiatry & Neurology Psychiatry; ATTEND Psychiatry & Neurology Psychiatry